=== PATIENT | female | born 1980 | race Caucasian/White ===

== ENCOUNTER 2018-02-02 17:30 | Emergency (ER) | payer SELFPAY ==
[2018-02-02] MEDS ORDERED: NA CHLORIDE 0.9% 1,000 ML ONE (19:28)
[2018-02-02] MEDS ORDERED: METOCLOPRAMIDE 10 MG/2mL INJ ONE (19:28)
[2018-02-02] MEDS ORDERED: LISINOPRIL 10 MG TAB ONE (19:28)
[2018-02-02] MEDS ORDERED: KETOROLAC 30 MG/ML INJ ONE (19:41)
[2018-02-02 19:52] LABS: Absolute Lymphocytes (CBC) 1.7 K/uL (0.7-4.9); Absolute Monocytes 0.3 K/uL (0.1-1.3); Absolute Neutrophil 10.1 K/uL (1.8-8.0); Basophils % 0.5 % (0-1.3); Eosinophils % 0.5 % (0-4.4); Hematocrit 40.8 % (36.0-45.0); Lymphocytes % 13.6 % (15.3-44.8); MCH 29.8 pg (27.0-35.0); MCV 87.4 fL (80-100); MPV 9.5 fL (7.6-11.3); Monocytes % 2.6 % (3.3-12.3); Protime INR 1.12; RBC Red Blood Cell Count 4.67 M/uL (3.86-4.86)
--- NOTE | 2018-02-02 19:54 | RAD REPORT ---
EXAM DESCRIPTION: Connie Single View02/02/2018 7:45 pm CLINICAL HISTORY: Cough COMPARISON: July 2017 FINDINGS: The lungs appear clear of acute infiltrate. The heart is normal size IMPRESSION: No acute abnormalities displayed
[2018-02-02 20:05] LABS: ALT/SGPT 48 U/L (12-78); AST/SGOT 41 U/L (15-37); Albumin 3.7 g/dL (3.4-5.0); Alkaline Phosphatase 84 U/L (45-117); BUN Blood Urea Nitrogen 15 mg/dL (7-18); Bicarbonate 27 mmol/L (21-32); Bilirubin Direct < 0.1 mg/dL (0-0.2); Bilirubin Total 0.2 mg/dL (0.2-1.0); Glucose Level 104 mg/dL (74-106); Magnesium 2.2 mg/dL (1.8-2.4); NT PRO-BNP 18 pg/mL (<125); Potassium 3.9 mmol/L (3.5-5.1); Protein, Total 8.3 g/dL (6.4-8.2); Sodium Level 140 mmol/L (136-145); Troponin (Emerg Dept Use Only) < 0.02 ng/mL (0.0-0.045)
--- NOTE | 2018-02-02 20:29 | EDPHYS ---
Physician Documentation [facility] Name: Zakia Franks Age: 37 yrs Sex: Female : 1980 Arrival Date: 02/02/2018 Time: 17:34 Bed 7 Private MD: ED Physician Celestina Driscoll HPI: 02/02 20:25 This 37 yrs old Female presents to ER via Ambulatory with complaints of ma2 Vomiting, Headache. 20:25 The patient presents to the emergency department with nausea, headache. Possible ma2 causes: unknown. Associated signs and symptoms: Pertinent positives: nausea, cough, headache severe, gradual similar to old headaches before, , Pertinent negatives: abdominal pain, belching, constipation, dysuria, flatulence, GI bleeding, nausea. Severity of symptoms: At their worst the symptoms were moderate in the emergency department the symptoms are unchanged have improved. The patient has experienced similar episodes in the past. 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 - Social history:: Smoking status: Patient uses tobacco products, smokes one pack cigarettes per day. Patient/guardian denies using alcohol, street drugs, The patient lives alone, with family. - Ebola Screening: : No symptoms or risks identified at this time. - Family history:: not pertinent. ROS: 20:25 Constitutional: Negative for fever, chills, and weight loss, Cardiovascular: Negative ma2 for chest pain, palpitations, and edema, Respiratory: Negative for shortness of breath, cough, wheezing, and pleuritic chest pain, Abdomen/GI: Negative for abdominal pain, nausea, diarrhea, and constipation. 20:25 Respiratory: Positive for cough, Negative for dyspnea on exertion, hemoptysis, orthopnea, pleurisy, shortness of breath, sputum production, wheezing. 20:25 Neuro: Positive for headache, Negative for altered mental status, dizziness, gait disturbance, loss of consciousness, numbness, seizure activity, syncope, near syncope, tinnitus, visual changes, weakness, acute changes. 20:25 All other systems are negative. Exam: 20:25 Constitutional: This is a well developed, well nourished patient who is awake, alert, ma2 and in no acute distress. Eyes: Pupils equal round and reactive to light, extra-ocular motions intact. Lids and lashes normal. Conjunctiva and sclera are non-icteric and not injected. Cornea within normal limits. Periorbital areas with no swelling, redness, or edema. Chest/axilla: Normal chest wall appearance and motion. Nontender with no deformity. No lesions are appreciated. Cardiovascular: Regular rate and rhythm with a normal S1 and S2. No gallops, murmurs, or rubs. Normal PMI, no JVD. No pulse deficits. Respiratory: Lungs have equal breath sounds bilaterally, clear to auscultation and percussion. No rales, rhonchi or wheezes noted. No increased work of breathing, no retractions or nasal flaring. Skin: Warm, dry with normal turgor. Normal color with no rashes, no lesions, and no evidence of cellulitis. MS/ Extremity: Pulses equal, no cyanosis. Neurovascular intact. Full, normal range of motion. Neuro: Awake and alert, GCS 15, oriented to person, place, time, and situation. Cranial nerves II-XII grossly intact. Motor strength 5/5 in all extremities. Sensory grossly intact. Cerebellar exam normal. Normal gait. Vital Signs: 18:06 BP 148 / 110; Pulse 87; Resp 18 S; Temp 98.0(TE); Pulse Ox 100% on R/A; Weight 102.06 aa5 kg (M); Height 5 ft. 7 in. (170.18 cm) (M); Pain 10/10; 19:12 BP 149 / 107; Pulse 82; Resp 18; Pulse Ox 100% on R/A; lp1 20:04 BP 143 / 91; Pulse 71; Resp 18; Pulse Ox 100% on R/A; Pain 6/10; lp1 18:06 Body Mass Index 35.24 (102.06 kg, 170.18 cm) aa5 MDM: 19:00 Patient medically screened. wy2 20:25 Differential diagnosis: Nonspecific abd pain, cholecystitis, pancreatitis, viral ma2 gastroenteritis, gastroenteritis. Data reviewed: vital signs, EMS record, assisted records, lab test result(s), EKG. Counseling: I had a detailed discussion with the patient and/or guardian regarding: the historical points, exam findings, and any diagnostic results supporting the discharge/admit diagnosis, the need for outpatient follow up, the need for further work-up and treatment in the hospital, the need to transfer to another facility. Medical screen evaluation completed. EMTALA emergency medical condition absent. Response to treatment: the patient's symptoms have markedly improved after treatment. 02/02 19:14 Order name: Basic Metabolic Panel; Complete Time: 20:14 [facility] 02/02 19:14 Order name: CBC with Diff; Complete Time: 20:14 [facility] 02/02 19:14 Order name: LFT's; Complete Time: 20:14 [facility] 02/02 19:14 Order name: Magnesium; Complete Time: 20:14 [facility] 02/02 19:14 Order name: NT PRO-BNP; Complete Time: 20:14 [facility] 02/02 19:14 Order name: PT-INR; Complete Time: 20:14 [facility] 02/02 19:14 Order name: Troponin (emerg Dept Use Only); Complete Time: 20:14 [facility] 02/02 19:14 Order name: XRAY Chest (1 view); Complete Time: 20:14 [facility] 02/02 19:14 Order name: EKG; Complete Time: 19:15 [facility] 02/02 19:14 Order name: Cardiac monitoring; Complete Time: 19:39 wy02/02 19:14 Order name: EKG - Nurse/Tech; Complete Time: 19:39 [facility] 02/02 19:14 Order name: IV Saline Lock; Complete Time: 19:39 [facility] 02/02 19:14 Order name: Labs collected and sent; Complete Time: 19:40 [facility] 02/02 19:14 Order name: O2 Per Protocol; Complete Time: 19:40 [facility] 02/02 19:14 Order name: O2 Sat Monitoring; Complete Time: 19:40 ma2 Administered Medications: 19:37 Drug: NS 0.9% 1000 ml Route: IV; Rate: 1 bolus; Site: right antecubital; lp1 20:49 Follow up: IV Status: Completed infusion; IV Intake: 1000ml lp1 19:37 CANCELLED (Med not available ): Benadryl 50 mg IVP once lp1 19:38 Drug: Reglan 10 mg Route: IVP; Site: right antecubital; lp1 20:05 Follow up: Response: No adverse reaction; Nausea is decreased lp1 19:38 Drug: Lisinopril 10 mg Route: PO; lp1 20:05 Follow up: Response: Blood pressure is lowered lp1 19:38 Drug: TORadol 30 mg Route: IVP; Site: right antecubital; lp1 20:05 Follow up: Response: Pain is decreased lp1 Disposition: 02/02/18 20:28 Discharged to Home. Impression: Headache, Bronchitis, not specified as acute or chronic. - Condition is Stable. - Discharge Instructions: Acute Bronchitis, Adult. - Prescriptions for Reglan 10 mg Oral Tablet - take 1 tablet by ORAL route every 6 hours . take 30 minutes before meals and at bedtime; 100 tablet. Zithromax Z- Atilio 250 mg Oral Tablet - take 1 tablet by ORAL route once daily for 3 days; 3 tablet. Lisinopril- Hydrochlorothiazide 20-12.5 mg Oral Tablet - take 1 tablet by ORAL route once daily; 60 tablet. - Medication Reconciliation Form, Thank You Letter, Antibiotic Education, Prescription Opioid Use form. - Follow up: Private Physician; When: Tomorrow; Reason: Continuance of care. - Problem is new. - Symptoms are unchanged. Signatures: Dispatcher [employer] EDMS Opal Lacy RN RN aa5 Yessy Arambula RN RN lp1 Celestina Driscoll MD MD ma2 Corrections: (The following items were deleted from the chart) 19:37 19:14 Benadryl 50 mg IVP once ordered. ma2 lp1 20:49 20:28 02/02/2018 20:28 Discharged to Home. Impression: Headache; Bronchitis, not lp1 specified as acute or chronic. Condition is Stable. Forms are Medication Reconciliation Form, Thank You Letter, Antibiotic Education, Prescription Opioid Use. Follow up: Private Physician; When: Tomorrow; Reason: Continuance of care. Problem is new. Symptoms are unchanged. ma2
--- NOTE | 2018-02-02 20:29 | ER ---
Nurse's Notes [facility] Name: Zakia Franks Age: 37 yrs Sex: Female : 1980 Arrival Date: 02/02/2018 Time: 17:34 Bed 7 Private MD: Diagnosis: Headache;Bronchitis, not specified as acute or chronic Presentation: 02/02 18:01 Presenting complaint: Patient states: frontal headache that began today. Pt also aa5 reports nausea and vomiting. Pt also reports cough that began 2 weeks ago. Transition of care: patient was not received from another setting of care. Onset of symptoms was February 02, 2018. Risk Assessment: Do you want to hurt yourself or someone else? Patient reports no desire to harm self or others. Initial Sepsis Screen: Does the patient meet any 2 criteria? No. Patient's initial sepsis screen is negative. Does the patient have a suspected source of infection? No. Patient's initial sepsis screen is negative. Care prior to arrival: None. 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 - Social history:: Smoking status: Patient uses tobacco products, smokes one pack cigarettes per day. Patient/guardian denies using alcohol, street drugs, The patient lives alone, with family. - Ebola Screening: : No symptoms or risks identified at this time. - Family history:: not pertinent. Screenin:16 Abuse screen: Denies threats or abuse. Denies injuries from another. Nutritional lp1 screening: No deficits noted. Tuberculosis screening: No symptoms or risk factors identified. Fall Risk None identified. Assessment: 19:13 General: Appears uncomfortable, Behavior is cooperative. Pain: Complains of pain in lp1 head Pain currently is 10 out of 10 on a pain scale. Quality of pain is described as crushing. Neuro: Level of Consciousness is awake, alert, obeys commands, Oriented to person, place, time, situation, Moves all extremities. Full function Gait is steady, Pupils are PERRLA, Reports headache in entire photophobia. Cardiovascular: Patient's skin is warm and dry. Respiratory: Reports cough that is persistent Respiratory effort is even, unlabored, Respiratory pattern is regular, Breath sounds are clear bilaterally. GI: Abdomen is non-distended, Reports nausea. : No signs and/or symptoms were reported regarding the genitourinary system. EENT: No signs and/or symptoms were reported regarding the EENT system. Derm: Skin is pink, warm \T\ dry. Musculoskeletal: Circulation, motion, and sensation intact. 20:03 Reassessment: Patient states pain decreased at this time; asking when she will be lp1 discharged, aware of waiting for blood results. Vital Signs: 18:06 BP 148 / 110; Pulse 87; Resp 18 S; Temp 98.0(TE); Pulse Ox 100% on R/A; Weight 102.06 aa5 kg (M); Height 5 ft. 7 in. (170.18 cm) (M); Pain 10/10; 19:12 BP 149 / 107; Pulse 82; Resp 18; Pulse Ox 100% on R/A; lp1 20:04 BP 143 / 91; Pulse 71; Resp 18; Pulse Ox 100% on R/A; Pain 6/10; lp1 18:06 Body Mass Index 35.24 (102.06 kg, 170.18 cm) aa5 ED Course: 17:34 Patient arrived in ED. mr 18:03 Triage completed. aa5 18:03 Arm band placed on. aa5 19:00 Celestina Driscoll MD is Attending Physician. ma2 19:03 Yessy Arambula, OSCAR is Primary Nurse. lp1 19:30 Inserted saline lock: 20 gauge in right antecubital area, using aseptic technique. lp1 Blood collected. 19:41 Patient has correct armband on for positive identification. Placed in gown. Call light lp1 in reach. air sampling and monitoring on. Pulse ox on. NIBP on. 19:45 XRAY Chest (1 view) In Process Unspecified. EDMS 20:48 No provider procedures requiring assistance completed. IV discontinued, No lp1 redness/swelling at site. Pressure dressing applied. Administered Medications: 19:37 Drug: NS 0.9% 1000 ml Route: IV; Rate: 1 bolus; Site: right antecubital; lp1 20:49 Follow up: IV Status: Completed infusion; IV Intake: 1000ml lp1 19:37 CANCELLED (Med not available ): Benadryl 50 mg IVP once lp1 19:38 Drug: Reglan 10 mg Route: IVP; Site: right antecubital; lp1 20:05 Follow up: Response: No adverse reaction; Nausea is decreased lp1 19:38 Drug: Lisinopril 10 mg Route: PO; lp1 20:05 Follow up: Response: Blood pressure is lowered lp1 19:38 Drug: TORadol 30 mg Route: IVP; Site: right antecubital; lp1 20:05 Follow up: Response: Pain is decreased lp1 Intake: 20:49 IV: 1000ml; Total: 1000ml. lp1 Outcome: 20:28 Discharge ordered by . vini 20:48 Discharged to home ambulatory. lp1 20:48 Condition: good 20:48 Discharge instructions given to patient, Instructed on discharge instructions, follow up and referral plans. medication usage, Demonstrated understanding of instructions, follow-up care, medications, Prescriptions given X 3. 20:49 Patient left the ED. lp1 Signatures: Dispatcher [employer] EDMA Camille Sherman ReginoOpal RN RN aa5 Yessy Arambula RN RN lp1 Celestina Driscoll MD MD ma2 Corrections: (The following items were deleted from the chart) 20:04 19:13 Neuro: Level of Consciousness is awake, alert, obeys commands, Oriented to lp1 person, place, time, situation, Moves all extremities. Full function Gait is steady, Pupils are PERRLA, Reports headache in entire lp1
[2018-02-02 21:16] VITALS: TEMP 98; O2SAT 100
[2018-02-02 21:18] VITALS: BP 143/91
--- NOTE | 2018-02-03 09:25 | EKG ---
Test Date: 2018-02-02 Test Time: 19:34:57 Ed Case Manager: DARIEL MEASUREMENT RESULTS: Intervals: Rate: 74 GA: 146 QRSD: 72 QT: 394 QTc: 437 D Hanis: P: 32 GA: 146 QRS: 24 T: 34 INTERPRETIVE STATEMENTS: Normal sinus rhythm with sinus arrhythmia Normal ECG Compared to ECG 07/29/2017 16:05:04 No significant changes Electronically Signed On 02-03-18 09:24:07 CDT by Micheal Rowe
== END 2018-02-02 20:49 | disposition home or self-care (01) ==
LOC: ER 17:30
DX: J40 Bronchitis, not specified as acute or chronic (principal); I10 Essential (primary) hypertension
CPT/HCPCS: 36415; 71045; 80048; 80076; 83735; 83880; 84484; 85025; 85610; 93005; 96361; 96374; 96375; 99284; J2765; J7030

== ENCOUNTER 2018-04-30 11:40 | Emergency (ER) | payer SELFPAY ==
[2018-04-30 14:58] LABS: Absolute Lymphocytes (CBC) 3.3 K/uL (0.7-4.9); Absolute Monocytes 0.4 K/uL (0.1-1.3); Absolute Neutrophil 4.5 K/uL (1.8-8.0); Eosinophils % 2.7 % (0-4.4); Hematocrit 39.6 % (36.0-45.0); MCH 29.7 pg (27.0-35.0); MCV 87.6 fL (80-100); MPV 9.1 fL (7.6-11.3); Monocytes % 5.1 % (3.3-12.3); RBC Red Blood Cell Count 4.52 M/uL (3.86-4.86)
[2018-04-30 15:12] LABS: ALT/SGPT 33 U/L (12-78); AST/SGOT 19 U/L (15-37); Albumin 3.7 g/dL (3.4-5.0); Alkaline Phosphatase 78 U/L (45-117); BUN Blood Urea Nitrogen 15 mg/dL (7-18); Bicarbonate 26 mmol/L (21-32); Bilirubin Direct < 0.1 mg/dL (0-0.2); Bilirubin Total 0.3 mg/dL (0.2-1.0); Glucose Level 91 mg/dL (74-106); Lipase 150 U/L (73-393); Magnesium 2.2 mg/dL (1.8-2.4); Potassium 3.9 mmol/L (3.5-5.1); Sodium Level 140 mmol/L (136-145)
[2018-04-30 16:51] LABS: Urine Blood NEGATIVE (NEG); Urine Glucose NEGATIVE (NEG); Urine Protein NEGATIVE (NEG); Urine pH 6.5 (5.0-7.0)
--- NOTE | 2018-04-30 17:07 | RAD REPORT ---
EXAM DESCRIPTION: CT - Head C Spine Mpr Wo Con - 04/30/2018 3:21 pm CLINICAL HISTORY: Headache and right hand numbness COMPARISON: None. TECHNIQUE: Computed axial tomography of the head and cervical spine was obtained. Sagittal and coronal reconstruction was performed. All CT scans are performed using dose optimization technique as appropriate and may include automated exposure control or mA/KV adjustment according to patient size. FINDINGS: An intracranial bleed is not seen. The ventricles are normal in caliber. An extra-axial fl uid collection is not noted.Fluid within the visualized sinuses and mastoids is not seen A cervical fracture is not visualized. No dislocation is noted. Central spinal stenosis is not noted. Neural foramina appear patent. Large disc bulge/herniation not seen Increased density is present within the upper thoracic/ cervical esophagus presumably representing ga stroesophageal reflux of oral contrast IMPRESSION: No acute intracranial abnormality is seen. A cervical fracture is not visualized. Spinal stenosis is not noted. If the patient continues to have symptoms to suggest intracranial /spinal cord pathology then MRI would be recommended
--- NOTE | 2018-04-30 17:13 | RAD REPORT ---
EXAM DESCRIPTION: CT - Abdomen Pelvis W Contrast - 04/30/2018 4:52 pm CLINICAL HISTORY: Abdominal pain. COMPARISON: July 2017 TECHNIQUE: Computed axial tomography of the abdomen and pelvis was obtained. 100 cc Isovue-300 is ad ministered intravenously. Oral contrast was given. All CT scans are performed using dose optimization technique as appropriate and may include automated exposure control or mA/KV adjustment according to patient size. FINDINGS: Fatty liver. Contrast present in the esophagus Spleen, pancreas, adrenals and kidneys appear unremarkable. Small renal cysts Umbilical hernia has a neck of 2 centimeters. Spondylosis involves lumbar spine resulting spinal sten osis. The appendix is normal caliber. There is no evidence of diverticulitis Uterus and gallbladder have been removed IMPRESSION: Gastroesophageal reflux Fatty liver
--- NOTE | 2018-04-30 17:26 | ER ---
Nurse's Notes [facility] Name: Zakia Franks Age: 37 yrs Sex: Female : 1980 Arrival Date: 04/30/2018 Time: 11:43 Bed 17 Private MD: Diagnosis: Headache;Unspecified abdominal pain;Paresthesia of skin-Right hand Presentation: 04/30 12:22 Presenting complaint: Patient states: "I've been passing blood clots in my stool since january, but its starting to get worse. I've had a real real bad headache for the past 3 days and its getting to where it makes me throw up. I have high blood pressure and I've been out of my medicine. And since I was already here, since I haven't been able to feel the first three fingers on my hand." Patient states that she can move her fingers normally but she can't feel it. 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 Patient states the she see the blood and clots when she wipes after having a bowel movement. Transition of care: patient was not received from another setting of care. Onset of symptoms was April 30, 2018. Risk Assessment: Do you want to hurt yourself or someone else? Patient reports no desire to harm self or others. Initial Sepsis Screen: Does the patient meet any 2 criteria? HR > 90 bpm. Does the patient have a suspected source of infection? No. Patient's initial sepsis screen is negative. Care prior to arrival: None. 12:22 Method Of Arrival: Ambulatory aj1 12:22 Acuity: NILO 3 aj1 Triage Assessment: 12:27 General: Appears in no apparent distress. comfortable, Behavior is calm, cooperative, aj1 appropriate for age. Pain: Complains of pain in left zoroastrianism and right zoroastrianism. Pain: Pain currently is 7 out of 10 on a pain scale. Neuro: Level of Consciousness is awake, alert, obeys commands, Moves all extremities. Full function Gait is steady, Speech is normal, Facial symmetry appears normal. Cardiovascular: Patient's skin is warm and dry. Respiratory: Airway is patent Respiratory effort is even, unlabored, Respiratory pattern is regular, symmetrical. GI: Reports blood when she wipes after having a bowel movement. 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 - Social history:: Smoking status: Patient/guardian denies using tobacco. - Ebola Screening: : No symptoms or risks identified at this time. Screenin:06 Abuse screen: Denies threats or abuse. Nutritional screening: No deficits noted. em Tuberculosis screening: No symptoms or risk factors identified. Fall Risk None identified. Assessment: 14:25 General: Appears in no apparent distress. comfortable, Behavior is calm, cooperative, em Reports fever for. Pain: Pain currently is 8 out of 10 on a pain scale. Neuro: Level of Consciousness is awake, alert, obeys commands, Oriented to person, place, time, situation, Reports headache paresthesias in right arm. Cardiovascular: Patient's skin is warm and dry. Respiratory: Airway is patent Respiratory effort is even, unlabored, Respiratory pattern is regular, symmetrical. GI: Abdomen is round Bowel sounds present X 4 quads. Abd is soft and non tender X 4 quads. Reports rectal bleeding, nausea, since off and on since January Patient currently denies hemorrhoids. : Urine is clear, Denies burning with urination. Derm: Skin is intact, is healthy with good turgor, Skin is pink, warm \\T\\ dry. Musculoskeletal: Range of motion: intact in all extremities. 14:40 Reassessment: I agree with previous assessment. hb 16:14 Reassessment: Patient appears in no apparent distress at this time. Patient and/or em family updated on plan of care and expected duration. Pain level reassessed. Patient is alert, oriented x 3, equal unlabored respirations, skin warm/dry/pink. 17:00 Reassessment: Patient appears in no apparent distress at this time. Patient and/or em family updated on plan of care and expected duration. Pain level reassessed. Patient is alert, oriented x 3, equal unlabored respirations, skin warm/dry/pink. rates pain 3/10 Patient states feeling better. Patient states symptoms have improved. Vital Signs: 12:27 BP 148 / 99; Pulse 92; Resp 20; Temp 97.4; Pulse Ox 98% on R/A; Weight 106.59 kg (R); aj1 Height 5 ft. 7 in. (170.18 cm) (R); Pain 8/10; 14:25 BP 132 / 97; Pulse 98; Resp 16; Pulse Ox 99% on R/A; Pain 7/10; em 16:11 BP 139 / 90; Pulse 57; Resp 18; Pulse Ox 99% on R/A; Pain 3/10; em 17:15 BP 142 / 94; Pulse 72; Resp 18; Pulse Ox 99% on R/A; Pain 3/10; em 12:27 Body Mass Index 36.81 (106.59 kg, 170.18 cm) aj1 ED Course: 11:43 Patient arrived in ED. sb2 12:06 Patient's name was called from ER [facility]. No response. aj1 12:26 Triage completed. aj1 12:27 Arm band placed on Patient placed in waiting room, Patient notified of wait time. aj1 13:10 Patient's name was called from ER [facility]. No response. aj1 13:59 Derek Wayne PA is PHCP. cp 13:59 Prasad Fulton MD is Attending Physician. cp 14:20 Patient has correct armband on for positive identification. Placed in gown. Bed in low em position. Call light in reach. Side rails up X2. 14:20 Initial lab(s) drawn, by me, sent to lab. Urine collected: clean catch specimen, clear. em Inserted saline lock: 20 gauge in right antecubital area, using aseptic technique. Blood collected. 14:21 Steve Doran LVN is Primary Nurse. em 15:14 Oral contrast given. jg6 15:21 CT Head C Spine In Process Unspecified. EDMS 16:53 CT Abd/Pelvis - W/Contrast: blood in stool In Process Unspecified. EDMS 17:24 Deon Reeves MD is Referral Physician. cp 17:25 Yamil Mason MD is Referral Physician. cp 18:00 No provider procedures requiring assistance completed. IV discontinued, intact, em bleeding controlled, No redness/swelling at site. Pressure dressing applied. Administered Medications: 18:00 Not Given (Physician Discretion): Decadron - Dexamethasone 10 mg IVP once em 18:00 Not Given (Physician Discretion): Reglan 10 mg IVP once; over 1 to 2 minutes em Outcome: 17:26 Discharge ordered by . shruthi 18:00 Discharged to home ambulatory. em 18:00 Condition: good 18:00 Discharge instructions given to patient, Instructed on discharge instructions, follow up and referral plans. medication usage, Demonstrated understanding of instructions, follow-up care, medications, Prescriptions given X 2. 18:04 Patient left the ED. em Signatures: Dispatcher [employer] Sapna Ingram RN RN aj1 Steve Doran, INFORMATION SUPPORT PROJECT MANAGER INFORMATION SUPPORT PROJECT MANAGER em Derek Wayne, HADLEY PA Zakia Mcnamara RN RN Salena Haider sb2 Ernestine Rivas6 Corrections: (The following items were deleted from the chart) 15:17 14:25 Neuro: Level of Consciousness is awake, alert, obeys commands, Oriented to em person, place, time, situation, Reports headache em
--- NOTE | 2018-04-30 17:26 | EDPHYS ---
Physician Documentation [facility] Name: Zakia Franks Age: 37 yrs Sex: Female : 1980 Arrival Date: 04/30/2018 Time: 11:43 Bed 17 Private MD: ED Physician Prasad Fulton HPI: 04/30 14:25 This 37 yrs old Female presents to ER via Ambulatory with complaints of cp Bloody Stools, Headache, Numbness - FINGERS. 14:25 The patient or guardian complains of decreased sensation of right thumb and right index cp and right middle fingers. 14:25 Context: resulted from unknown cause, started last month. cp 14:25 Treatment prior to arrival includes: no previous treatment. The patient presents to the emergency department with rectal bleeding, a small amount, bright red blood with bowel movement, with multiple such episodes, intermittent. 14:25 Onset: The symptoms/episode began/occurred 4 month(s) ago. cp 14:25 Abdominal pain: described as waxing and waning, located in the abdomen diffusely, that cp does not radiate. Associated signs and symptoms: Pertinent negatives: chest pain, constipation, fever, vomiting. 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 - Social history:: Smoking status: Patient/guardian denies using tobacco. - Ebola Screening: : No symptoms or risks identified at this time. ROS: 14:30 Constitutional: Negative for body aches, chills, fever, poor PO intake. cp 14:30 Eyes: Positive for photophobia, Negative for discharge, redness. cp 14:30 ENT: Negative for drainage from ear(s), ear pain, sore throat, difficulty swallowing, difficulty handling secretions. 14:30 Neck: Positive for tenderness, Negative for injury or acute deformity, stiffness, bony tenderness. 14:30 Cardiovascular: Negative for chest pain, edema, palpitations. 14:30 Respiratory: Negative for cough, shortness of breath, wheezing. 14:30 Abdomen/GI: Positive for abdominal pain, rectal bleeding, Negative for vomiting, diarrhea, constipation, anorexia. 14:30 Back: Negative for pain at rest, pain with movement. 14:30 : Negative for urinary symptoms. 14:30 Skin: Negative for cellulitis, rash. 14:30 Neuro: Positive for headache, decreased sensation of left hand, Negative for altered mental status, seizure activity, weakness. 14:30 All other systems are negative. Exam: 14:35 Constitutional: The patient appears in no acute distress, alert, awake, cp non-diaphoretic, non-toxic, well developed, well nourished. 14:35 Head/Face: Normocephalic, atraumatic. cp 14:35 Eyes: Periorbital structures: appear normal, Pupils: equal, round, and reactive to light and accomodation, Extraocular movements: intact throughout, Conjunctiva: normal, no exudate, no injection, Sclera: no appreciated abnormality, Lids and lashes: appear normal, bilaterally. 14:35 ENT: External ear(s): are unremarkable, Ear canal(s): are normal, clear, TM's: bulging, is not appreciated, bilaterally, dullness, bilaterally, erythema, is not appreciated, bilaterally, Nose: is normal, Mouth: Lips: moist, Oral mucosa: pink and intact, moist, Posterior pharynx: is normal, airway is patent, no erythema, no exudate, Voice: is normal. 14:35 Neck: ROM/movement: pain, that is mild, with flexion, limited range of motion, is not appreciated, Meningeal signs: are not present, nuchal rigidity, is not appreciated, Lymph nodes: no appreciated lymphadenopathy. 14:35 Chest/axilla: Inspection: normal, Palpation: is normal, no crepitus, no tenderness. 14:35 Cardiovascular: Rate: normal, Rhythm: regular, Edema: is not appreciated, JVD: is not appreciated. 14:35 Respiratory: the patient does not display signs of respiratory distress, Respirations: normal, no use of accessory muscles, no retractions, no splinting, no tachypnea, labored breathing, is not present, Breath sounds: are clear throughout, no decreased breath sounds, no stridor, no wheezing. 14:35 Abdomen/GI: Inspection: abdomen appears normal, Bowel sounds: active, all quadrants, Palpation: soft, in all quadrants, mild abdominal tenderness, in all quadrants, rebound tenderness, is not appreciated, voluntary guarding, is not appreciated, involuntary guarding, is not appreciated. 14:35 Back: CVA tenderness, is absent. 14:35 Musculoskeletal/extremity: the right hand decreased sensation. 14:35 Skin: cellulitis, is not appreciated, no rash present. 14:35 Neuro: Orientation: to person, place \T\ time. Mentation: is normal, Cerebellar function: is grossly normal, Motor: moves all fours, strength is normal. 14:56 : Rectal exam: Rectal tone: normal, Guaiac testing: insufficient stool is present to send for examination. Vital Signs: 12:27 BP 148 / 99; Pulse 92; Resp 20; Temp 97.4; Pulse Ox 98% on R/A; Weight 106.59 kg (R); aj1 Height 5 ft. 7 in. (170.18 cm) (R); Pain 8/10; 14:25 BP 132 / 97; Pulse 98; Resp 16; Pulse Ox 99% on R/A; Pain 7/10; em 16:11 BP 139 / 90; Pulse 57; Resp 18; Pulse Ox 99% on R/A; Pain 3/10; em 17:15 BP 142 / 94; Pulse 72; Resp 18; Pulse Ox 99% on R/A; Pain 3/10; em 12:27 Body Mass Index 36.81 (106.59 kg, 170.18 cm) aj1 MDM: 14:04 Patient medically screened. cp 15:00 Differential diagnosis: colitis, hemorrhoids, rectal fissure, carpal tunnel, cp neuropathy, cervical disc bulge gastritis, diverticulitis. 17:25 Data reviewed: vital signs, nurses notes, lab test result(s), radiologic studies, CT cp scan. 17:25 Counseling: I had a detailed discussion with the patient and/or guardian regarding: the historical points, exam findings, and any diagnostic results supporting the discharge/admit diagnosis, the presence of at least one elevated blood pressure reading (>120/80) during this emergency department visit, lab results, radiology results, the need for outpatient follow up, a family practitioner, a returns clerk, a neurologist, to return to the emergency department if symptoms worsen or persist or if there are any questions or concerns that arise at home. 04/30 14:20 Order name: Basic Metabolic Panel; Complete Time: 16:14 cp 04/30 17:17 Interpretation: Normal except: CL 108; GFR 70. 04/30 14:20 Order name: CBC with Diff; Complete Time: 16:14 04/30 14:20 Order name: Creatinine for Radiology; Complete Time: 16:14 04/30 14:20 Order name: Hepatic Function; Complete Time: 16:14 20 17:20 Interpretation: Normal except: GLOB 4.3; A/G 0.9. 04/30 14:20 Order name: Lipase; Complete Time: 16:14 04/30 14:20 Order name: Magnesium; Complete Time: 16:14 04/30 14:20 Order name: IV Saline Lock; Complete Time: 14:46 04/30 14:20 Order name: PT-INR; Complete Time: 16:14 04/30 14:20 Order name: Ptt, Activated; Complete Time: 16:14 04/30 14:58 Order name: CT Head C Spine; Complete Time: 17:14 04/30 14:58 Order name: CT Abd/Pelvis - W/Contrast: blood in stool; Complete Time: 17:14 04/30 17:15 Interpretation: Report reviewed. 04/30 16:28 Order name: Urine Dipstick--Ancillary (enter results); Complete Time: 17:14 20 14:20 Order name: Labs collected and sent; Complete Time: 14:46 04/30 14:20 Order name: Urine Dipstick-Ancillary (obtain specimen); Complete Time: 14:45 04/30 14:20 Order name: Urine Test (obtain specimen); Complete Time: 14:45 cp Administered Medications: 18:00 Not Given (Physician Discretion): Decadron - Dexamethasone 10 mg IVP once em 18:00 Not Given (Physician Discretion): Reglan 10 mg IVP once; over 1 to 2 minutes em Disposition: 18:15 Chart complete. Disposition: 04/30/18 17:26 Discharged to Home. Impression: Headache, Unspecified abdominal pain, Paresthesia of skin - Right hand. - Condition is Stable. - Discharge Instructions: Abdominal Pain, Adult, Carpal Tunnel Syndrome, Gastroesophageal Reflux Disease, Adult, General Headache Without Cause, Hypertension, Paresthesia. - Prescriptions for Protonix 40 mg Oral Tablet - take 1 tablet by ORAL route once daily; 30 tablet. Lisinopril- Hydrochlorothiazide 20-12.5 mg Oral Tablet - take 1 tablet by ORAL route once daily; 30 tablet. - Work release form, Medication Reconciliation Form, Thank You Letter, Antibiotic Education, Prescription Opioid Use form. - Follow up: Deon Reeves MD; When: 1 - 2 days; Reason: abdominal pain/blood in stool. Follow up: Private Physician; When: 2 - 3 days; Reason: hypertension f/u. Follow up: Yamil Mason MD; When: 2 - 3 days; Reason: headache and paresthesias of right hand. - Problem is an ongoing problem. - Symptoms have improved. Signatures: Dispatcher [employer] Sapna Ingram RN RN aj1 Steve Doran LVN LVN em Derek Wayne PA PA cp Baxter, Heather, RN RN Corrections: (The following items were deleted from the chart) 18:04 17:26 04/30/2018 17:26 Discharged to Home. Impression: Headache; Unspecified abdominal em pain; Paresthesia of skin - Right hand. Condition is Stable. Forms are Medication Reconciliation Form, Thank You Letter, Antibiotic Education, Prescription Opioid Use. Follow up: Deon Reeves; When: 1 - 2 days; Reason: abdominal pain/blood in stool. Follow up: Private Physician; When: 2 - 3 days; Reason: hypertension f/u. Follow up: Yamil Mason; When: 2 - 3 days; Reason: headache and paresthesias of right hand. Problem is an ongoing problem. Symptoms have improved. cp
[2018-04-30 18:45] VITALS: TEMP 97.4
[2018-04-30 18:46] VITALS: O2SAT 99
[2018-04-30 18:49] VITALS: BP 142/94
== END 2018-04-30 18:04 | disposition home or self-care (01) ==
LOC: ER 11:40
DX: R10.9 Unspecified abdominal pain (principal); R20.2 Paresthesia of skin; I10 Essential (primary) hypertension; Z85.42 Personal history of malignant neoplasm of other parts of uterus
CPT/HCPCS: 36415; 70450; 72125; 74177; 80048; 80076; 81003; 83690; 83735; 85025; 85610; 85730; 99284; Q9967

== ENCOUNTER 2018-05-20 01:12 | Emergency (ER) | payer SELFPAY ==
--- OUTSIDE RECORDS SUMMARY | 2018-05-20 01:13 | XMS REPORT ---
:1980 [facility] Address [address] [place] [address] Care Team Providers Name Role Phone Unavailable Unavailable Unavailable Problems This patient has no known problems. Allergies, Adverse Reactions, Alerts This patient has no known allergies or adverse reactions. Medications This patient has no known medications.
[2018-05-20 01:57] LABS: Absolute Lymphocytes (CBC) 3.7 K/uL (0.7-4.9); Absolute Monocytes 0.6 K/uL (0.1-1.3); Absolute Neutrophil 4.3 K/uL (1.8-8.0); Basophils % 0.8 % (0-1.3); Hematocrit 39.2 % (36.0-45.0); Lymphocytes % 41.3 % (15.3-44.8); MPV 8.9 fL (7.6-11.3); Monocytes % 7.2 % (3.3-12.3); RBC Red Blood Cell Count 4.51 M/uL (3.86-4.86)
[2018-05-20 02:00] LABS: Protime INR 1.03
[2018-05-20] MEDS ORDERED: ONDANSETRON 4 MG/2 ML VIAL ONE ×2 (02:03→03:39)
[2018-05-20] MEDS ORDERED: MORPHINE 4 MG/ML SYR ONE ×2 (02:03→03:38)
[2018-05-20 02:13] LABS: BUN Blood Urea Nitrogen 14 mg/dL (7-18); Bicarbonate 29 mmol/L (21-32); Glucose Level 105 mg/dL (74-106); Magnesium 2.2 mg/dL (1.8-2.4); Potassium 3.7 mmol/L (3.5-5.1); Sodium Level 138 mmol/L (136-145); Troponin (Emerg Dept Use Only) < 0.02 ng/mL (0.0-0.045)
[2018-05-20 02:18] LABS: NT PRO-BNP < 5 pg/mL (<125)
--- NOTE | 2018-05-20 02:27 | EDPHYS ---
Physician Documentation [facility] Name: Zakia Franks Age: 37 yrs Sex: Female : 1980 Arrival Date: 05/20/2018 Time: 01:13 Bed 14 Private MD: ED Physician Derek Gunter HPI: 05/20 01:31 This 37 yrs old Female presents to ER via Unassigned with complaints of kb Abdominal Pain. 01:31 The patient or guardian reports chest pain that is located primarily in the left kb lateral posterior chest and left lateral anterior chest. The pain does not radiate. Associated signs and symptoms: The patient has no apparent associated signs or symptoms. The chest pain is described as sharp. Duration: The patient or guardian reports a single episode, that is still ongoing. Modifying factors: The symptoms are alleviated by nothing. the symptoms are aggravated by activity, breathing, cough, deep breath, movement, palpation of area. Severity of pain: At its worst the pain was moderate severe in the emergency department the pain is unchanged. The patient has not experienced similar symptoms in the past. The patient has not recently seen a physician. Pt states she started having left side pain on Friday and it feels worse now. States she had a cracked rib from coughing before and the pain is similar to that. Denies trauma or injury. States she smokes so she always has a cough, but it is no worse than normal.. 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 - Social history:: Smoking status: Patient/guardian denies using tobacco. - Ebola Screening: : No symptoms or risks identified at this time. ROS: 01:29 Constitutional: Negative for fever, chills, and weight loss, ENT: Negative for injury, kb pain, and discharge, Neck: Negative for injury, pain, and swelling, Respiratory: Negative for shortness of breath, cough, wheezing, and pleuritic chest pain, Abdomen/GI: Negative for abdominal pain, nausea, vomiting, diarrhea, and constipation, Back: Negative for injury and pain, : Negative for injury, bleeding, discharge, and swelling, MS/Extremity: Negative for injury and deformity, Skin: Negative for injury, rash, and discoloration, Neuro: Negative for headache, weakness, numbness, tingling, and seizure. 01:29 Cardiovascular: Positive for chest pain, with cough, with movement, of the left lateral posterior chest and left lateral anterior chest, Negative for edema, orthopnea, palpitations, paroxysmal nocturnal dyspnea. Exam: 01:29 Constitutional: This is a well developed, well nourished patient who is awake, alert, kb and in no acute distress. Head/Face: Normocephalic, atraumatic. ENT: Nares patent. No nasal discharge, no septal abnormalities noted. Tympanic membranes are normal and external auditory canals are clear. Oropharynx with no redness, swelling, or masses, exudates, or evidence of obstruction, uvula midline. Mucous membranes moist. Neck: Trachea midline, no thyromegaly or masses palpated, and no cervical lymphadenopathy. Supple, full range of motion without nuchal rigidity, or vertebral point tenderness. No Meningismus. Cardiovascular: Regular rate and rhythm with a normal S1 and S2. No gallops, murmurs, or rubs. Normal PMI, no JVD. No pulse deficits. Respiratory: Lungs have equal breath sounds bilaterally, clear to auscultation and percussion. No rales, rhonchi or wheezes noted. No increased work of breathing, no retractions or nasal flaring. Abdomen/GI: Soft, non-tender, with normal bowel sounds. No distension or tympany. No guarding or rebound. No evidence of tenderness throughout. Skin: Warm, dry with normal turgor. Normal color with no rashes, no lesions, and no evidence of cellulitis. MS/ Extremity: Pulses equal, no cyanosis. Neurovascular intact. Full, normal range of motion. Neuro: Awake and alert, GCS 15, oriented to person, place, time, and situation. Cranial nerves II-XII grossly intact. Motor strength 5/5 in all extremities. Sensory grossly intact. Cerebellar exam normal. Normal gait. 01:29 Chest/axilla: Inspection: normal, Palpation: tenderness, that is severe, of the left lateral posterior chest and left lateral anterior chest, that totally reproduces the patient's complaints. Vital Signs: 01:37 BP 146 / 102; Pulse 107; Resp 20; Temp 98.2; Pulse Ox 99% ; Weight 108.86 kg; Height 5 ea ft. 7 in. (170.18 cm); Pain 10/10; 02:35 BP 102 / 57; Pulse 91; Resp 16; Pulse Ox 95% on R/A; ea 03:30 BP 108 / 78; Pulse 92; Resp 18; Pulse Ox 98% ; ea 04:00 BP 115 / 87; Pulse 92; Resp 18; Pulse Ox 97% on R/A; ea 05:50 BP 110 / 80; Pulse 88; Resp 18; Pulse Ox 98% ; ea 01:37 Body Mass Index 37.59 (108.86 kg, 170.18 cm) ea MDM: 01:21 Patient medically screened. kb 01:30 Data reviewed: vital signs, nurses notes. Data interpreted: Pulse oximetry: on room air kb is 98 %. Interpretation: normal. 02:23 The patient's pulmonary embolism risk score was calculated as follows: the patients kb heart rate is greater than 100 beats per minute (1.5 Pts). Counseling: I had a detailed discussion with the patient and/or guardian regarding: the historical points, exam findings, and any diagnostic results supporting the discharge/admit diagnosis, lab results, radiology results, the need for outpatient follow up, a family practitioner, to return to the emergency department if symptoms worsen or persist or if there are any questions or concerns that arise at home. 05/20 01:27 Order name: Basic Metabolic Panel; Complete Time: 02:22 kb 05/20 01:27 Order name: CBC with Diff; Complete Time: 01:58 kb 05/20 01:27 Order name: Magnesium; Complete Time: 02:22 kb 05/20 01:27 Order name: NT PRO-BNP; Complete Time: 02:22 kb 05/20 01:27 Order name: PT-INR; Complete Time: 02:05 kb 05/20 01:27 Order name: Troponin (emerg Dept Use Only); Complete Time: 02:22 kb 05/20 01:27 Order name: XRAY Chest (1 view) kb 01/09 02:25 Order name: CT Chest For PE Angio kb 05/20 01:27 Order name: EKG; Complete Time: 01:28 kb 05/20 01:27 Order name: Cardiac monitoring; Complete Time: 02:37 kb 05/20 01:27 Order name: EKG - Nurse/Tech; Complete Time: 02:37 kb 05/20 01:27 Order name: IV Saline Lock; Complete Time: 02:37 kb 05/20 01:27 Order name: Labs collected and sent; Complete Time: 02:37 kb 05/20 01:27 Order name: O2 Per Protocol; Complete Time: 02:37 kb 05/20 01:27 Order name: O2 Sat Monitoring; Complete Time: 02:37 kb Administered Medications: 01:53 Drug: Zofran 4 mg Route: IVP; Site: right antecubital; ea 02:30 Follow up: Response: No adverse reaction; Marked relief of symptoms ea 01:55 Drug: morphine 4 mg Route: IVP; Site: right antecubital; ea 02:30 Follow up: Response: No adverse reaction; Pain is decreased ea 02:26 CANCELLED (Physician Discretion): NS 0.9% 1000 ml IV at 1000 ml once kb 03:30 Drug: TORadol 30 mg Route: IVP; Site: right antecubital; ea 05:38 Follow up: Response: No adverse reaction; Pain is decreased ea 03:35 Drug: Zofran 4 mg Route: IVP; Site: right antecubital; ea 04:00 Follow up: Response: No adverse reaction ea 03:36 Drug: morphine 4 mg Route: IVP; Site: right antecubital; ea 04:00 Follow up: Response: No adverse reaction; Pain is decreased ea Disposition: 07:44 Co-signature as Attending Physician, Derek Gunter MD I agree with the assessment and denise plan of care. Disposition: 05/20/18 05:36 Discharged to Home. Impression: Chest pain on breathing. - Condition is Stable. - Discharge Instructions: Chest Wall Pain, [id number], Chest Wall Pain, Costochondritis, Costochondritis, [id number]-[id number], Nonspecific Chest Pain, [id number]. - Prescriptions for Tylenol- Codeine #3 300-30 mg Oral Tablet - take 1 tablet by ORAL route every 6 hours As needed; 15 tablet. Diclofenac Sodium 75 mg Oral Tablet, Delayed Release (E.C.) - take 1 tablet by ORAL route 2 times per day As needed; 30 tablet. - Medication Reconciliation Form, Thank You Letter, Antibiotic Education, Prescription Opioid Use, Work release form form. - Follow up: Emergency Department; When: As needed; Reason: Worsening of condition. Follow up: Private Physician; When: 2 - 3 days; Reason: Recheck today's complaints, Continuance of care, Re-evaluation by your physician. - Problem is new. - Symptoms have improved. Signatures: Dispatcher [employer] EDMS Hodan Jones, JAN SUAREZ-Derek De Leon MD MD cha Antunez, Elena, RN RN ea Corrections: (The following items were deleted from the chart) 02:26 02:25 NS 0.9% 1000 ml IV at 1000 ml once ordered. kb kb 02:27 02:26 05/20/2018 02:26 Discharged to Home. Impression: Chest pain on breathing - chest kb wall pain. Condition is Stable. Forms are Medication Reconciliation Form, Thank You Letter, Antibiotic Education, Prescription Opioid Use. Follow up: Emergency Department; When: As needed; Reason: Worsening of condition. Follow up: Private Physician; When: 2 - 3 days; Reason: Recheck today's complaints, Continuance of care, Re-evaluation by your physician. kb 02:28 02:27 05/20/2018 02:26 Discharged to Home. Impression: Chest pain on breathing - .. kb Condition is Stable. Discharge Instructions: Chest Wall Pain, [id number], Pleurisy, [id number]. Prescriptions for Tylenol-Codeine #3 300-30 mg Oral Tablet - take 1 tablet by ORAL route every 6 hours As needed; 15 tablet, Diclofenac Sodium 75 mg Oral Tablet, Delayed Release (E.C.) - take 1 tablet by ORAL route 2 times per day As needed; 30 tablet. and Forms are Medication Reconciliation Form, Thank You Letter, Antibiotic Education, Prescription Opioid Use. Follow up: Emergency Department; When: As needed; Reason: Worsening of condition. Follow up: Private Physician; When: 2 - 3 days; Reason: Recheck today's complaints, Continuance of care, Re-evaluation by your physician. kb 06:21 05:36 05/20/2018 05:36 Discharged to Home. Impression: Chest pain on breathing. ea Condition is Stable. Discharge Instructions: Chest Wall Pain, [id number], Chest Wall Pain, Costochondritis, Costochondritis, Lidy-ul-[id number], Nonspecific Chest Pain, [id number]. Prescriptions for Tylenol-Codeine #3 300-30 mg Oral Tablet - take 1 tablet by ORAL route every 6 hours As needed; 15 tablet, Diclofenac Sodium 75 mg Oral Tablet, Delayed Release (E.C.) - take 1 tablet by ORAL route 2 times per day As needed; 30 tablet, Tylenol-Codeine #3 300-30 mg Oral Tablet - take 1 tablet by ORAL route every 6 hours As needed; 15 tablet, Diclofenac Sodium 75 mg Oral Tablet, Delayed Release (E.C.) - take 1 tablet by ORAL route 2 times per day As needed; 30 tablet. and Forms are Medication Reconciliation Form, Thank You Letter, Antibiotic Education, Prescription Opioid Use. Follow up: Emergency Department; When: As needed; Reason: Worsening of condition. Follow up: Private Physician; When: 2 - 3 days; Reason: Recheck today's complaints, Continuance of care, Re-evaluation by your physician. Problem is new. Symptoms have improved. denise
--- NOTE | 2018-05-20 02:27 | ER ---
Nurse's Notes [facility] Name: Zakia Franks Age: 37 yrs Sex: Female : 1980 Arrival Date: 05/20/2018 Time: 01:13 Bed 14 Private MD: Diagnosis: Chest pain on breathing Presentation: 05/20 01:37 Presenting complaint: Patient states: Pt reports pain in left ribs, states this started ea a few days ago and is causing her to have chest pain. Transition of care: patient was not received from another setting of care. Onset of symptoms was May 20, 2018. Risk Assessment: Do you want to hurt yourself or someone else? Patient reports no desire to harm self or others. Initial Sepsis Screen: Does the patient meet any 2 criteria? HR > 90 bpm. Yes Does the patient have a suspected source of infection? No. Patient's initial sepsis screen is negative. Care prior to arrival: None. 01:37 Method Of Arrival: Ambulatory ea 01:37 Acuity: NILO 3 ea Triage Assessment: 01:37 General: Appears uncomfortable, Behavior is anxious. Pain: Complains of pain in left ea lateral anterior chest and left lateral posterior chest Pain radiates to chest Pain currently is 10 out of 10 on a pain scale. 01:37 Neuro: Level of Consciousness is awake, alert, obeys commands, Oriented to person, ea place, time, situation. Cardiovascular: Patient's skin is warm and dry. Respiratory: Airway is patent Respiratory effort is even, unlabored, Respiratory pattern is regular, symmetrical. GI: Abdomen is non-distended. Derm: Skin is pink, warm \T\ dry. 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 - Social history:: Smoking status: Patient/guardian denies using tobacco. - Ebola Screening: : No symptoms or risks identified at this time. Screenin:41 Abuse screen: Denies threats or abuse. Nutritional screening: No deficits noted. ea Tuberculosis screening: No symptoms or risk factors identified. Fall Risk None identified. Assessment: 01:37 Reassessment: see triage assessment. ea 02:35 Reassessment: Patient and/or family updated on plan of care and expected duration. Pain ea level reassessed. Pt resting with eyes closed, respirations even and unlabored. Chest expansions even and symmetrical. 04:22 Reassessment: Patient and/or family updated on plan of care and expected duration. Pain ea level reassessed. Patient is alert, oriented x 3, equal unlabored respirations, skin warm/dry/pink. Patient states symptoms have improved. 05:09 Reassessment: Patient and/or family updated on plan of care and expected duration. Pain ea level reassessed. Patient is alert, oriented x 3, equal unlabored respirations, skin warm/dry/pink. Returned from CT. 06:16 Reassessment: Patient and/or family updated on plan of care and expected duration. Pain ea level reassessed. Patient is alert, oriented x 3, equal unlabored respirations, skin warm/dry/pink. Discharge instructions given to patient, verbalized the understanding of instruction. Vital Signs: 01:37 BP 146 / 102; Pulse 107; Resp 20; Temp 98.2; Pulse Ox 99% ; Weight 108.86 kg; Height 5 ea ft. 7 in. (170.18 cm); Pain 10/10; 02:35 BP 102 / 57; Pulse 91; Resp 16; Pulse Ox 95% on R/A; ea 03:30 BP 108 / 78; Pulse 92; Resp 18; Pulse Ox 98% ; ea 04:00 BP 115 / 87; Pulse 92; Resp 18; Pulse Ox 97% on R/A; ea 05:50 BP 110 / 80; Pulse 88; Resp 18; Pulse Ox 98% ; ea 01:37 Body Mass Index 37.59 (108.86 kg, 170.18 cm) ea ED Course: 01:13 Patient arrived in ED. ag3 01:21 Hodan Jones FNP-C [facility]. kb 01:21 Derek Gunter MD is Attending Physician. kb 01:30 Gwendolyn Sams RN is Primary Nurse. ea 01:36 Inserted saline lock: 20 gauge in right antecubital area, using aseptic technique. ag4 Blood collected. 01:37 Patient has correct armband on for positive identification. Bed in low position. Call ea light in reach. Side rails up X2. 01:37 Patient placed in an exam room, on a stretcher, on pulse oximetry. ea 01:40 Triage completed. ea 01:48 X-ray completed. Portable x-ray completed in exam room. Patient tolerated procedure kw well. 01:49 EKG done, by ED staff, reviewed by Hodan MONTOYA. ag4 01:50 XRAY Chest (1 view) In Process Unspecified. EDMS 04:[address] via wheelchair. kw1 04:56 CT completed. Patient tolerated procedure well. Patient moved back from CT. kw1 05:02 CT Chest For PE Angio In Process Unspecified. EDMS 05:03 CT completed. Patient tolerated procedure well. Patient moved back from CT. kw1 06:17 No provider procedures requiring assistance completed. IV discontinued, intact, ea bleeding controlled, No redness/swelling at site. Pressure dressing applied. Administered Medications: 01:53 Drug: Zofran 4 mg Route: IVP; Site: right antecubital; ea 02:30 Follow up: Response: No adverse reaction; Marked relief of symptoms ea 01:55 Drug: morphine 4 mg Route: IVP; Site: right antecubital; ea 02:30 Follow up: Response: No adverse reaction; Pain is decreased ea 02:26 CANCELLED (Physician Discretion): NS 0.9% 1000 ml IV at 1000 ml once kb 03:30 Drug: TORadol 30 mg Route: IVP; Site: right antecubital; ea 05:38 Follow up: Response: No adverse reaction; Pain is decreased ea 03:35 Drug: Zofran 4 mg Route: IVP; Site: right antecubital; ea 04:00 Follow up: Response: No adverse reaction ea 03:36 Drug: morphine 4 mg Route: IVP; Site: right antecubital; ea 04:00 Follow up: Response: No adverse reaction; Pain is decreased ea Outcome: 02:26 Discharge ordered by . kb 05:36 Discharge ordered by . denise 06:18 Discharged to home ambulatory. ea 06:18 Condition: improved 06:18 Instructed on discharge instructions, follow up and referral plans. medication usage, Demonstrated understanding of instructions, follow-up care, medications, Prescriptions given X 3. 06:21 Patient left the ED. arleen Signatures: Dispatcher [employer] EDHodan Mar, JAN SUAREZ-Derek De Leon MD MD cha Whitley, Kimberlee kw Antunez, Elena, RN RN Gaby Gutierrez1 Jessica Paige3 Pa Bernal ag4
[2018-05-20] MEDS ORDERED: KETOROLAC 30 MG/ML INJ ONE (03:38)
[2018-05-20 06:26] VITALS: TEMP 98.2
[2018-05-20 06:30] VITALS: BP 115/87; O2SAT 97
--- NOTE | 2018-05-20 07:13 | EKG ---
Test Date: 2018-05-20 Test Time: 01:42:38 Photogrammetrist: AG3 MEASUREMENT RESULTS: Intervals: Rate: 100 RI: 144 QRSD: 76 QT: 358 QTc: 461 Jennings: P: 40 RI: 144 QRS: 43 T: 32 INTERPRETIVE STATEMENTS: Normal sinus rhythm Low voltage QRS Borderline ECG Compared to ECG 02/02/2018 19:34:57 Low QRS voltage now present Sinus arrhythmia no longer present Electronically Signed On 05-20-18 07:12:26 BUSINESS PROJECT ANALYST by Dakota Rossi
--- NOTE | 2018-05-20 08:24 | RAD REPORT ---
EXAM DESCRIPTION: CT - Chest For Pe Angio - 05/20/2018 7:11 am CLINICAL HISTORY: Left-sided chest pain A preliminary report was provided at the time of the study and reviewed prior to final report. COMPARISON: Chest films same date TECHNIQUE: Dynamically enhanced 3 mm thick images of the chest were obtained during administration o f approximately 150mL Isovue 370 IV contrast. Coronal and oblique MIP reconstruction images were gene rated and reviewed. Exam utilizes a protocol to evaluate the pulmonary arterial tree. All CT scans are performed using dose optimization technique as appropriate and may include automated exposure control or mA/KV adjustment according to patient size. FINDINGS: No pulmonary emboli are identified. Pulmonary arterial tree enhancement pattern was not op timal but was sufficient for pulmonary embolisms assessment. The aorta as imaged shows no acute or suspicious finding. No pericardial thickening or effusion. No infiltrate or mass in the lung parenchyma. No pleural effusion or pleural thickening. No mediastinal or hilar suspicious masses. No chest wall masses or abnormal axillary lymphadenopathy. No rib lesion or other left-sided abnormality. Limited upper abdomen imaging shows fatty infiltration. IMPRESSION: No pulmonary emboli identified. No acute chest finding noted. Fatty infiltration of a partially imaged liver.
--- NOTE | 2018-05-20 08:25 | RAD REPORT ---
EXAM DESCRIPTION: RAD - Chest Single View - 05/20/2018 1:50 am CLINICAL HISTORY: Left-sided chest pain COMPARISON: February 02, 2018 TECHNIQUE: AP portable chest image was obtained 0143 hours . FINDINGS: Lungs are clear. Heart and vasculature are normal. No measurable pleural effusion and no p neumothorax. No acute bony abnormality seen. No acute aortic findings suspected. IMPRESSION: No acute cardiopulmonary process. No significant interval change.
== END 2018-05-20 06:21 | disposition home or self-care (01) ==
LOC: ER 01:12
DX: R07.1 Chest pain on breathing (principal); I10 Essential (primary) hypertension; I50.9 Heart failure, unspecified; Z72.0 Tobacco use; Z85.89 Personal history of malignant neoplasm of other organs and systems
CPT/HCPCS: 36415; 71045; 71275; 80048; 83735; 83880; 84484; 85025; 85610; 93005; 96374; 96375; 99285; J2405; Q9967

== ENCOUNTER 2019-07-07 13:25 | Emergency (ER) | payer SELFPAY ==
[2019-07-07] MEDS ORDERED: SMZ./TMP. 800/160 MG TABLET ONE (14:38)
[2019-07-07] MEDS ORDERED: TRAMADOL HCL 50 MG TAB ONE (14:39)
--- NOTE | 2019-07-07 14:40 | ER ---
Nurse's Notes [facility] Name: Zakia Franks Age: 38 yrs Sex: Female : 1980 Arrival Date: 07/07/2019 Time: 13:46 Bed 24 Private MD: Diagnosis: Cellulitis of right axilla;Cutaneous abscess of right axilla Presentation: 07/07 13:54 Presenting complaint: Patient states: abscess X 3 under right axilla, one has been iw there for over a year and one started a week ago. Transition of care: patient was not received from another setting of care. Onset of symptoms was July 01, 2019. Risk Assessment: Do you want to hurt yourself or someone else? Patient reports no desire to harm self or others. Initial Sepsis Screen: Does the patient meet any 2 criteria? No. Patient's initial sepsis screen is negative. Does the patient have a suspected source of infection? No. Patient's initial sepsis screen is negative. Care prior to arrival: None. 13:54 Method Of Arrival: Ambulatory iw 13:54 Acuity: NILO 4 iw Triage Assessment: 14:15 General: Appears in no apparent distress. Behavior is calm, cooperative, appropriate vc for age. Pain: Complains of pain in right arm and right axilla. 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 - Coronavirus screen:: The patient has NOT traveled to [place] in the past 14 days. Proceed with normal triage process as indicated. - Social history:: Smoking status: Patient reports the use of cigarette tobacco products, smokes one pack cigarettes per day. - Ebola Screening: : Patient negative for fever greater than or equal to 101.5 degrees Fahrenheit, and additional compatible Ebola Virus Disease symptoms Patient denies exposure to infectious person Patient denies travel to an Ebola-affected area in the 21 days before illness onset No symptoms or risks identified at this time. Screenin:15 Abuse screen: Denies threats or abuse. Nutritional screening: No deficits noted. vc Tuberculosis screening: No symptoms or risk factors identified. Fall Risk None identified. Assessment: 14:20 General: Appears in no apparent distress. uncomfortable, Behavior is calm, cooperative, vc appropriate for age. Pain: Complains of pain in right arm and right axilla. Neuro: Level of Consciousness is awake, alert, obeys commands, Oriented to person, place, time, situation. Cardiovascular: Capillary refill < 3 seconds Patient's skin is warm and dry. Respiratory: Respiratory effort is even, unlabored, Respiratory pattern is regular, symmetrical. GI: No signs and/or symptoms were reported involving the gastrointestinal system. : No signs and/or symptoms were reported regarding the genitourinary system. EENT: No signs and/or symptoms were reported regarding the EENT system. Derm: Wound noted right arm and right axilla. Musculoskeletal: Circulation, motion, and sensation intact. Range of motion: intact in all extremities. Vital Signs: 13:57 BP 147 / 110; Pulse 97; Resp 16; Temp 98.2; Pulse Ox 99% on R/A; Weight 119.29 kg; iw Height 5 ft. 7 in. (170.18 cm); Pain 7/10; 14:59 BP 154 / 96; Pulse 92; Resp 17; Pulse Ox 97% on R/A; vc 13:57 Body Mass Index 41.19 (119.29 kg, 170.18 cm) iw ED Course: 13:46 Patient arrived in ED. fj1 13:55 Triage completed. iw 13:57 Arm band placed on. iw 13:59 Prasad Fulton MD is Attending Physician. kdr 14:14 Libby Sawyer, OSCAR is Primary Nurse. vc 14:15 Patient has correct armband on for positive identification. Bed in low position. Call vc light in reach. 14:59 No provider procedures requiring assistance completed. Patient did not have IV access vc during this emergency room visit. Administered Medications: 14:38 Drug: Bactrim (160 mg-800 mg (DS) 1 tablet Route: PO; vc 14:57 Follow up: Response: No adverse reaction vc 14:38 Drug: traMADol 50 mg Route: PO; vc 14:56 Follow up: Response: No adverse reaction; Pain is decreased vc Outcome: 14:39 Discharge ordered by . kdr 15:00 Discharged to home ambulatory. vc 15:00 Condition: good 15:00 Discharge instructions given to patient, Instructed on discharge instructions, follow up and referral plans. medication usage, Using warm compresses for boils. Demonstrated understanding of instructions, follow-up care, medications, Prescriptions given X 2. 15:01 Patient left the ED. Signatures: Prasad Fulton MD MD kdr Williams, Irene RN OSCAR iw Libby Sawyer RN RN vc James, Frank fj1
--- NOTE | 2019-07-07 14:40 | EDPHYS ---
Physician Documentation [facility] Name: Zakia Franks Age: 38 yrs Sex: Female : 1980 Arrival Date: 07/07/2019 Time: 13:46 Bed 24 Private MD: ED Physician Prasad Fulton HPI: 07/07 14:26 This 38 yrs old Female presents to ER via Ambulatory with complaints of Boil. kdr 14:26 The patient presents with an abscess of the right axilla, The patient presents with kdr cellulitis of the right axilla. Description: The affected area is small, irregular, erythematous, raised, swollen, tense, warm. Onset: The symptoms/episode began/occurred gradually, 1 week(s) ago. Possible cause(s): unknown, The patient has chronic and recurrent cellulitis and abscess. Associated signs and symptoms: The patient has no apparent associated signs or symptoms. Modifying factors: the symptoms are alleviated by nothing, the symptoms are aggravated by pressure, squeezing the lesion and expressing the contents. Severity of symptoms: At their worst the symptoms were mild, in the emergency department the symptoms are unchanged. The patient has experienced similar episodes in the past, multiple times, chronically. The patient has not recently seen a physician. 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 - Coronavirus screen:: The patient has NOT traveled to [place] in the past 14 days. Proceed with normal triage process as indicated. - Social history:: Smoking status: Patient reports the use of cigarette tobacco products, smokes one pack cigarettes per day. - Ebola Screening: : Patient negative for fever greater than or equal to 101.5 degrees Fahrenheit, and additional compatible Ebola Virus Disease symptoms Patient denies exposure to infectious person Patient denies travel to an Ebola-affected area in the 21 days before illness onset No symptoms or risks identified at this time. ROS: 14:26 Constitutional: Negative for fever, chills, and weight loss, Eyes: Negative for injury, kdr pain, redness, and discharge. 14:26 Skin: Positive for abscess, cellulitis. Exam: 14:26 Constitutional: This is a well developed, well nourished patient who is awake, alert, kdr and in no acute distress. 14:26 Skin: abscess, that is small, with induration, with surrounding cellulitis, that is mild, cellulitis, that is mild. Vital Signs: 13:57 BP 147 / 110; Pulse 97; Resp 16; Temp 98.2; Pulse Ox 99% on R/A; Weight 119.29 kg; iw Height 5 ft. 7 in. (170.18 cm); Pain 7/10; 14:59 BP 154 / 96; Pulse 92; Resp 17; Pulse Ox 97% on R/A; vc 13:57 Body Mass Index 41.19 (119.29 kg, 170.18 cm) iw MDM: 14:26 Data reviewed: vital signs, nurses notes. Counseling: I had a detailed discussion with kdr the patient and/or guardian regarding: the historical points, exam findings, and any diagnostic results supporting the discharge/admit diagnosis, the need for outpatient follow up. 14:39 Patient medically screened. kdr Administered Medications: 14:38 Drug: Bactrim (160 mg-800 mg (DS) 1 tablet Route: PO; vc 14:57 Follow up: Response: No adverse reaction vc 14:38 Drug: traMADol 50 mg Route: PO; vc 14:56 Follow up: Response: No adverse reaction; Pain is decreased vc Disposition: 07/07/19 14:39 Discharged to Home. Impression: Cellulitis of right axilla, Cutaneous abscess of right axilla. - Condition is Stable. - Discharge Instructions: Cellulitis, Adult, Skin Abscess, [id number]. - Prescriptions for Tramadol 50 mg Oral Tablet - take 1 tablet by ORAL route every 8 hours as needed; 12 tablet. Bactrim DS 800- 160 mg Oral Tablet - take 1 tablet by ORAL route every 12 hours for 10 days; 20 tablet. - Medication Reconciliation Form, Thank You Letter, Antibiotic Education, Prescription Opioid Use, Work release form form. - Follow up: Private Physician; When: 2 - 3 days; Reason: If symptoms return, Further diagnostic work-up, Recheck today's complaints, Continuance of care, Re-evaluation by your physician. - Problem is an acute exacerbation. - Symptoms have improved. Signatures: Prasad Fulton MD MD kdr Mary Beth Bach RN RN iw Libby Sawyer RN RN vc Corrections: (The following items were deleted from the chart) 15:01 14:39 07/07/2019 14:39 Discharged to Home. Impression: Cellulitis of right axilla; vc Cutaneous abscess of right axilla. Condition is Stable. Forms are Medication Reconciliation Form, Thank You Letter, Antibiotic Education, Prescription Opioid Use. Follow up: Private Physician; When: 2 - 3 days; Reason: If symptoms return, Further diagnostic work-up, Recheck today's complaints, Continuance of care, Re-evaluation by your physician. Problem is an acute exacerbation. Symptoms have improved. kdr
[2019-07-07 16:11] VITALS: TEMP 98.2
[2019-07-07 16:12] VITALS: BP 154/96; O2SAT 97
== END 2019-07-07 15:01 | disposition home or self-care (01) ==
LOC: ER 13:25
DX: L03.111 Cellulitis of right axilla (principal); I10 Essential (primary) hypertension; F17.210 Nicotine dependence, cigarettes, uncomplicated
CPT/HCPCS: 99283

== ENCOUNTER 2020-02-22 13:38 | Emergency (ER) | payer SELFPAY ==
--- OUTSIDE RECORDS SUMMARY | 2020-02-22 14:19 | XMS REPORT | Continuity of Care Document ---
:1980 Author Organization [facility] t Address [address] [place] [address] Care Team Providers Name Role Phone Lxey Bach DO Attending Clinician Problems This patient has no known problems. Allergies, Adverse Reactions, Alerts This patient has no known allergies or adverse reactions. Medications This patient has no known medications. Procedures This patient has no known procedures. Encounters Start End Encounter Admission Attending Care Care Encounter Source Date/Time Date/Time Type Type Clinicians Facility Department ID 2019-12-28 2019-12-28 Emergency [facility] [id number] 10:37:00 11:44:00 Loulou Garcia [id number] [place] [id number] [place] [id number] Results This patient has no known results.
--- OUTSIDE RECORDS SUMMARY | 2020-02-22 14:19 | XMS REPORT | Summary of Care ---
:1980 Author Organization [facility] - Health Address [address] [place] [id number] Care Team Providers Name Role Phone Pcp, Does Not Have A Primary Care Provider Reason for Visit Reason Comments Abscess Auth/Cert Status Reason Specialty Diagnoses / Referred By Referred To Procedures Contact Contact Emergency Medicine [facility] ergency Dept [address] [phone] Fax: Encounter Details Date Type Department Care Team Description 12/28/2019 Emergency ADC-Emergency Loulou Bach, Celluli tis of other Department DO specified site [address] (Primary Dx) [place] [address] [phone] Allergies No Known Allergiesdocumented as of this encounter (statuses as of 12/28/2019) Medications Medication Sig Dispensed Refills Start Date End Date Status LISINOPRIL-HYDROCHLORO Take by mouth. 0 Active THIAZIDE ORAL PREGABALIN (LYRICA Take by mouth. 0 Active ORAL) traMADOL 50 mg tablet Take 1 tablet by 15 tablet 0 09/13/2016 Active mouth every 6 (six) hours as needed for Pain unrelieved by non-narcotic analgesics. phenazopyridine 200 mg Take 1 tablet by 9 tablet 0 09/13/2016 Active tablet mouth 3 (three) times daily. doxycycline 100 mg Take 1 capsule 20 capsule 0 09/13/2016 Active capsule by mouth 2 (two) times daily. traMADOL (ULTRAM) 50 Take 1 tablet by 10 tablet 0 05/10/2017 Active mg tablet mouth every 6 (six) hours as needed for Pain (scale 4-6). proMETHazine 25 mg Take 1 tablet by 12 tablet 0 05/10/2017 Active tablet mouth every 6 (six) hours as needed for Nausea and Vomiting (N/V). clindamycin 300 mg Take 1 capsule 28 capsule 0 12/28/201912/11 Active capsuleIndications: by mouth 4 Cellulitis of other (four) times specified site daily for 7 days. documented as of this encounter (statuses as of 12/28/2019) Active Problems No known active problemsdocumented as of this encounter (statuses as of 12/28/2019) Social History Tobacco Use Types Packs/Day Years Used Date Current Every Day Smoker 1 21 Smokeless Tobacco: Never Used Alcohol Use Drinks/Week oz/Week Comments No Sex Assigned at Date Recorded Not on file COVID-19 Exposure Response Date Recorded In the last month, have you been in contact with No / Unsure 12/28/2019 10:45 AM CDT someone who was confirmed or suspected to have Coronavirus / COVID-19? documented as of this encounter Last Filed Vital Signs Vital Sign Reading Time Taken Comments Blood Pressure 162/99 12/28/2019 11:00 AM CDT Pulse 80 12/28/2019 11:00 AM CDT Temperature 36.7 C (98 F) 12/28/2019 10:43 AM CDT Respiratory Rate 20 12/28/2019 11:00 AM CDT Oxygen Saturation 98% 12/28/2019 11:00 AM CDT Inhaled Oxygen Concentration - - Weight 117.9 kg (260 lb) 12/28/2019 10:43 AM CDT Height - - Body Mass Index 40.72 09/13/2016 6:31 PM CDT documented in this encounter Discharge Instructions Loulou Morris DO - 12/28/2019DIAGNOSIS 1. Cellulitis NO LIFE-THREATENING FINDINGS ON TODAY'S EXAM. PROCEDURES IN THE ER TODAY: None MEDICATIONS ADMINISTERED IN THE ER TODAY: Zofran YOUR PRESCRIPTIONS AND [id number] MEDICATION RECOMMENDATIONS: Clindamycin by mouth - please complete your entire course of antibiotics. SPECIAL CARE INSTRUCTIONS: None FOLLOW-UP RECOMMENDATIONS: RECOMMEND FOLLOW-UP WITH A PRIMARY CARE PROVIDER OR SPECIALIST IN 2-5 DAYS, ESPECIALLY IF NO IMPROVEMENT IN SYMPTOMS. TO FOLLOW-UP WITHIN THE [facility], TRY THESE OPTIONS (CLINIC APPOINTMENTS AVAILABLE ON [id number] BASIS): 1. SCHEDULE AN APPOINTMENT ONLINE AT [email or web address][facility] 2. OR CALL THE [facility] AT OR 3. OR CALL YOUR [facility] PHYSICIAN'S OFFICE DIRECTLY IF YOU ARE ALREADY AN ESTABLISHED [facility] PATIENT. OR, YOU MAY FOLLOW-UP WITH A PROVIDER OF YOUR CHOICE, SUCH : 1. A PHYSICIAN OF YOUR CHOICE 2. [facility], . LOCATIONS IN [facility] 3. [facility], [address], [place]; [phone] RETURN TO ER FOR WORSENING OF SYMPTOMS. AttachmentsThe following attachments cannot be sent through Care Everywhere. Cellulitis, Discharge Instructions for (Macedonian)documented in this encounter ED Notes Destini Burkett RN - 12/28/2019 10:40 AM CDTPatient reports possible spider bite that started two weeks ago that started as a "boil" and then "popped" a week later that has been draining to the right breast. Patient reports that she gets "boils"often but that they usually heal but that this has just gotten worse. 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 States started as a boiland she popped it several days ago but it has not gone away. No fevers. No h/o DM. No meds for sx. Here for eval. Past Medical History/Immunizations: Past Medical History: Diagnosis Date CHF (congestive heart failure) Chronic back pain sees Pain Management Endometrial cancer GERD (gastroesophageal reflux disease) Hypertension Sciatica Tetanus received in last 5 years: Yes Childhood immunizations: Up-to-date Allergies: No Known Allergies Past Social History: Tobacco Use Current Every Day Smoker; Smoked an average of 1 pack/day for 21 years. Smokeless Tobacco: Never used smokeless tobacco. Alcohol Use No. Drug Use Yes; Other-see comments, Marijuana. 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 Respiratory: Negative for shortness of breath. Cardiovascular: Negative for chest pain. Gastrointestinal: Negative for abdominal pain and vomiting. Genitourinary: Negative for dysuria. Musculoskeletal: Negative for arthralgias, neck pain and neck stiffness. Skin: Positive for wound. Neurological: Negative for dizziness. Hematological: Negative for adenopathy. Endocrine: Negative for goiter. Physical Exam: ED Triage Vitals [12/28/19 1043] Weight 117.9 kg (260 lb) Actual or estimated Estimated by patient/family report Height BP (!) 155/113 Pulse 88 Resp 20 Temp 36.7 C (98 F) Temp source Oral SpO2 98 % Measured on Room air Physical Exam Vitals signs and nursing note reviewed. Constitutional: Appearance: Normal appearance. She is obese. HENT: Head: Normocephalic and atraumatic. Neck: Musculoskeletal: Normal range of motion. Cardiovascular: Rate and Rhythm: Normal rate. Pulmonary: Effort: Pulmonary effort is normal. No respiratory distress. Chest: Neurological: General: No focal deficit present. Mental Status: She is alert. Radiology: No results found for this visit on 12/28/19. Lab Results (24h): No results found for this or any previous visit (from the past 24 hour(s)). Orders and Treatments: No orders of the defined types were placed in this encounter. Orders Placed This Encounter Medications ondansetron (ZOFRAN-ODT) disintegrating tablet 4 mg ED COURSE patient presents for eval for wound to right breast x 2 weeks. States started as a boil and she popped it but it has not gone away. No h/o DM. No fevers. No meds for sx. VSS here in the EC. Has wound as above. No concern for abscess. Likely with cellulitis s/p self-popping of wound that is remaining warm and moist under her bra. Will give antibiotics. Stable here in the EC and is ok for discharge home with PCP f/u. MDM: Coding Diagnosis/Impression: No diagnosis found. Disposition/Condition: ED Disposition None Discharge Medications: Patient's Medications START taking these medications No medications on file CONTINUE taking these medications which have NOT CHANGED DOXYCYCLINE 100 MG CAPSULE Take 1 capsule by mouth 2 (two) times daily. LISINOPRIL-HYDROCHLOROTHIAZIDE ORAL Take by mouth. PHENAZOPYRIDINE 200 MG TABLET Take 1 tablet by mouth 3 (three) times daily. PREGABALIN (LYRICA ORAL) Take by mouth. PROMETHAZINE 25 MG TABLET Take 1 tablet by mouth every 6 (six) hours as needed for Nausea and Vomiting (N/V). TRAMADOL (ULTRAM) 50 MG TABLET Take 1 tablet by mouth every 6 (six) hours as needed for Pain (scale 4-6). TRAMADOL 50 MG TABLET Take 1 tablet by mouth every 6 (six) hours as needed for Pain unrelieved by non-narcotic analgesics. START taking Modified Medications as Prescribed No medications on file STOP taking these medications No medications on file Follow-up: Electronically signed by: Loulou Bach DO 12/28/2019 10:50 AM documented in this encounter Miscellaneous Notes ED Nurse Note - Destini Burkett RN - 12/28/2019 11:43 AM CDTPt given printed and verbal discharge instructions regarding cellulitis Prescriptions provided clindamycin Discussed antibiotic therapy and to take until all completed unless adverse reaction occurs - if occurs, discontinue medication and follow up with pcp/seek medical attention Pt verbalized understanding of instructions, pt awake alert oriented, resp reg unlabored, skin w/d, color appropriate for race, moves all ext well,pt encouraged to follow up with pcp Advised to seek medical attention for new/prolonged/worsening of symptoms, No adverse reaction to meds given in ER noted upon discharge Awake, alert oriented, resp reg unlabored, skin w/d, pt leaving amb with steady gait, in no apparent distress, documented in this encounter Plan of Treatment Health Maintenance Due Date Last Done Comments Depression Screening 1990 DTaP,Tdap,and Td Vaccines (1 - 1997 Tdap) PAP SMEAR 07/18/1999 Breast Cancer Screening 2018 (MAMMOGRAM) INFLUENZA VACCINE (#1) 2020 PNEUMOCOCCAL 0-64 YEARS COMBINED Aged Out No longer eligible based on SERIES patient's age to complete this topic documented as of this encounter Procedures Procedure Name Priority Date/Time Associated Diagnosis Comme nts NOTICE OF PRIVACY Routine 12/28/2019 10:34 AM CDT PRACTICES CONSENT/REFUSAL FOR Routine 12/28/2019 10:33 AM CDT DIAGNOSIS AND TREATMENT documented in this encounter Results Not on filedocumented in this encounter Visit Diagnoses Diagnosis Cellulitis of other specified site - Mahnaz alyson documented in this encounter Administered Medications Medication Order MAR Action Action Date Dose Rate Site gabapentin (NEURONTIN) tablet 600 Given 12/28/2019 11:33 AM CDT 600 mg mg 600 mg, Oral, ONCE, 1 dose, 12/28/19 at 1245, Routine ondansetron (ZOFRAN-ODT) disintegrating tablet Given 0 12/28/2019 10:54 AM CDT 4 mg 4 mg 4 mg, Oral, ONCE, 1 dose, Fri12/28/19 at 1200, Routine documented in this encounter
[2020-02-22 15:26] LABS: Absolute Lymphocytes (CBC) 2.4 K/uL (0.7-4.9); Hematocrit 33.5 % (36.0-45.0); Lymphocytes % 45.3 % (15.3-44.8); Urine Blood 2+ (NEG); Urine Glucose NEGATIVE (NEG); Urine Protein NEGATIVE (NEG); Urine Specific Gravity 1.015 (1.005-1.030); Urine pH 6.5 (5.0-7.0)
[2020-02-22 15:41] LABS: Albumin 3.1 g/dL (3.4-5.0); Bilirubin Total 0.2 mg/dL (0.2-1.0); Potassium 3.3 mmol/L (3.5-5.1); Protein, Total 6.9 g/dL (6.4-8.2)
--- NOTE | 2020-02-22 15:56 | EDPHYS ---
Physician Documentation [facility] Name: Zakia Franks Age: 39 yrs Sex: Female : 1980 Arrival Date: 02/22/2020 Time: 13:41 Bed 5 Private MD: ED Physician Balwinder Emery HPI: 02/21 14:55 This 39 yrs old Female presents to ER via Ambulatory with complaints of pm1 Numbness in Hands, Leg/Foot Swelling and Pain. 14:55 Patient with complaints of increased bilateral pedal edema for the past few weeks. pm1 Patient without any chest pain, shortness of breath, dysuria. 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 She has not been taking her medications regularly and has not had regular sleep. Patient normally takes hctz. Patient reports swelling to both hands which causes some numbness that has resolved. Patient was concerned that she might have rheumatoid arthritis and was hoping to be tested for it today. Patient with a history of chronic pain and takes Suboxone and gabapentin. 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 - Social history:: Smoking status: Patient reports the use of cigarette tobacco products, smokes one pack cigarettes per day. ROS: 14:55 Constitutional: Negative for fever, chills, and weight loss, Eyes: Negative for injury, pm1 pain, redness, and discharge, ENT: Negative for injury, pain, and discharge, Neck: Negative for injury, pain, and swelling. 14:55 Respiratory: Negative for shortness of breath, cough, wheezing, and pleuritic chest pain. 14:55 Skin: Negative for injury, rash, and discoloration. 14:55 Cardiovascular: Positive for edema, Negative for chest pain, orthopnea, palpitations. 14:55 MS/extremity: Positive for pain, of the below knees of right leg and left leg, numbness to bilateral hands when they have some swelling. 14:55 Neuro: Negative for dizziness, headache, tingling, weakness. Exam: 14:55 Constitutional: This is a well developed, well nourished patient who is awake, alert, pm1 and in no acute distress. Head/Face: Normocephalic, atraumatic. 14:55 Back: No spinal tenderness. No costovertebral tenderness. Full range of motion. Skin: Warm, dry with normal turgor. Normal color with no rashes, no lesions, and no evidence of cellulitis. MS/ Extremity: Pulses equal, no cyanosis. Neurovascular intact. Full, normal range of motion. 14:55 Cardiovascular: Exam negative for acute changes, Rate: normal, Rhythm: regular, Pulses: no pulse deficits are appreciated, Edema: pedal edema, that is mild. 14:55 Respiratory: Exam negative for acute changes, respiratory distress, shortness of breath. 14:55 Neuro: Exam negative for acute changes, Orientation: is normal, Mentation: is normal, Motor: is normal, moves all fours, Sensation: is normal, no obvious gross deficits. Vital Signs: 14:01 BP 123 / 86; Pulse 85; Resp 19 S; Temp 98.1(O); Pulse Ox 96% on R/A; Weight 118.39 kg jd3 (R); Height 5 ft. 7 in. (170.18 cm) (R); Pain 6/10; 15:29 BP 104 / 65; Pulse 76; Resp 18 S; Pulse Ox 98% on R/A; Pain 8/10; aa5 14:01 Body Mass Index 40.88 (118.39 kg, 170.18 cm) jd3 MDM: 14:46 Patient medically screened. pm1 15:46 Data reviewed: vital signs. Data interpreted: Pulse oximetry: on room air is 98 %. pm1 Interpretation: normal. Counseling: I had a detailed discussion with the patient and/or guardian regarding: the historical points, exam findings, and any diagnostic results supporting the discharge/admit diagnosis, lab results, the need for outpatient follow up, to return to the emergency department if symptoms worsen or persist or if there are any questions or concerns that arise at home. 15:56 ED course: patient reports no improvement in pain. Would like additional pain pm1 medication prior to leaving. 02/21 14:54 Order name: CBC with Diff; Complete Time: 15:38 pm1 02/21 14:54 Order name: CMP; Complete Time: 15:45 pm1 02/21 15:17 Order name: Urine Dipstick--Ancillary (enter results); Complete Time: 15:38 mt 02/21 15:17 Order name: Urine --Ancillary (enter results); Complete Time: 15:38 mt 02/21 14:54 Order name: IV Saline Lock; Complete Time: 15:19 pm1 02/21 14:54 Order name: Urine Dipstick-Ancillary (obtain specimen); Complete Time: 15:17 pm1 02/21 14:54 Order name: Urine Test (obtain specimen); Complete Time: 15:17 pm1 Administered Medications: 15:24 Drug: morphine 4 mg Route: IVP; Site: right antecubital; aa5 15:24 Drug: Zofran (Ondansetron) 4 mg Route: IVP; Site: right antecubital; aa5 16:15 Drug: morphine 4 mg Route: IVP; Site: right antecubital; iw Disposition: 18:29 Co-signature as Attending Physician, Balwinder Emery MD. rn Disposition: 02/22/20 15:55 Discharged to Home. Impression: Edema, unspecified - bilateral pedal edema, Other chronic pain. - Condition is Stable. - Discharge Instructions: Chronic Pain, Peripheral Edema. - Work release form, Medication Reconciliation Form, Thank You Letter, Antibiotic Education, Prescription Opioid Use form. - Follow up: Emergency Department; When: As needed; Reason: Worsening of condition. Follow up: Private Physician; When: 2 - 3 days; Reason: Recheck today's complaints, Continuance of care, Re-evaluation by your physician. - Problem is chronic. - Symptoms have improved. Signatures: Dispatcher [employer] Mary Beth Bosch RN Balwinder Porras MD MD rn Calderon, Audri, RN RN aa5 Kamlesh Lewis, DAILY RELEASE AND DUPE PRINTER DAILY RELEASE AND DUPE PRINTER pm1 Olvin Blackwell RN RN jd3 Corrections: (The following items were deleted from the chart) 16:33 15:55 02/22/2020 15:55 Discharged to Home. Impression: Edema, unspecified - bilateral iw pedal edema; Other chronic pain. Condition is Stable. Forms are Medication Reconciliation Form, Thank You Letter, Antibiotic Education, Prescription Opioid Use. Follow up: Emergency Department; When: As needed; Reason: Worsening of condition. Follow up: Private Physician; When: 2 - 3 days; Reason: Recheck today's complaints, Continuance of care, Re-evaluation by your physician. Problem is chronic. Symptoms have improved. pm1
--- NOTE | 2020-02-22 15:56 | ER ---
Nurse's Notes [facility] Name: Zakia Franks Age: 39 yrs Sex: Female : 1980 Arrival Date: 02/22/2020 Time: 13:41 Bed 5 Private MD: Diagnosis: Edema, unspecified-bilateral pedal edema;Other chronic pain Presentation: 02/21 13:58 Chief complaint: Patient states: "I feel like every joint is hurting me today. My feet jd3 are swelling, my legs are swelling, I just hurt all over. both my hands swell and go numb and I am just tired of the pain.". Coronavirus screen: At this time, the client does not indicate any symptoms associated with coronavirus-19. Ebola Screen: Patient negative for fever greater than or equal to 101.5 degrees Fahrenheit, and additional compatible Ebola Virus Disease symptoms. Initial Sepsis Screen: Does the patient meet any 2 criteria? No. Patient's initial sepsis screen is negative. Does the patient have a suspected source of infection? No. Patient's initial sepsis screen is negative. Risk Assessment: Do you want to hurt yourself or someone else? Patient reports no desire to harm self or others. Onset of symptoms was February 19, 2020. 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 - Social history:: Smoking status: Patient reports the use of cigarette tobacco products, smokes one pack cigarettes per day. Screenin:33 Abuse screen: Denies threats or abuse. Denies injuries from another. Nutritional iw screening: No deficits noted. Tuberculosis screening: No symptoms or risk factors identified. Fall Risk None identified. Assessment: 15:10 General: Appears uncomfortable, Behavior is calm, cooperative. Pain: Complains of pain aa5 in "all joints", hubert hands, and hubert legs. Pain does not radiate. Pain currently is 8 out of 10 on a pain scale. Quality of pain is described as aching, pressure, tender, throbbing, Is continuous. Neuro: Level of Consciousness is awake, alert, obeys commands, Oriented to person, place, time, situation. Cardiovascular: Heart tones S1 S2 present Edema noted to hubert lower extremities. Pt reports intermittent numbness to hubert hands and intermittent swelling to hubert hands. Rhythm is regular. Respiratory: Airway is patent Respiratory effort is even, unlabored, Respiratory pattern is regular, symmetrical. GI: Abdomen is round. : No signs and/or symptoms were reported regarding the genitourinary system. EENT: No signs and/or symptoms were reported regarding the EENT system. Derm: Skin is pink, warm \\T\\ dry. Musculoskeletal: Range of motion: intact in all extremities. 15:22 Reassessment: Pt reports she started taking Suboxone approximately 1 month ago, aa5 provider notified. . 16:32 Reassessment: Patient appears in no apparent distress at this time. Patient and/or iw family updated on plan of care and expected duration. Pain level reassessed. Patient is alert, oriented x 3, equal unlabored respirations, skin warm/dry/pink. Vital Signs: 14:01 BP 123 / 86; Pulse 85; Resp 19 S; Temp 98.1(O); Pulse Ox 96% on R/A; Weight 118.39 kg jd3 (R); Height 5 ft. 7 in. (170.18 cm) (R); Pain 6/10; 15:29 BP 104 / 65; Pulse 76; Resp 18 S; Pulse Ox 98% on R/A; Pain 8/10; aa5 14:01 Body Mass Index 40.88 (118.39 kg, 170.18 cm) jd3 ED Course: 13:41 Patient arrived in ED. ds1 13:59 Triage completed. jd3 14:01 Arm band placed on. jd3 14:32 Kamlesh Lewis NP is PHCP. pm1 14:32 Balwinder Emery MD is Attending Physician. pm1 15:10 Patient has correct armband on for positive identification. Bed in low position. Call aa5 light in reach. Side rails up X2. Pulse ox on. NIBP on. 15:11 Opal Lacy, OSCAR is Primary Nurse. aa5 15:15 Initial lab(s) drawn, by me, sent to lab. Inserted saline lock: 20 gauge in right aa5 antecubital area, using aseptic technique. Blood collected. 16:32 No provider procedures requiring assistance completed. IV discontinued, intact, iw bleeding controlled, No redness/swelling at site. Pressure dressing applied. Administered Medications: 15:24 Drug: morphine 4 mg Route: IVP; Site: right antecubital; aa5 15:24 Drug: Zofran (Ondansetron) 4 mg Route: IVP; Site: right antecubital; aa5 16:15 Drug: morphine 4 mg Route: IVP; Site: right antecubital; iw Outcome: 15:55 Discharge ordered by MD. pm1 16:33 Discharged to home ambulatory. iw 16:33 Condition: good 16:33 Discharge instructions given to patient, Instructed on discharge instructions, follow up and referral plans. Demonstrated understanding of instructions, follow-up care. 16:33 Patient left the ED. iw Signatures: Ani August ds1 Mary Beth Bach RN RN Opal Lacy RN RN aa5 Kamlesh Lewis NP TELECOMMUNICATIONS EQUIPMENT INSTALLER pm1 Olvin Blackwell RN RN jd3 Corrections: (The following items were deleted from the chart) 14:00 13:58 Onset of symptoms was February 22, 2020 j j 14:04 13:58 Chief complaint: Patient states: "I feel like every joint is hurting me today. My jd3 feet are swelling, my legs are swelling, I just hurt all over." jd3 14:04 14:01 Pulse 85bpm; Resp 19bpm; Spontaneous; Pulse Ox 96% RA; Temp 98.1F Oral; 118.39 kg jd3 Reported; Height 5 ft. 7 in. Reported; BMI: 40.8; Pain 6/10; jd3
[2020-02-22] MEDS ORDERED: MORPHINE 4 MG/ML SYR ONE (16:27)
[2020-02-22 16:39] VITALS: TEMP 98.1
[2020-02-22 16:49] VITALS: BP 104/65; O2SAT 98
== END 2020-02-22 16:33 | disposition home or self-care (01) ==
LOC: EEVIPCON 13:38 → ER 13:38
DX: G89.29 Other chronic pain (principal); I10 Essential (primary) hypertension; F17.210 Nicotine dependence, cigarettes, uncomplicated; Z85.89 Personal history of malignant neoplasm of other organs and systems
CPT/HCPCS: 36415; 80053; 81003; 81025; 85025; 96374; 96375; 99284

== ENCOUNTER 2020-08-26 14:09 | Emergency (ER) | payer SELFPAY ==
--- OUTSIDE RECORDS SUMMARY | 2020-08-26 14:12 | XMS REPORT | Continuity of Care Document ---
:1980 Author Organization [facility] t Address [address] [place] [address] Care Team Providers Name Role Phone Lexy Bach DO Attending Clinician Doctor Unassigned, Name Attending Clinician Unavailable Problems This patient has no known problems. Allergies, Adverse Reactions, Alerts This patient has no known allergies or adverse reactions. Medications This patient has no known medications. Procedures This patient has no known procedures. Encounters Start End Encounter Admission Attending Care Care Encounter Source Date/Time Date/Time Type Type Clinicians Facility Department ID 2020-03-03 2020-03-03 Emergency Isreal [facility] [id number] 14:42:00 18:14:00 Loulou Garcia [id number] [place] [id number] [place] [address] [id number] 2020-03-03 2020-03-03 Orders Doctor MCGUIRE [id number] 00:00:00 00:00:00 Only Unassigned, ESTEVAN [id number] [place] [facility] [id number] 2019-12-28 2019-12-28 Emergency Isreal [facility] [id number] 10:37:00 11:44:00 Loulou Garcia [id number] [place] [id number] [place] [address] [id number] Results This patient has no known results.
[2020-08-26] MEDS ORDERED: NA CHLORIDE 0.9% 500 ML ONE (15:37)
[2020-08-26] MEDS ORDERED: NA CHLORIDE 0.9% 1,000 ML ONE (15:38)
[2020-08-26 15:41] LABS: Absolute Lymphocytes (CBC) 1.7 K/uL (0.7-4.9); Basophils % 1.1 % (0-1.3); Hematocrit 39.7 % (36.0-45.0); MPV 10.4 fL (7.6-11.3); RBC Red Blood Cell Count 4.47 M/uL (3.86-4.86)
[2020-08-26 15:42] LABS: Protime INR 1.05
[2020-08-26 15:47] LABS: ALT/SGPT 89 U/L (12-78); AST/SGOT 151 U/L (15-37); Albumin 3.4 g/dL (3.4-5.0); Alkaline Phosphatase 103 U/L (45-117); BUN Blood Urea Nitrogen 18 mg/dL (7-18); Bicarbonate 25 mmol/L (21-32); Bilirubin Direct 0.1 mg/dL (0-0.2); Bilirubin Total 0.4 mg/dL (0.2-1.0); Lipase 213 U/L (73-393); NT PRO-BNP 15 pg/mL (<125); Potassium 3.9 mmol/L (3.5-5.1); Protein, Total 8.4 g/dL (6.4-8.2); Sodium Level 130 mmol/L (136-145); Troponin (Emerg Dept Use Only) < 0.02 ng/mL (0.0-0.045)
[2020-08-26 15:49] LABS: Glucose Level 466 mg/dL (74-106)
--- NOTE | 2020-08-26 15:55 | ER ---
Nurse's Notes [facility] Name: Zakia Franks Age: 40 yrs Sex: Female : 1980 Arrival Date: 08/26/2020 Time: 14:10 Bed 24 Private MD: Diagnosis: Type 2 diabetes mellitus;Type 2 diabetes mellitus with hyperglycemia;Obesity, unspecified;Tobacco abuse counseling;Tobacco use Presentation: 08/26 14:27 Chief complaint: Patient states: BP was 202/149 around 6620-3536. BGL was 590 around ca1 the same time. Reports blurring vision started 3 - 4 days DIRECTOR INDEPENDENT. Chest pain, off and on for a while now but hurt real bad this morning. And every time I do BM, it's with blood, I got hemorrhoids so I don't know. 14:27 Method Of Arrival: Ambulatory ca1 14:31 Coronavirus screen: Client denies travel out of the [place] in the last 14 days. At this ca1 time, the client does not indicate any symptoms associated with coronavirus-19. Ebola Screen: Patient negative for fever greater than or equal to 101.5 degrees Fahrenheit, and additional compatible Ebola Virus Disease symptoms Patient denies exposure to infectious person. Patient denies travel to an Ebola-affected area in the 21 days before illness onset. No symptoms or risks identified at this time. Initial Sepsis Screen: Does the patient meet any 2 criteria? No. Patient's initial sepsis screen is negative. Does the patient have a suspected source of infection? No. Patient's initial sepsis screen is negative. Risk Assessment: Do you want to hurt yourself or someone else? Patient reports no desire to harm self or others. Onset of symptoms was August 26, 2020. 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 - Social history:: Smoking status: Patient reports the use of cigarette tobacco products, smokes two packs cigarettes per day. - Family history:: not pertinent. Screenin:47 Abuse screen: Denies threats or abuse. Denies injuries from another. Nutritional zb screening: No deficits noted. Tuberculosis screening: No symptoms or risk factors identified. Fall Risk None identified. Assessment: 14:30 Reassessment: notified ecp of pt blood sugar level. zb 15:00 General: Appears in no apparent distress. uncomfortable, Behavior is calm, cooperative, zb appropriate for age, Reports feeling ill for 2-3 days, fatigue for 2-3 days. Pain: Complains of pain in chest and abdomen Pain does not radiate. Quality of pain is described as sharp, Pain began 2-3 days ago. Also complains of constipation. Neuro: Level of Consciousness is awake, alert, obeys commands, Oriented to person, place, time, situation. Cardiovascular: Capillary refill < 3 seconds Patient's skin is warm and dry. Respiratory: Reports pain with cough Airway is patent Respiratory effort is even, unlabored, Respiratory pattern is regular, symmetrical. GI: Abdomen is round obese, Reports lower abdominal pain, upper abdominal pain, constipation, rectal bleeding. : Reports urgency, urinary frequency. Derm: Skin is intact, is healthy with good turgor, Skin is dry, Skin is normal, Skin temperature is warm. Musculoskeletal: Range of motion: intact in all extremities. 15:57 Reassessment: Patient appears in no apparent distress at this time. Patient and/or zb family updated on plan of care and expected duration. Pain level reassessed. Patient is alert, oriented x 3, equal unlabored respirations, skin warm/dry/pink. patient ambulated to restroom. urine sample given. 16:30 Reassessment: Patient appears in no apparent distress at this time. Patient and/or zb family updated on plan of care and expected duration. Pain level reassessed. Patient is alert, oriented x 3, equal unlabored respirations, skin warm/dry/pink. patient given ice chips. 17:11 Reassessment: Patient appears in no apparent distress at this time. Patient and/or zb family updated on plan of care and expected duration. Pain level reassessed. Patient is alert, oriented x 3, equal unlabored respirations, skin warm/dry/pink. IV fluid completed notified ECP of blood sugars. 293 BGL. Vital Signs: 14:31 BP 116 / 85; Pulse 92; Resp 16 S; Temp 96.4(TE); Pulse Ox 98% on R/A; Weight 124.74 kg ca1 (R); Height 5 ft. 7 in. (170.18 cm) (R); Pain 6/10; 15:00 BP 107 / 69; Pulse 96; Resp 16; Pulse Ox 96% on R/A; zb 16:02 BP 110 / 77; Pulse 84; Resp 18; Pulse Ox 97% on R/A; zb 17:12 BP 116 / 77; Pulse 73; Resp 16; Pulse Ox 95% on R/A; zb 14:31 Body Mass Index 43.07 (124.74 kg, 170.18 cm) ca1 ED Course: 14:10 Patient arrived in ED. as 14:32 Triage completed. ca1 14:32 Arm band placed on right wrist. ca1 14:38 Derek Gunter MD is Attending Physician. denise 14:53 Billie Stone, OSCAR is Primary Nurse. zb 14:55 EKG done, by ED staff, reviewed by Derek Gunter MD. zb 15:00 Inserted saline lock: 20 gauge in right antecubital area, using aseptic technique. zb Blood collected. 15:11 XRAY Chest (1 view) In Process Unspecified. EDMS 15:36 CT Abd/Pelvis - IV Contrast Only In Process Unspecified. EDMS 15:52 Claire Chamberlain MD is Referral Physician. denise 15:58 Patient has correct armband on for positive identification. Placed in gown. Bed in low zb position. Call light in reach. desk monitor on. Pulse ox on. NIBP on. Door closed. Noise minimized. 17:13 No provider procedures requiring assistance completed. IV discontinued, intact, zb bleeding controlled, No redness/swelling at site. Pressure dressing applied. Administered Medications: 15:29 Drug: NS 0.9% 500 ml Route: IV; Rate: bolus; Site: right antecubital; zb 17:10 Follow up: Response: No adverse reaction; Marked relief of symptoms; IV Status: zb Completed infusion; IV Intake: 500ml 15:30 Drug: NS 0.9% 1000 ml Route: IV; Rate: 125 ml/hr; Site: right antecubital; zb 17:10 Follow up: Response: No adverse reaction; Marked relief of symptoms; IV Status: zb Completed infusion; IV Intake: 125ml 16:13 Drug: NS 0.9% 1000 ml Route: IV; Rate: 1 bolus; Site: left antecubital; zb 17:09 Follow up: Response: No adverse reaction; Marked relief of symptoms; IV Status: zb Completed infusion; IV Intake: 1000ml 16:30 Drug: Insulin Regular Human 10 units {Co-Signature: [email or web address] (Alexis Damian RN).} Route: IVP; aa5 Site: right antecubital; 17:09 Follow up: Response: No adverse reaction; Marked relief of symptoms; Blood sugar is zb lowered 16:30 Drug: Insulin Regular Human 10 units {Co-Signature: [email or web address] (Alexis Damian RN).} Route: aa5 Sub-Q; Site: left lower abdomen; 17:09 Follow up: Response: No adverse reaction; No change in condition; Blood pressure is zb elevated 16:30 Drug: Pepcid (famotidine) 20 mg Route: IVP; Site: right antecubital; aa5 17:09 Follow up: Response: No adverse reaction; Marked relief of symptoms zb Intake: 17:09 IV: 1000ml; Total: 1000ml. zb 17:10 IV: 500ml; Total: 1500ml. zb 17:10 IV: 125ml; Total: 1625ml. zb Outcome: 15:54 Discharge ordered by . denise 17:13 Discharged to home ambulatory. zb 17:13 Condition: stable 17:13 Discharge instructions given to patient, family, Instructed on discharge instructions, follow up and referral plans. medication usage, Demonstrated understanding of instructions, follow-up care, medications, Prescriptions given X 2. 17:22 Patient left the ED. zb Signatures: Dispatcher [employer] Derek Palmer MD MD cha Martinez, Amelia as Calderon, Audri RN RN aa5 Brooke Pepper RN RN ca1 Brown, Zipporah, RN RN zeamon Damian RN jl7
--- NOTE | 2020-08-26 15:55 | EDPHYS ---
Physician Documentation [facility] Name: Zakia Franks Age: 40 yrs Sex: Female : 1980 Arrival Date: 08/26/2020 Time: 14:10 Bed 24 Private MD: [place] Physician Derek Gunter HPI: 08/26 15:20 This 40 yrs old Female presents to ER via Ambulatory with complaints of denise Blurred Vision. 15:20 The patient presents with abdominal pain in the epigastric area, in the upper abdomen, denise abdominal distention in the upper abdomen, in the lower abdomen. Onset: The symptoms/episode began/occurred 2 day(s) ago. The patient or guardian reports hyperglycemia, that was potentially precipitated by no particular event. Onset: The symptoms/episode began/occurred at an unknown time. Associated signs and symptoms: Pertinent positives: polydipsia, polyphagia. The symptoms do not radiate. Associated signs and symptoms: Pertinent positives: nausea. Modifying factors: The symptoms are alleviated by nothing, the symptoms are aggravated by nothing. 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 - Social history:: Smoking status: Patient reports the use of cigarette tobacco products, smokes two packs cigarettes per day. - Family history:: not pertinent. ROS: 15:20 Constitutional: Negative for fever, chills, and weight loss, ENT: Negative for injury, denise pain, and discharge, Neck: Negative for injury, pain, and swelling, Cardiovascular: Negative for chest pain, palpitations, and edema, Respiratory: Negative for shortness of breath, cough, wheezing, and pleuritic chest pain, Abdomen/GI: Negative for abdominal pain, nausea, vomiting, diarrhea, and constipation, Back: Negative for injury and pain, : Negative for injury, bleeding, discharge, and swelling, MS/Extremity: Negative for injury and deformity, Skin: Negative for injury, rash, and discoloration, Neuro: Negative for headache, weakness, numbness, tingling, and seizure, Psych: Negative for depression, anxiety, suicide ideation, homicidal ideation, and hallucinations, Allergy/Immunology: Negative for hives, rash, and allergies, Endocrine: Negative for neck swelling, polydipsia, polyuria, polyphagia, and marked weight changes, Hematologic/Lymphatic: Negative for swollen nodes, abnormal bleeding, and unusual bruising. 15:20 Eyes: Positive for blurry vision. Exam: 15:23 Constitutional: This is a well developed, well nourished patient who is awake, alert, denise and in no acute distress. Head/Face: Normocephalic, atraumatic. Eyes: Pupils equal round and reactive to light, extra-ocular motions intact. Lids and lashes normal. Conjunctiva and sclera are non-icteric and not injected. Cornea within normal limits. Periorbital areas with no swelling, redness, or edema. ENT: Nares patent. No nasal discharge, no septal abnormalities noted. Tympanic membranes are normal and external auditory canals are clear. Oropharynx with no redness, swelling, or masses, exudates, or evidence of obstruction, uvula midline. Mucous membranes moist. Neck: Trachea midline, no thyromegaly or masses palpated, and no cervical lymphadenopathy. Supple, full range of motion without nuchal rigidity, or vertebral point tenderness. No Meningismus. Chest/axilla: Normal chest wall appearance and motion. Nontender with no deformity. No lesions are appreciated. Cardiovascular: Regular rate and rhythm with a normal S1 and S2. No gallops, murmurs, or rubs. Normal PMI, no JVD. No pulse deficits. Respiratory: Lungs have equal breath sounds bilaterally, clear to auscultation and percussion. No rales, rhonchi or wheezes noted. No increased work of breathing, no retractions or nasal flaring. Abdomen/GI: Soft, non-tender, with normal bowel sounds. No distension or tympany. No guarding or rebound. No evidence of tenderness throughout. Back: No spinal tenderness. No costovertebral tenderness. Full range of motion. Skin: Warm, dry with normal turgor. Normal color with no rashes, no lesions, and no evidence of cellulitis. MS/ Extremity: Pulses equal, no cyanosis. Neurovascular intact. Full, normal range of motion. Neuro: Awake and alert, GCS 15, oriented to person, place, time, and situation. Cranial nerves II-XII grossly intact. Motor strength 5/5 in all extremities. Sensory grossly intact. Cerebellar exam normal. Normal gait. Psych: Awake, alert, with orientation to person, place and time. Behavior, mood, and affect are within normal limits. 15:23 Abdomen/GI: Rectal exam: is unremarkable, rectal tone normal, Stool: normal, guaiac negative, hemorrhoid(s), are not appreciated, mass, is not appreciated, swelling, is not appreciated, tenderness, is not appreciated, Liver: no appreciated palpable abnormalities, Hernia: noted in the umbilical area. 15:59 ECG was reviewed by the Attending Physician. [facility] Vital Signs: 14:31 BP 116 / 85; Pulse 92; Resp 16 S; Temp 96.4(TE); Pulse Ox 98% on R/A; Weight 124.74 kg ca1 (R); Height 5 ft. 7 in. (170.18 cm) (R); Pain 6/10; 15:00 BP 107 / 69; Pulse 96; Resp 16; Pulse Ox 96% on R/A; zb 16:02 BP 110 / 77; Pulse 84; Resp 18; Pulse Ox 97% on R/A; zb 17:12 BP 116 / 77; Pulse 73; Resp 16; Pulse Ox 95% on R/A; zb 14:31 Body Mass Index 43.07 (124.74 kg, 170.18 cm) ca1 MDM: 14:38 Patient medically screened. denise 15:24 Differential diagnosis: hyperglycemia, bowel obstruction, cholecystitis, denise Cholelithiasis, gastritis, GI Bleed, Mesenteric ischemia or infarction, myocardia ischemia or infarction, non-specific abd pain, pancreatitis, Peptic Ulcer Disease, urinary tract infection. Data reviewed: vital signs, nurses notes, lab test result(s), EKG, radiologic studies, CT scan. Data interpreted: monitor technician: rate is 92 beats/min, rhythm is regular, Pulse oximetry: on room air is 98 %. Test interpretation: by ED physician or midlevel provider: ECG, plain radiologic studies. Counseling: I had a detailed discussion with the patient and/or guardian regarding: the historical points, exam findings, and any diagnostic results supporting the discharge/admit diagnosis, lab results, radiology results. 08/26 14:43 Order name: Basic Metabolic Panel [facility] 08/26 14:43 Order name: CBC with Diff [facility] 08/26 14:43 Order name: LFT's [facility] 08/26 14:43 Order name: Magnesium [facility] 08/26 14:43 Order name: NT PRO-BNP; Complete Time: 15:50 [facility] 08/26 14:43 Order name: PT-INR; Complete Time: 15:46 [facility] 08/26 14:43 Order name: Troponin (emerg Dept Use Only); Complete Time: 15:50 [facility] 08/26 14:43 Order name: Lipase; Complete Time: 15:50 [facility] 08/26 14:43 Order name: Basic Metabolic Panel; Complete Time: 15:50 EDMS 08/26 14:43 Order name: CBC with Automated Diff; Complete Time: 15:46 EDMS 08/26 14:43 Order name: Liver (Hepatic) Function; Complete Time: 15:50 EDMS 08/26 14:43 Order name: Magnesium; Complete Time: 15:50 EDMS 08/26 15:30 Order name: Glucose, Ancillary Testing; Complete Time: 15:46 EDMO 08/26 17:16 Order name: Glucose, Ancillary Testing [facility] 08/26 14:43 Order name: XRAY Chest (1 view); Complete Time: 16:00 [facility] 08/26 14:43 Order name: EKG; Complete Time: 14:44 [facility] 08/26 14:43 Order name: Cardiac monitoring; Complete Time: 15:11 [facility] 08/26 14:43 Order name: EKG - Nurse/Tech; Complete Time: 15:11 [facility] 08/26 14:43 Order name: IV Saline Lock; Complete Time: 15:11 [facility] 08/26 14:43 Order name: Labs collected and sent; Complete Time: 15:11 [facility] 08/26 14:43 Order name: O2 Per Protocol; Complete Time: 15:11 [facility] 08/26 14:43 Order name: O2 Sat Monitoring; Complete Time: 15:12 [facility] 08/26 14:43 Order name: CT Abd/Pelvis - IV Contrast Only; Complete Time: 16:39 [facility] 08/26 17:16 Order name: Glucose, Ancillary Testing [facility] 08/26 14:43 Order name: Urine Dipstick-Ancillary (obtain specimen); Complete Time: 17:10 [facility] 08/26 14:43 Order name: Blood Glucose Level; Complete Time: 17:10 [facility] 08/26 16:13 Order name: Blood Glucose Level; Complete Time: 17:08 denise EC:59 Rate is 92 beats/min. Rhythm is regular. QRS [place] is Normal. [place] interval is normal. QRS denise interval is normal. QT interval is normal. No Q waves. T waves are Normal. No ST changes noted. Clinical impression: Normal ECG and No evidence of ischemia. Interpreted by me. Reviewed by me. Administered Medications: 15:29 Drug: NS 0.9% 500 ml Route: IV; Rate: bolus; Site: right antecubital; zb 17:10 Follow up: Response: No adverse reaction; Marked relief of symptoms; IV Status: zb Completed infusion; IV Intake: 500ml 15:30 Drug: NS 0.9% 1000 ml Route: IV; Rate: 125 ml/hr; Site: right antecubital; zb 17:10 Follow up: Response: No adverse reaction; Marked relief of symptoms; IV Status: zb Completed infusion; IV Intake: 125ml 16:13 Drug: NS 0.9% 1000 ml Route: IV; Rate: 1 bolus; Site: left antecubital; zb 17:09 Follow up: Response: No adverse reaction; Marked relief of symptoms; IV Status: zb Completed infusion; IV Intake: 1000ml 16:30 Drug: Insulin Regular Human 10 units {Co-Signature: [email or web address] (Alexis Damian RN).} Route: IVP; aa5 Site: right antecubital; 17:09 Follow up: Response: No adverse reaction; Marked relief of symptoms; Blood sugar is zb lowered 16:30 Drug: Insulin Regular Human 10 units {Co-Signature: [email or web address] (Alexis Damian RN).} Route: aa5 Sub-Q; Site: left lower abdomen; 17:09 Follow up: Response: No adverse reaction; No change in condition; Blood pressure is zb elevated 16:30 Drug: Pepcid (famotidine) 20 mg Route: IVP; Site: right antecubital; aa5 17:09 Follow up: Response: No adverse reaction; Marked relief of symptoms zb Disposition: 08/26/20 15:54 Discharged to Home. Impression: Type 2 diabetes mellitus, Type 2 diabetes mellitus with hyperglycemia, Obesity, unspecified, Tobacco abuse counseling, Tobacco use. - Condition is Stable. - Discharge Instructions: Type 2 Diabetes Mellitus, Diagnosis, Adult, Hyperglycemia, Obesity, Adult, Steps to Quit Smoking, Smoking Hazards, Blood Glucose Monitoring, Adult, Diabetes Mellitus and Food. - Prescriptions for Glyburide 5 mg Oral Tablet - take 1 tablet by ORAL route once daily; 20 tablet. Metformin 850 mg Oral Tablet - take 1 tablet by ORAL route 2 times per day with morning and evening meals; 60 tablet. - Medication Reconciliation Form, Thank You Letter, Antibiotic Education, Prescription Opioid Use form. - Follow up: Private Physician; When: 2 - 3 days; Reason: Recheck today's complaints, Continuance of care, Re-evaluation by your physician. Follow up: Claire Chamberlain MD; When: 2 - 3 days; Reason: Recheck today's complaints, Continuance of care, Re-evaluation by your physician. - Problem is new. - Symptoms have improved. Signatures: Dispatcher [employer] EDMS Derek Gunter MD MD cha Calderon, Audri, RN RN aa5 Brooke Pepper RN Billie Joens RN RN zb Jahala Leal RN jl7 Corrections: (The following items were deleted from the chart) 17:22 15:54 08/26/2020 15:54 Discharged to Home. Impression: Type 2 diabetes mellitus; Type 2 zb diabetes mellitus with hyperglycemia; Obesity, unspecified; Tobacco abuse counseling; Tobacco use. Condition is Stable. Forms are Medication Reconciliation Form, Thank You Letter, Antibiotic Education, Prescription Opioid Use. Follow up: Private Physician; When: 2 - 3 days; Reason: Recheck today's complaints, Continuance of care, Re-evaluation by your physician. Follow up: Claire Chamberlain; When: 2 - 3 days; Reason: Recheck today's complaints, Continuance of care, Re-evaluation by your physician. Problem is new. Symptoms have improved. denise
--- NOTE | 2020-08-26 15:58 | RAD REPORT ---
EXAM DESCRIPTION: RAD - Chest Single View - 08/26/2020 3:11 pm CLINICAL HISTORY: COUGH, hypertension, blurred vision COMPARISON: Portable May 2018 TECHNIQUE: AP portable chest image was obtained 08/26/2020 3:11 pm . FINDINGS: No peripheral mass or consolidation. Heart size and central vasculature are normal and sta ble. Interstitial pattern is fractionally increased over comparison. Interval changes minimal; howeve r, interstitial edema or infiltrate would be possible. Trachea is midline. No measurable pleural effusion and no pneumothorax. No acute bony abnormality se en. No acute aortic findings suspected. IMPRESSION: No focal mass or consolidation. Interstitial pattern is slightly increased over baseline. Differential is minimal but could indicate early interstitial edema or infiltrate.
--- NOTE | 2020-08-26 16:04 | RAD REPORT ---
EXAM DESCRIPTION: CT - Abdomen Pelvis W Contrast - 08/26/2020 3:37 pm CLINICAL HISTORY: ABD PAIN COMPARISON: Abdomen Pelvis W Contrast dated 04/30/2018 TECHNIQUE: Biphasic, helical CT imaging of the abdomen and pelvis was performed following 100 ml non -ionic IV contrast. No oral contrast administered. All CT scans are performed using dose optimization technique as appropriate and may include automated exposure control or mA/KV adjustment according to patient size. FINDINGS: No suspicious findings in the lung bases. Diffuse fatty infiltration of the liver is again noted with no focal liver lesion. No portal vein abn ormality. Hepatomegaly is similar comparison with a 23 centimeter craniocaudal dimension. No splenome luis or focal splenic finding. Pancreas and spleen show no suspicious findings. Gallbladder is absent . No biliary tree dilatation. Symmetric renal function is present. No hydronephrosis. No solid mass lesion confirmed. Numerous smal l cortical cysts are present in a pattern similar to the 2018 study. No pyelonephritis or acute paren chymal process. No bladder abnormalities. No adrenal abnormalities. Uterus is absent. Ovaries are abs ent, atrophic or isodense to the on opacified bowel. No adnexal mass. No dilated bowel loops or bowel wall thickening. Appendix is normal. No active GI process identified. No free air, free fluid or inflammatory stranding. No mass, bulky lymphadenopathy or omental thicke zohreh. Patient has a fat only supraumbilical hernia at 3.5 cm in diameter with a 2 centimeter neck. Th e hernia has fractionally increased from 2018 but shows no edematous fat and no adjacent bowel. No suspicious bony findings. Disc and bone degenerative changes are present. IMPRESSION: Contrast enhanced CT abdomen and pelvis showing no acute or emergent finding. Hepatomegaly and diffuse fatty infiltration findings are stable from 2018. No splenomegaly.
[2020-08-26] MEDS ORDERED: FAMOTIDINE 20 MG/2 ML VIAL IV ONE (16:42)
[2020-08-26] MEDS ORDERED: INSULIN -REGULAR HUMAN 50 UNIT/0.5 ML ML ONE (16:42)
[2020-08-26 17:53] VITALS: TEMP 96.4
[2020-08-26 17:58] VITALS: BP 116/77; O2SAT 95
[2020-08-29 14:45] LABS: Urine Blood Negative (Negative); Urine Glucose 2+ (Negative); Urine Protein Negative (Negative)
== END 2020-08-26 17:22 | disposition home or self-care (01) ==
LOC: ER 14:09
DX: E11.65 Type 2 diabetes mellitus with hyperglycemia (principal); E66.9 Obesity, unspecified; F17.210 Nicotine dependence, cigarettes, uncomplicated; I11.0 Hypertensive heart disease with heart failure; I50.9 Heart failure, unspecified; Z85.42 Personal history of malignant neoplasm of other parts of uterus; E78.5 Hyperlipidemia, unspecified; E07.9 Disorder of thyroid, unspecified; Z68.41 Body mass index [BMI] 40.0-44.9, adult
CPT/HCPCS: 36415; 71045; 74177; 80048; 80076; 81003; 82565; 82947; 83690; 83735; 83880; 84484; 85025; 85610; 93005; 96361; 96372; 96374; 96375; 99285; J7030; J7040; Q9967

== ENCOUNTER 2021-10-10 16:29 | Emergency (ER) | payer SELFPAY ==
--- OUTSIDE RECORDS SUMMARY | 2021-10-10 16:31 | XMS REPORT | Continuity of Care Document ---
:1980 Author Organization [facility] t Address [address] [place] [address] Care Team Providers Name Role Phone Unavailable Unavailable Unavailable Problems This patient has no known problems. Allergies, Adverse Reactions, Alerts This patient has no known allergies or adverse reactions. Medications This patient has no known medications. Procedures This patient has no known procedures. Results Test Description Test Time Test Comments Results Result Comments Source BUPRENORPHINE AND METABOLITE 2021-05-01 18:30:21 Test Item Value Reference Range Interpretation Comme nts NORBUPRENORPHINE (test code = <1.0 ng/mL 40568) BUPRENORPHINE (test code = 18179) <1.0 ng/mL INTERPRETIVE INFORMATION: Buprenorphine a nd Metabolites, Serum or Plasma, QuantitativeMet hodology: Quantitative Liquid Chromato graphy-Tandem Mass SpectrometryPos itive cutoff: 1 ng/mLFor medica l purposes only; not valid for foren sic use.The presence of metabolite(s ) without parent drug is common and m ay indicate use of parent drug dur ing the prior week. The absence of expected drug(s) and/or drug met abolite(s) may indicate non-co mpliance, inappropriate t iming of specimen collection rela tive to drug administration, poor drug absorption, or limitations of testing. The concentration v alue must be greater than or equal t o the cutoff to be reported as pos itive. Interpretive questions shoul d be directed to the laboratory.This test was developed and its perform ance characteristics determined by [facility]. It has not been cl eared or approved by the [place] Food and Drug Administration. This test was p erformed in a CLIA certified labor atory and is intended for clinical pu rposes. TESTING PERFORMED AT [facility], [facility] [address] [place], [place] [address] [place]. [id number] CLIA NO. [id number] DRUG SCREEN, SERUM, NO [id number] 09:30:24 Test Item Value Reference Interpretation Comments Range AMPHETAMINES (test Negative code = 22432) BARBITURATES (test Negative code = 89080) BENZODIAZEPINES Negative (test code = 32945) COCAINE METABOLITE Negative (test code = 75378) METHADONE (test Negative code = 80813) OPIATES (test code Negative = 841389) PHENCYCLIDINE (test Negative code = 739535) PROPOXYPHENE (test Negative code = 820844) THC (CANNABIS) Positive (test code = 232224) ETHANOL (test code Negative Screen = 646397) Decision Limits Drug Analyzed Screen Units -- ------ ----- Amphetamine 500 ng/mL Barbiturate 150 ng/mL Benzodiazepin es 100 ng/mL Cocaine 150 ng/mL Ethanol 10 mg/dL Toxic Blood Ethanol > 300 mg/dL Me thadone 150 ng/mL Opiates 150 ng/mL Phencyclidine 12 ng/mL Propoxyphene 150 ng/mL THC (Cannabis) 50 ng/mL A positiv e immunoassay result on a ser um drug screen isconsidered pr esumptive evidence for th e presence of thedrug or its metabolite. Since some immu noassay testsdetect onl y inactive metabolites and others are sensitiveto carolyn y low drug levels, positiv e results may not correlatewi th the patient's physi ological state. For conf irmation of positive immuno assay results by analternate method or for consultation, please contact thelaboratory. If applicable, any drug confirmation te sting reportedhere wa s developed and the perform ance characteristics determined by [facility]. This confirmati on testing has not been cleare d or approvedby the FDA. The laboratory is r egulated under CLIA asqualifie d to perform high-complexity testing. This testis used for patient testing purpose s. It should not beregarded as investigational or for research. UNLESS OTHERWISE INDIC ATED, ALL TESTING PERFORM [facility] [employer] [address] [facility] [place] [address] INSERT OPERATOR: FLORA TREADWELL M.D. CLIA NUMBER [id number] [place]. [id number]
--- NOTE | 2021-10-10 18:29 | EDPHYS ---
Physician Documentation [facility] Name: Zakia Franks Age: 41 yrs Sex: Female : 1980 Arrival Date: 10/10/2021 Time: 16:33 Bed 12 Private MD: ED Physician Prasad Fulton HPI: 10/10 18:31 This 41 yrs old Female presents to ER via Ambulatory with complaints of Breast Problem, pm1 Skin Problem. 18:31 The patient presents with an abscess of the right breast. Description: draining. Onset: pm1 The symptoms/episode began/occurred 3 day(s) ago. Possible cause(s): unknown. Associated signs and symptoms: Pertinent negatives: fever. Modifying factors: the symptoms are alleviated by nothing, the symptoms are aggravated by squeezing the lesion and expressing the contents. Severity of symptoms: in the emergency department the symptoms have improved. The patient has experienced similar episodes in the past, a few times. Patient also reports yeast infection to her groin area. 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 - Social history:: Smoking status: Patient denies any tobacco usage or history of. Patient/guardian denies using alcohol. ROS: 18:31 Constitutional: Negative for fever, chills, and weight loss, Cardiovascular: Negative pm1 for chest pain, palpitations, and edema, Respiratory: Negative for shortness of breath, cough, wheezing, and pleuritic chest pain. 18:31 Abdomen/GI: Negative for abdominal pain, nausea, vomiting, diarrhea, and constipation, MS/Extremity: Negative for injury and deformity. 18:31 Skin: Positive for abscess, of the right breast, Rash to groin area, Negative for cellulitis. 18:31 All other systems are negative. Exam: 18:31 Constitutional: This is a well developed, well nourished patient who is awake, alert, pm1 and in no acute distress. Head/Face: Normocephalic, atraumatic. 18:31 MS/ Extremity: Pulses equal, no cyanosis. Neurovascular intact. Full, normal range of motion. 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 18:31 Cardiovascular: Exam negative for acute changes, Rate: normal, Rhythm: regular, Pulses: no pulse deficits are appreciated. 18:31 Respiratory: Exam negative for acute changes, respiratory distress, shortness of breath. 18:31 Skin: abscess, As noted on chest exam. 18:31 Neuro: Exam negative for acute changes, Orientation: is normal, Mentation: is normal, Motor: is normal, moves all fours. Vital Signs: 17:31 BP 131 / 91; Pulse 105; Resp 18; Temp 98.9(O); Pulse Ox 97% on R/A; Weight 118.84 kg; ld1 Height 5 ft. 7 in. (170.18 cm); Pain 8/10; 17:31 Body Mass Index 41.03 (118.84 kg, 170.18 cm) ld1 MDM: 18:22 Patient medically screened. pm1 18:27 Data reviewed: vital signs. Data interpreted: Pulse oximetry: on room air is 97 %. pm1 Interpretation: normal. Counseling: I had a detailed discussion with the patient and/or guardian regarding: the historical points, exam findings, and any diagnostic results supporting the discharge/admit diagnosis, the need for outpatient follow up, for definitive care, a plastic surgeon, to return to the emergency department if symptoms worsen or persist or if there are any questions or concerns that arise at home. 18:27 Refusal of service: The patient/guardian displays adequate decision making capability pm1 and despite a detailed discussion of alternatives, benefits, risks, and consequences refuses: Patient refused evaluation, palpation of abscess. Patient refused possible incision and drainage of abscess. Told me that she just wants antibiotics and to be discharged. Administered Medications: 18:32 Not Given (Patient ): Clindamycin 600 mg IM once pm1 18:45 Not Given (Not available in pharmacyy): Clindamycin 600 mg IM once ld1 18:45 Drug: DiFLUcan (fluconazole) 150 mg Route: PO; ld1 19:27 Follow up: Response: Medication administered at discharge. ss 18:46 Not Given (Patient Refused): HYDROcodone-acetaminophen 5 mg-325 mg 1 tabs PO once ld1 18:46 Drug: Clindamycin 300 mg Route: PO; ld1 19:27 Follow up: Response: No adverse reaction; Medication administered at discharge. ss Disposition: 18:49 Co-signature as Attending Physician, Prasad Fulton MD I agree with the assessment and kdr plan of care. Disposition Summary: 10/10/21 18:29 Discharge Ordered Location: Home pm1 Problem: new pm1 Symptoms: have improved pm1 Condition: Stable pm1 Diagnosis - Right breast abscess pm1 Followup: pm1 - With: Emergency Department - When: As needed - Reason: Worsening of condition Followup: pm1 - With: Private Physician - When: 2 - 3 days - Reason: Recheck today's complaints, Continuance of care, Re-evaluation by your physician Discharge Instructions: - Discharge Summary Sheet pm1 - Skin Abscess pm1 Forms: - Medication Reconciliation Form pm1 - Thank You Letter pm1 - Antibiotic Education pm1 - Prescription Opioid Use pm1 Prescriptions: - Clindamycin HCl 300 mg Oral Capsule - take 1 capsule by ORAL route every 6 hours for 10 days; 40 capsule; Refills: 0, pm1 Product Selection Permitted - mupirocin 2 % Topical ointment - apply 1 application by TOPICAL route 3 times per day; 1 tube; Refills: 0, pm1 Product Selection Permitted Signatures: Prasad Fulton MD MD [facility] Kamlesh Lewis NP CLAY ROASTER pm1 Madeleine Nails RN RN ld1 Dari Reza RN
--- NOTE | 2021-10-10 18:29 | ER ---
Nurse's Notes [facility] Name: Zakia Franks Age: 41 yrs Sex: Female : 1980 Arrival Date: 10/10/2021 Time: 16:33 Bed 12 Private MD: Diagnosis: Right breast abscess Presentation: 10/10 17:31 Chief complaint: Patient states: Right breast boil - yeast infection causing pt to have ld1 blood in urine. Coronavirus screen: At this time, the client does not indicate any symptoms associated with coronavirus-19. Ebola Screen: No symptoms or risks identified at this time. Initial Sepsis Screen: Does the patient meet any 2 criteria? No. Patient's initial sepsis screen is negative. Does the patient have a suspected source of infection? No. Patient's initial sepsis screen is negative. Risk Assessment: Do you want to hurt yourself or someone else? Patient reports no desire to harm self or others. Onset of symptoms was October 10, 2021. 17:31 Method Of Arrival: Ambulatory ld1 17:31 Acuity: NILO 3 ld1 Triage Assessment: 17:32 General: Appears in no apparent distress. comfortable, Behavior is calm, cooperative, ld1 appropriate for age. Pain: Complains of pain in right breast Pain does not radiate. Pain currently is 8 out of 10 on a pain scale. Quality of pain is described as throbbing. EENT: No signs and/or symptoms were reported regarding the EENT system. Neuro: Level of Consciousness is awake, alert, obeys commands, Oriented to person, place, time, situation. Cardiovascular: Capillary refill < 3 seconds Patient's skin is warm and dry. Respiratory: Airway is patent Respiratory effort is even, unlabored. GI: Abdomen is flat, non-distended. Derm: Boil to right breast - oozing. 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 - Social history:: Smoking status: Patient denies any tobacco usage or history of. Patient/guardian denies using alcohol. Screenin:24 Abuse screen: Denies threats or abuse. Denies injuries from another. Nutritional ss screening: No deficits noted. Tuberculosis screening: Never had TB. Fall Risk None identified. Assessment: 19:24 General: Appears in no apparent distress. comfortable, Behavior is calm, cooperative. ss Neuro: Level of Consciousness is awake, alert, obeys commands, Oriented to person, place, time, situation. Cardiovascular: Capillary refill < 3 seconds is brisk in bilateral fingers. Respiratory: Airway is patent Respiratory effort is even, unlabored, Respiratory pattern is regular, symmetrical. EENT: Nares are clear. Derm: Skin is intact, is healthy with good turgor, Skin is pink, warm \T\ dry. normal. Vital Signs: 17:31 BP 131 / 91; Pulse 105; Resp 18; Temp 98.9(O); Pulse Ox 97% on R/A; Weight 118.84 kg; ld1 Height 5 ft. 7 in. (170.18 cm); Pain 8/10; 17:31 Body Mass Index 41.03 (118.84 kg, 170.18 cm) ld1 ED Course: 16:33 Patient arrived in ED. am2 17:30 Kamlesh Lewis NP is PHCP. pm1 17:30 Prasad Fulton MD is Attending Physician. pm1 17:32 Triage completed. ld1 17:32 Arm band placed on right wrist. ld1 19:23 Dari Reza, OSCAR is Primary Nurse. ss 19:24 Patient has correct armband on for positive identification. ss 19:24 No provider procedures requiring assistance completed. Patient did not have IV access ss during this emergency room visit. Administered Medications: 18:32 Not Given (Patient ): Clindamycin 600 mg IM once pm1 18:45 Not Given (Not available in pharmacyy): Clindamycin 600 mg IM once ld1 18:45 Drug: DiFLUcan (fluconazole) 150 mg Route: PO; ld1 19:27 Follow up: Response: Medication administered at discharge. ss 18:46 Not Given (Patient Refused): HYDROcodone-acetaminophen 5 mg-325 mg 1 tabs PO once ld1 18:46 Drug: Clindamycin 300 mg Route: PO; ld1 19:27 Follow up: Response: No adverse reaction; Medication administered at discharge. ss Medication: 19:27 VIS not applicable for this client. ss Outcome: 18:29 Discharge ordered by . pm1 19:24 Discharged to home ambulatory. 19:24 Condition: good 19:24 Discharge instructions given to patient. 19:27 Patient left the ED. Signatures: Dari Reza RN RN ss Kamlesh Lewis NP MANAGER APPLICATION pm1 Ginette Welch am2 Madeleine Nails RN RN ld1
[2021-10-10] MEDS ORDERED: HYDROCODONE/APAP 5/325 MG TAB ONE (18:40)
[2021-10-10] MEDS ORDERED: FLUCONAZOLE 100 MG TAB ONE (18:42)
[2021-10-10 19:50] VITALS: BP 131/91; TEMP 98.9; O2SAT 97
== END 2021-10-10 19:27 | disposition home or self-care (01) ==
LOC: ER 16:29
DX: N61.1 Abscess of the breast and nipple (principal); I10 Essential (primary) hypertension; I50.9 Heart failure, unspecified; Z85.89 Personal history of malignant neoplasm of other organs and systems
CPT/HCPCS: 99283

== ENCOUNTER 2022-07-29 13:06 | Emergency (ER) | payer SELFPAY ==
--- OUTSIDE RECORDS SUMMARY | 2022-07-29 13:11 | XMS REPORT | Continuity of Care Document ---
:1980 Author Organization [facility] t Address [address]. [address] [place] [address] Care Team Providers Name Role Phone Uli Gonzales Primary Care Physician [phone] Loulou Kumar DO Attending Clinician Doctor Unassigned, [place] Attending Clinician Unavailable LOULOU KUMAR Attending Clinician Unavailable Problems Condition Condition Condition Status Onset Resolution Last Treating Co mments Source Name Details Category Date Date Treatment Clinician Date No known No known Disease Unive rs active active ity of problems problems [facility] Allergies, Adverse Reactions, Alerts Allergy Allergy Status Severity Reaction(s) Onset Inactive Treating Comm ents Source Name Type Date Date Clinician NO KNOWN Drug Active Univers ALLERGIE Class ity of S [facility] Social History Social Habit Start Date Stop Date Quantity Comments Source Sex Assigned At Universit y of [facility] Exposure to Not sure [facility] SARS-CoV-2 (event) [facility] Cigarettes smoked 2020-03-03 2020-03-03 Univers ity of current (pack per 00:00:00 00:00:00 ) - Reported Branch Cigarette 2020-03-03 2020-03-03 University of pack-years 00:00:00 00:00:00 [facility] Tobacco use and 2020-03-03 2020-03-03 Never used Universit y of exposure 00:00:00 00:00:00 [facility] Alcohol intake 2020-03-03 2020-03-03 Current University of 00:00:00 00:00:00 non-drinker of [facility] alcohol Branch (finding) Smoking Status Start Date Stop Date Source Current every day smoker 2020-03-03 00:00:00 [facility] Ordered Filled Start Stop Current Ordering Indication Dosage Frequency Signature Comments Components Source Medication Medication Date Date Medication? Clinician (SIG) Name Name TAKE 1 2-0 No TABLET 9-27 TWICE 00:00: DAILY. 00 buprenorphi 2-0 No 1mg ne 8 7-06 mg-naloxone 00:00: 2 mg 00 sublingual film mupirocin 2 2-0 No 1% % topical 6-08 ointment 00:00: 00 mupirocin 2 2-0 No 1% % topical 6-08 ointment 00:00: 00 losartan 2-0 No 1mg 100 6-08 mg-hydrochl 00:00: orothiazide 00 25 mg tablet buprenorphi 2-0 No 1mg ne 8 6-08 mg-naloxone 00:00: 2 mg 00 sublingual film Dose 2-0 No Unknown 6-08 00:00: 00 buprenorphi 2022-0 No 1mg ne 8 5-11 mg-naloxone 00:00: 2 mg 00 sublingual film buprenorphi 2-0 No 1mg ne 8 5-11 mg-naloxone 00:00: 2 mg 00 sublingual film buprenorphi 2-0 No 1mg ne 8 4-27 mg-naloxone 00:00: 2 mg 00 sublingual film gabapentin 2-0 No 1mg 800 mg 4-12 tablet 00:00: 00 buprenorphi 2022-0 No 1mg ne 8 4-12 mg-naloxone 00:00: 2 mg 00 sublingual film furosemide 2-0 No 1mg 20 mg 3-28 tablet 00:00: 00 ibuprofen 2022-0 No 1mg 800 mg 3-28 tablet 00:00: 00 cephalexin 2022-0 No 1mg 500 mg 3-28 tablet 00:00: 00 prednisone 2022-0 No 1mg 10 mg 3-16 tablet 00:00: 00 buprenorphi 2022-0 No 1mg ne 8 3-16 mg-naloxone 00:00: 2 mg 00 sublingual film Dose 2-0 No Unknown 2-15 00:00: 00 gabapentin 2022-0 No 1mg 800 mg 1-12 tablet 00:00: 00 buprenorphi 2-0 No 1mg ne 8 1-12 mg-naloxone 00:00: 2 mg 00 sublingual film buprenorphi 2020-1 No 1mg ne 8 2-15 mg-naloxone 00:00: 2 mg 00 sublingual film Dose 1-1 No Unknown 0-26 00:00: 00 metformin 1-1 No 1mg 1,000 mg 0-26 tablet 00:00: 00 glimepiride 1-1 No 1mg 4 mg tablet 0-26 00:00: 00 glimepiride 1-1 No 1mg 4 mg tablet 0-26 00:00: 00 metformin 1-1 No 1mg 1,000 mg 0-26 tablet 00:00: 00 Dose 1-1 No Unknown 0-26 00:00: 00 Dose 1-1 No Unknown 0-26 00:00: 00 simvastatin 1-1 No 1mg 40 mg 0-26 tablet 00:00: 00 simvastatin 1-1 No 1mg 40 mg 0-26 tablet 00:00: 00 Dose 1-1 No Unknown 0-26 00:00: 00 gabapentin 1-1 No 1mg 800 mg 0-26 tablet 00:00: 00 gabapentin 1-1 No 1mg 800 mg 0-26 tablet 00:00: 00 losartan 1-1 No 1mg 100 0-26 mg-hydrochl 00:00: orothiazide 00 25 mg tablet losartan 1-1 No 1mg 100 0-26 mg-hydrochl 00:00: orothiazide 00 25 mg tablet levothyroxi 2020-1 No 1mcg ne 150 mcg 0-26 tablet 00:00: 00 levothyroxi 1-1 No 1mcg ne 150 mcg 0-26 tablet 00:00: 00 buprenorphi 1-1 No 1mg ne 8 0-26 mg-naloxone 00:00: 2 mg 00 sublingual film fluoxetine 2020-1 No 1mg 40 mg 0-26 capsule 00:00: 00 doxycycline 1-1 No 1mg monohydrate 0-26 100 mg 00:00: capsule 00 fluoxetine 1-1 No 1mg 40 mg 0-26 capsule 00:00: 00 glimepiride 1-0 No 1mg 4 mg tablet 01-30 00:00: 00 metformin 2021-0 No 1mg 1,000 mg 9-21 tablet 00:00: 00 buspirone 2021-0 No 1mg 30 mg 9-21 tablet 00:00: 00 simvastatin 2021-0 No 1mg 40 mg 9-21 tablet 00:00: 00 Abilify 10 1-0 No 1mg mg tablet 01-30 00:00: 00 gabapentin 2021-0 No 1mg 800 mg 9-21 tablet 00:00: 00 losartan 2021-0 No 1mg 100 9-21 mg-hydrochl 00:00: orothiazide 00 25 mg tablet levothyroxi 1-0 No 1mcg ne 150 mcg 9-21 tablet 00:00: 00 buprenorphi 2021-0 No 1mg ne 8 9-21 mg-naloxone 00:00: 2 mg 00 sublingual film fluoxetine 1-0 No 1mg 40 mg 9-21 capsule 00:00: 00 gabapentin 2021-0 No 1mg 800 mg 8-24 tablet 00:00: 00 buprenorphi 2021-0 No 1mg ne 8 8-24 mg-naloxone 00:00: 2 mg 00 sublingual film doxycycline 1-0 No 1mg monohydrate 8-24 100 mg 00:00: capsule 00 metformin 2021-0 No 1mg 1,000 mg 7-28 tablet 00:00: 00 buspirone 2021-0 No 1mg 30 mg 7-28 tablet 00:00: 00 glimepiride 2021-0 No 1mg 4 mg tablet 12-06 00:00: 00 simvastatin 2021-0 No 1mg 40 mg 7-28 tablet 00:00: 00 Abilify 10 2021-0 No 1mg mg tablet 7 00:00: 00 gabapentin 2021-0 No 1mg 800 mg 7-28 tablet 00:00: 00 losartan 2021-0 No 1mg 100 7-28 mg-hydrochl 00:00: orothiazide 00 25 mg tablet levothyroxi 1-0 No 1mcg ne 150 mcg 7-28 tablet 00:00: 00 buprenorphi 2021-0 No 1mg ne 8 7-28 mg-naloxone 00:00: 2 mg 00 sublingual film fluoxetine 1-0 No 1mg 40 mg 7-28 capsule 00:00: 00 buspirone 2021-0 No 1mg 30 mg 6-30 tablet 00:00: 00 glimepiride 2021-0 No 1mg 4 mg tablet 630 00:00: 00 metformin 2021-0 No 1mg 1,000 mg 6-30 tablet 00:00: 00 simvastatin 2021-0 No 1mg 40 mg 6-30 tablet 00:00: 00 Abilify 10 1-0 No 1mg mg tablet 30 00:00: 00 gabapentin 2021-0 No 1mg 800 mg 6-30 tablet 00:00: 00 losartan 2021-0 No 1mg 100 6-30 mg-hydrochl 00:00: orothiazide 00 25 mg tablet levothyroxi 1-0 No 1mcg ne 150 mcg 6-30 tablet 00:00: 00 buprenorphi 2021-0 No 1mg ne 8 6-30 mg-naloxone 00:00: 2 mg 00 sublingual film fluoxetine 1-0 No 1mg 40 mg 6-30 capsule 00:00: 00 glimepiride 2021-0 No 1mg 4 mg tablet 10-11 00:00: 00 buspirone 2021-0 No 1mg 30 mg 6-02 tablet 00:00: 00 simvastatin 2021-0 No 1mg 40 mg 6-02 tablet 00:00: 00 Abilify 10 1-0 No 1mg mg tablet 10-11 00:00: 00 losartan 2021-0 No 1mg 100 6-02 mg-hydrochl 00:00: orothiazide 00 25 mg tablet levothyroxi 1-0 No 1mcg ne 150 mcg 6-02 tablet 00:00: 00 fluoxetine 2021-0 No 1mg 40 mg 6-02 capsule 00:00: 00 gabapentin 2021-0 No 1mg 800 mg 6-01 tablet 00:00: 00 fluconazole 2021-0 No 1mg 150 mg 6-01 tablet 00:00: 00 buprenorphi 2021-0 No 1mg ne 8 6-01 mg-naloxone 00:00: 2 mg 00 sublingual film doxycycline 2021-0 No 1mg monohydrate 6-01 100 mg 00:00: capsule 00 gabapentin 2021-0 No 1mg 800 mg 5-04 tablet 00:00: 00 buprenorphi 2021-0 No 1mg ne 8 5-04 mg-naloxone 00:00: 2 mg 00 sublingual film metformin 1-0 No 1mg 1,000 mg 4-20 tablet 00:00: 00 glimepiride 1-0 No 1mg 4 mg tablet 4-20 00:00: 00 sulfamethox 1-0 No 1mg azole 800 4-20 mg-trimetho 00:00: prim 160 mg 00 tablet fluconazole 1-0 No 1mg 150 mg 4-20 tablet 00:00: 00 buspirone 2021-0 No 1mg 30 mg 4-06 tablet 00:00: 00 simvastatin 1-0 No 1mg 40 mg 4-06 tablet 00:00: 00 gabapentin 2021-0 No 1mg 800 mg 4-06 tablet 00:00: 00 losartan 1-0 No 1mg 100 4-06 mg-hydrochl 00:00: orothiazide 00 25 mg tablet levothyroxi 1-0 No 1mcg ne 150 mcg 4-06 tablet 00:00: 00 buprenorphi 1-0 No 1mg ne 8 4-06 mg-naloxone 00:00: 2 mg 00 sublingual film fluoxetine 1-0 No 1mg 40 mg 4-06 capsule 00:00: 00 Abilify 10 1-0 No 1mg mg tablet 3-18 00:00: 00 levothyroxi 1-0 No 1mcg ne 150 mcg 3-09 tablet 00:00: 00 buprenorphi 2021-0 No 1mg ne 8 3-09 mg-naloxone 00:00: 2 mg 00 sublingual film fluoxetine 1-0 No 1mg 40 mg 3-09 capsule 00:00: 00 buspirone 2021-0 No 1mg 30 mg 3-09 tablet 00:00: 00 simvastatin 2021-0 No 1mg 40 mg 3-09 tablet 00:00: 00 gabapentin 2021-0 No 1mg 600 mg 3-09 tablet 00:00: 00 losartan 2021-0 No 1mg 100 3-09 mg-hydrochl 00:00: orothiazide 00 25 mg tablet Abilify 5 1-0 No 1mg mg tablet 3-04 00:00: 00 fluoxetine 2021-0 No 1mg 40 mg 3-04 capsule 00:00: 00 simvastatin 2021-0 No 1mg 40 mg 2-09 tablet 00:00: 00 gabapentin 1-0 No 1mg 600 mg 2-09 tablet 00:00: 00 losartan 1-0 No 1mg 100 2-09 mg-hydrochl 00:00: orothiazide 00 25 mg tablet levothyroxi 2020-0 No 1mcg ne 150 mcg 2-09 tablet 00:00: 00 buprenorphi 1-0 No 1mg ne 8 2-09 mg-naloxone 00:00: 2 mg 00 sublingual film fluoxetine 1-0 No 1mg 40 mg 2-09 capsule 00:00: 00 buprenorphi 1-0 No 1mg ne 8 2-03 mg-naloxone 00:00: 2 mg 00 sublingual film simvastatin 2020-0 No 1mg 40 mg 1-20 tablet 00:00: 00 losartan 1-0 No 1mg 100 1-20 mg-hydrochl 00:00: orothiazide 00 25 mg tablet levothyroxi 2020-0 No 1mcg ne 150 mcg 1-20 tablet 00:00: 00 buprenorphi 1-0 No 1mg ne 8 1-20 mg-naloxone 00:00: 2 mg 00 sublingual film fluoxetine 2020-0 No 1mg 40 mg 1-20 capsule 00:00: 00 buprenorphi 2019-1 No 1mg ne 8 2-21 mg-naloxone 00:00: 2 mg 00 sublingual film gabapentin 2019-1 No 1mg 600 mg 1-23 tablet 00:00: 00 buprenorphi 2019-1 No 1mg ne 8 1-23 mg-naloxone 00:00: 2 mg 00 sublingual film metronidazo 2019-1 No 1mg le 500 mg 1-10 tablet 00:00: 00 amoxicillin 2020-1 No 1mg 875 1-10 mg-potassiu 00:00: m 00 clavulanate 125 mg tablet buprenorphi 2019-1 No 1mg ne 8 1-10 mg-naloxone 00:00: 2 mg 00 sublingual film simvastatin 2019-1 No 1mg 40 mg 1-03 tablet 00:00: 00 gabapentin 2020-1 No 1mg 600 mg 1-03 tablet 00:00: 00 losartan 2019-1 No 1mg 100 1-03 mg-hydrochl 00:00: orothiazide 00 25 mg tablet levothyroxi 2019-05 No 1mcg ne 150 mcg 1-03 tablet 00:00: 00 buprenorphi 2019-05 No 1mg ne 8 1-03 mg-naloxone 00:00: 2 mg 00 sublingual film fluoxetine 2019-05 No 1mg 40 mg 1-03 capsule 00:00: 00 iohexol 2019-05- No 120mL 120 mL, Unive rs (OMNIPAQUE 0-23 10- Intravenou it y of 350 21:10: 21:10 s, ONCE, 1 [place] BULK-150 00 :00 dose, Fri Medica l mL) 03/03/20 Branch injection at 1615, 120 mL Routine ketorolac 2019-05- No 30mg 30 mg, Unive rs (TORADOL) 0 10 Slow IV ity of injection 20:00: 20:25 Push, [place] 30 mg 00 :00 ONCE, 1 Medical dose, Fri Branch 03/03/20 at 1500, PIPPA
Fa culty member approving Restricted medication : LOULOU KUMAR amoxicillin 2019-05 2020- No [id number] 1{tbl} Take 1 Univers -clavulanat 0-23 10-31 tablet by it y of e 875-125 00:00: 04:59 mouth [place] mg per 00 :00 every 12 Medical tablet (twelve) Branch hours for 7 days. furosemide 2019-05 No 1mg 40 mg 0-20 tablet 00:00: 00 furosemide 2019-05 No 1mg 40 mg 0-20 tablet 00:00: 00 buprenorphi 2019-05 No 1mg ne 8 0-20 mg-naloxone 00:00: 2 mg 00 sublingual film buprenorphi 2019-05 No 1mg ne 8 0-20 mg-naloxone 00:00: 2 mg 00 sublingual film buspirone 2019-05 No 1mg 30 mg 0-07 tablet 00:00: 00 gabapentin 2019-05 No 1mg 600 mg 0-07 tablet 00:00: 00 losartan 2019-05 No 1mg 100 0-07 mg-hydrochl 00:00: orothiazide 00 25 mg tablet hydroxyzine 2019-05 No 1mg HCl 25 mg 0-07 tablet 00:00: 00 hydroxyzine 2019-05 No 12mg HCl 25 mg 0-07 tablet 00:00: 00 buprenorphi 2020-1 No 1mg ne 8 0-07 mg-naloxone 00:00: 2 mg 00 sublingual film fluoxetine 2020-1 No 1mg 40 mg 0-07 capsule 00:00: 00 triamcinolo 2020-0 No 1% ne 9-23 acetonide 00:00: 0.1 % 00 topical cream prednisone 2020-0 No 1mg 20 mg 9-23 tablet 00:00: 00 buspirone 2020-0 No 1mg 30 mg 9-23 tablet 00:00: 00 hydroxyzine 2020-0 No 1mg HCl 25 mg 9-23 tablet 00:00: 00 buprenorphi 2020-0 No 1mg ne 8 9-23 mg-naloxone 00:00: 2 mg 00 sublingual film fluoxetine 2020-0 No 1mg 40 mg 9-23 capsule 00:00: 00 gabapentin 2020-0 No 1mg 600 mg 9-15 tablet 00:00: 00 buprenorphi 2020-0 No 1mg ne 8 9-15 mg-naloxone 00:00: 2 mg 00 sublingual film simvastatin 2020-0 No 1mg 40 mg 9-04 tablet 00:00: 00 losartan 2020-0 No 1mg 100 9-04 mg-hydrochl 00:00: orothiazide 00 25 mg tablet levothyroxi 2020-0 No 1mcg ne 150 mcg 9-04 tablet 00:00: 00 fluoxetine 2020-0 No 1mg 40 mg 9-04 capsule 00:00: 00 gabapentin 2020-0 No 1mg 300 mg 9-04 capsule 00:00: 00 gabapentin 2020-0 2020- No 600mg 600 mg, Un kim (NEURONTIN) 12-27- Oral, ity of tablet 600 17:45: 16:33 ONCE, 1 [place] as mg 00 :00 dose, e Medical 12/28/19 at Branch 1245, Routine ondansetron 2019-0 2020- No 4mg 4 mg, Univ ers (ZOFRAN-ODT 12-27 Oral, ity of ) 17:00: 15:54 ONCE, 1 [place] disintegrat 00 :00 dose, Replaced By [facility] Med ical ing tablet 12/28/19 at [facility] 4 mg 1200, Routine clindamycin 2019-0 2020- No [id number] 300mg Take 1 Univers 300 mg 12-27- capsule by ity of capsule 00:00: 04:59 mouth 4 [place] 00 :00 (four) Medical times Branch daily for 7 days. lisinopril 2020-0 No 1mg 20 7-28 mg-hydrochl 00:00: orothiazide 00 25 mg tablet fluoxetine 2020-0 No 1mg 20 mg 7-28 tablet 00:00: 00 simvastatin 2020-0 No 1mg 40 mg 7-28 tablet 00:00: 00 levothyroxi 2020-0 No 1mcg ne 150 mcg 7-28 tablet 00:00: 00 gabapentin 2020-0 No 1mg 300 mg 7-28 capsule 00:00: 00 gabapentin 2020-0 No 1mg 300 mg 5-21 capsule 00:00: 00 gabapentin 2020-0 No 1mg 100 mg 5-14 capsule 00:00: 00 promethazin 2020-0 No 10mg/5 e-DM 6.25 3-19 mL mg-15 mg/5 00:00: mL oral 00 syrup ranitidine 2020-0 No 1mg 300 mg 3-16 tablet 00:00: 00 lisinopril 2020-0 No 1mg 20 3-16 mg-hydrochl 00:00: orothiazide 00 25 mg tablet simvastatin 2020-0 No 1mg 40 mg 3-16 tablet 00:00: 00 levothyroxi 2020-0 No 1mcg ne 150 mcg 3-16 tablet 00:00: 00 amoxicillin 2020-0 No 1mg 500 mg 3-16 capsule 00:00: 00 gabapentin 2020-0 No 1mg 100 mg 3-16 capsule 00:00: 00 Tessalon 2020-0 No 1mg Perles 100 3-16 mg capsule 00:00: 00 levothyroxi 2019-0 No 1mcg ne 150 mcg 6-28 tablet 00:00: 00 levothyroxi 2019-0 No 1mcg ne 150 mcg 1-16 tablet 00:00: 00 Vitamin D2 2019-0 No 1unit 50,000 unit 1-16 capsule 00:00: 00 simvastatin 2019-0 No 1mg 40 mg 1-15 tablet 00:00: 00 cyclobenzap 2019-0 No 1mg rine 10 mg 1-15 tablet 00:00: 00 prednisone 2019-0 No mg 20 mg 1-15 tablet 00:00: 00 lisinopril 2018-0 No 1mg 20 4-30 mg-hydrochl 00:00: orothiazide 00 25 mg tablet ranitidine 2018-0 No 1mg 300 mg 4-30 tablet 00:00: 00 albuterol 2017-0 No 1mg sulfate 4 4-30 mg tablet 00:00: 00 gemfibrozil 2018-0 No 1mg 600 mg 4-30 tablet 00:00: 00 fluoxetine 2018-0 No 1mg 20 mg 4-30 capsule 00:00: 00 promethazin 2017-0 No 5mg/5 e-DM 6.25 4-30 mL mg-15 mg/5 00:00: mL oral 00 syrup ProAir HFA 2017-0 No 1mcg/ac 90 3-05 tuation mcg/actuati 00:00: on aerosol 00 inhaler gemfibrozil 2017-0 No 1mg 600 mg 3-05 tablet 00:00: 00 lisinopril 2017-0 No 1mg 20 3-05 mg-hydrochl 00:00: orothiazide 00 25 mg tablet promethazin 2017-0 No 10mg/5 e-DM 6.25 3-05 mL mg-15 mg/5 00:00: mL oral 00 syrup traMADOL 2016-05 Yes 50mg Take 1 Univers (ULTRAM) 50 2-30 tablet by ity of mg tablet 00:00: mouth [place] 00 every 6 Medical (six) Branch hours as needed for Pain (scale 4-6). proMETHazin 2016-05 Yes 25mg Take 1 Univ ers e 25 mg 2-30 tablet by ity of tablet 00:00: mouth [place] 00 every 6 Medical (six) Branch hours as needed for Nausea and Vomiting (N/V). traMADOL 2016-05 Yes 50mg Take 1 Univers (ULTRAM) 50 2-30 tablet by ity of mg tablet 00:00: mouth [place] 00 every 6 Medical (six) Branch hours as needed for Pain (scale 4-6). proMETHazin 2016- Yes 25mg Take 1 Univ ers e 25 mg 2-30 tablet by ity of tablet 00:00: mouth [place] 00 every 6 Medical (six) Branch hours as needed for Nausea and Vomiting (N/V). traMADOL 2016- Yes 50mg Take 1 Univers (ULTRAM) 50 2-30 tablet by ity of mg tablet 00:00: mouth [place] 00 every 6 Medical (six) Branch hours as needed for Pain (scale 4-6). proMETHazin 2016-05 Yes 25mg Take 1 Univ ers e 25 mg 2-30 tablet by ity of tablet 00:00: mouth [place] [id number] every 6 Medical (six) Branch hours as needed for Nausea and Vomiting (N/V). cyclobenzap 2016-05 No 1mg rine 10 mg 2-05 tablet 00:00: 00 lisinopril 2016-05 No 1mg 20 2-05 mg-hydrochl 00:00: orothiazide 00 25 mg tablet lisinopril 2016-05 No 1mg 20 2-05 mg-hydrochl 00:00: orothiazide 00 25 mg tablet promethazin 2016-05 No 10mg/5 e-DM 6.25 2-05 mL mg-15 mg/5 00:00: mL syrup 00 promethazin 2016-05 No 10mg/5 e-DM 6.25 2-05 mL mg-15 mg/5 00:00: mL syrup 00 gemfibrozil 2016-05 No 1mg 600 mg 2-05 tablet 00:00: 00 prednisone 2016-05 No 1mg 20 mg 2-05 tablet 00:00: 00 cyclobenzap 2016-05 No 1mg rine 10 mg 2-05 tablet 00:00: 00 gemfibrozil 2016-05 No 1mg 600 mg 2-05 tablet 00:00: 00 cyclobenzap 2016-05 No 1mg rine 10 mg 2-05 tablet 00:00: 00 prednisone 2016-05 No 1mg 20 mg 2-05 tablet 00:00: 00 prednisone 2016-05 No 1mg 20 mg 2-05 tablet 00:00: 00 LISINOPRIL- Yes Take by Uni vers HYDROCHLORO 5-06 mouth. ity of THIAZIDE 03:04: [address] PREGABALIN Yes Take by [facility] ers (LYRICA 5-06 mouth. ity of ORAL) 03:04: [address] LISINOPRIL- Yes Take by Uni vers HYDROCHLORO 5-06 mouth. ity of THIAZIDE 03:04: [address] PREGABALIN Yes Take by Univ ers (LYRICA 5-06 mouth. ity of ORAL) 03:04: [address] LISINOPRIL- Yes Take by Uni vers HYDROCHLORO 5-06 mouth. ity of THIAZIDE 03:04: [place] ORAL 17 Medical Branch PREGABALIN 2017-0 Yes Take by Univ ers (LYRICA 5-06 mouth. ity of ORAL) 03:04: [place] [id number] Medical Branch traMADOL 50 2017-0 Yes 50mg Take 1 Univ ers mg tablet 5-05 tablet by ity o f 00:00: mouth 00 every 6 Medical (six) Branch hours as needed for Pain unrelieved by non-narcot ic analgesics . phenazopyri 2017-0 Yes 200mg Take 1 Uni vers dine 200 mg 5-05 tablet by ity of tablet 00:00: mouth 3 (three) Medical times Branch daily. doxycycline 2017-0 Yes 100mg Take 1 Uni vers 100 mg 5-05 capsule by ity of capsule 00:00: mouth 2 (two) Medical times Branch daily. traMADOL 50 2017-0 Yes 50mg Take 1 Univ ers mg tablet 5-05 tablet by ity o f 00:00: mouth [place] 00 every 6 Medical (six) Branch hours as needed for Pain unrelieved by non-narcot ic analgesics . phenazopyri 2017-0 Yes 200mg Take 1 Uni vers dine 200 mg 5-05 tablet by ity of tablet 00:00: mouth 3 (three) Medical times Branch daily. doxycycline 2017-0 Yes 100mg Take 1 Uni vers 100 mg 5-05 capsule by ity of capsule 00:00: mouth 2 (two) Medical times Branch daily. traMADOL 50 2017-0 Yes 50mg Take 1 Univ ers mg tablet 5-05 tablet by ity o f 00:00: mouth 00 every 6 Medical (six) Branch hours as needed for Pain unrelieved by non-narcot ic analgesics . phenazopyri 2017-0 Yes 200mg Take 1 Uni vers dine 200 mg 5-05 tablet by ity of tablet 00:00: mouth 3 (three) Medical times Branch daily. doxycycline 2017-0 Yes 100mg Take 1 Uni vers 100 mg 5-05 capsule by ity of capsule 00:00: mouth 2 (two) Medical times Branch daily. Vital Signs Vital Name Observation Time Observation Value Comments Source Systolic blood 2020-03-03 22:13:00 88 mm[Hg] Univer sity of pressure [facility] Diastolic blood 2020-03-03 22:13:00 49 [facility]Hg[facility] 22:13:00 69 /min [facility] [place] [facility] Respiratory rate 2020-03-03 22:13:00 10 /min [facility] [place] [facility] Oxygen saturation in 2020-03-03 22:13:00 94 /min University of Arterial blood by [facility] Pulse oximetry Branch Body temperature 2020-03-03 19:47:00 37.39 Halima [facility] [place] [facility] Body height 2020-03-03 19:47:00 170.2 cm [facility] [place] [facility] Body weight 2020-03-03 19:47:00 122.471 kg [facility] [place] [facility] BMI 2020-03-03 19:47:00 42.29 kg/m2 [facility] [place] [facility] Systolic blood 2020-03-03 22:13:00 88 mm[Hg] Univer sity of pressure [place] [facility] Diastolic blood 2020-03-03 22:13:00 49 mm[Hg] Unive rsity of pressure [place] [facility] Heart rate 2020-03-03 22:13:00 69 /min [facility] [place] [facility] Respiratory rate 2020-03-03 22:13:00 10 /min [facility] [place] [facility] Oxygen saturation in 2020-03-03 22:13:00 94 /min University of Arterial blood by [facility] Pulse oximetry Branch Body temperature 2020-03-03 19:47:00 37.39 Halima [facility] [place] [facility] Body height 2020-03-03 19:47:00 170.2 cm [facility] [place] [facility] Body weight 2020-03-03 19:47:00 122.471 kg [facility] [place] [facility] BMI 2020-03-03 19:47:00 42.29 kg/m2 [facility] [place] [facility] Systolic blood 2019-12-28 16:00:00 162 mm[Hg] Univer sity of pressure [place] [facility] Diastolic blood 2019-12-28 16:00:00 99 mm[Hg] Unive rsity of pressure [place] [facility] Heart rate 2019-12-28 16:00:00 80 /min [facility]i ty [facility] [place] [facility] Respiratory rate 2019-12-28 16:00:00 20 /min Univ [facility] [place] [facility] Oxygen saturation in 2019-12-28 16:00:00 98 /min University of Arterial blood by [facility] Pulse oximetry Branch Body temperature 2019-12-28 15:43:00 36.67 Halima [facility] Body weight 2019-12-28 15:43:00 117.935 kg Universi ty [facility] [place] BMI 2019-12-28 15:43:00 40.72 kg/m2 Universi [facility] Systolic blood 2019-12-28 16:00:00 162 mm[Hg] Univer sity of pressure [facility] Diastolic blood 2019-12-28 16:00:00 99 mm[Hg] Unive rsity of [facility] Heart rate 2019-12-28 16:00:00 80 /min Universi ty [facility] Respiratory rate 2019-12-28 16:00:00 20 /min [facility] Oxygen saturation in 2019-12-28 16:00:00 98 /min University of Arterial blood by [facility] Pulse oximetry Branch Body temperature 2019-12-28 15:43:00 36.67 Halima [facility] Body weight 2019-12-28 15:43:00 117.935 kg Universi [facility] BMI 2019-12-28 15:43:00 40.72 kg/m2 [facility] BP Systolic 2022-02-06 08:56:00 138 mm[Hg] BP Diastolic 2022-02-06 08:56:00 89 mm[Hg] Weight Measured 2022-02-06 08:56:00 236.60 pounds Height Measured 2022-02-06 08:56:00 67.00 inches Body Temperature 2022-02-06 08:56:00 98.30 degrees Heart Rate 2022-02-06 08:56:00 125.00 /min Respiratory Rate 2022-02-06 08:56:00 BP Systolic 2022-02-05 09:44:00 133 mm[Hg] BP Diastolic 2022-02-05 09:44:00 96 mm[Hg] Weight Measured 2022-02-05 09:44:00 238.00 pounds Height Measured 2022-02-05 09:44:00 67.00 inches Body Temperature 2022-02-05 09:44:00 98.30 degrees Heart Rate 2022-02-05 09:44:00 95.00 /min Respiratory Rate 2022-02-05 09:44:00 17.00 /min BP Systolic 2022-01-09 09:35:00 156 mm[Hg] BP Diastolic 2022-01-09 09:35:00 96 mm[Hg] Weight Measured 2022-01-09 09:35:00 242.20 pounds Height Measured 2022-01-09 09:35:00 67.00 inches Body Temperature 2022-01-09 09:35:00 98.30 degrees Heart Rate 2022-01-09 09:35:00 81.00 /min Respiratory Rate 2022-01-09 09:35:00 17.00 /min BP Systolic 2021-12-12 09:01:00 156 mm[Hg] BP Diastolic 2021-12-12 09:01:00 88 mm[Hg] Weight Measured 2021-12-12 09:01:00 227.20 pounds Height Measured 2021-12-12 09:01:00 67.00 inches Body Temperature 2021-12-12 09:01:00 98.00 degrees Heart Rate 2021-12-12 09:01:00 87.00 /min Respiratory Rate 2021-12-12 09:01:00 18.00 /min BP Systolic 2021-11-14 08:45:00 127 mm[Hg] BP Diastolic 2021-11-14 08:45:00 79 mm[Hg] Weight Measured 2021-11-14 08:45:00 227.80 pounds Height Measured 2021-11-14 08:45:00 67.00 inches Body Temperature 2021-11-14 08:45:00 98.30 degrees Heart Rate 2021-11-14 08:45:00 80.00 /min Respiratory Rate 2021-11-14 08:45:00 17.00 /min BP Systolic 2021-10-17 08:58:00 144 mm[Hg] BP Diastolic 2021-10-17 08:58:00 86 mm[Hg] Weight Measured 2021-10-17 08:58:00 238.00 pounds Height Measured 2021-10-17 08:58:00 67.00 inches Body Temperature 2021-10-17 08:58:00 98.20 degrees Heart Rate 2021-10-17 08:58:00 98.20 /min Respiratory Rate 2021-10-17 08:58:00 17.00 /min BP Systolic 2021-09-19 09:45:00 158 mm[Hg] BP Diastolic 2021-09-19 09:45:00 100 mm[Hg] Weight Measured 2021-09-19 09:45:00 252.60 pounds Height Measured 2021-09-19 09:45:00 67.00 inches Body Temperature 2021-09-19 09:45:00 98.00 degrees Heart Rate 2021-09-19 09:45:00 98.00 /min Respiratory Rate 2021-09-19 09:45:00 16.00 /min BP Systolic 2021-09-05 14:48:00 129 mm[Hg] BP Diastolic 2021-09-05 14:48:00 84 mm[Hg] Weight Measured 2021-09-05 14:48:00 263.60 pounds Height Measured 2021-09-05 14:48:00 67.00 inches Body Temperature 2021-09-05 14:48:00 98.00 degrees Heart Rate 2021-09-05 14:48:00 98.00 /min Respiratory Rate 2021-09-05 14:48:00 17.00 /min BP Systolic 2021-08-21 09:44:00 148 mm[Hg] BP Diastolic 2021-08-21 09:44:00 87 mm[Hg] Weight Measured 2021-08-21 09:44:00 255.00 pounds Height Measured 2021-08-21 09:44:00 67.00 inches Body Temperature 2021-08-21 09:44:00 98.00 degrees Heart Rate 2021-08-21 09:44:00 78.00 /min Respiratory Rate 2021-08-21 09:44:00 17.00 /min BP Systolic 2021-08-06 15:05:00 147 mm[Hg] BP Diastolic 2021-08-06 15:05:00 92 mm[Hg] Weight Measured 2021-08-06 15:05:00 263.80 pounds Height Measured 2021-08-06 15:05:00 67.00 inches Body Temperature 2021-08-06 15:05:00 98.00 degrees Heart Rate 2021-08-06 15:05:00 81.00 /min Respiratory Rate 2021-08-06 15:05:00 16.00 /min Procedures Procedure Date / Time Performed Performing Clinician [facility] e CT ABDOMEN PELVIS W 2020-03-03 21:12:00 [facility] LIPASE 2020-03-03 20:08:00 Loulou Kumar [facility] HEPATIC FUNCTION PANEL 2020-03-03 20:08:00 [facility]oul[facility] [place] [id number] (ALB,T.PRO,BILI T,BU/BC,ALT,AST,ALK PHOS) BASIC METABOLIC PANEL 2020-03-03 20:08:00 Loulou Kumar [facility] [place] (NA, K, CL, CO2, Medical Branch GLUCOSE, BUN, CREATININE, CA) CBC WITH DIFF 2020-03-03 20:08:00 Loulou Kumar [facility] URINALYSIS 2020-03-03 20:08:00 Loulou Kumar [facility] NOTICE OF PRIVACY 2020-03-03 19:32:21 Doctor Unassigned, No [facility] Name Medical Branch CONSENT/REFUSAL FOR 2020-03-03 19:32:03 Doctor Unassigned, No [facility] [place] DIAGNOSIS AND Name Medical Branch TREATMENT NOTICE OF PRIVACY 2019-12-28 15:34:16 Doctor Unassigned, No [facility] Name Medical Branch CONSENT/REFUSAL FOR 2019-12-28 15:33:53 Doctor Unassigned, No [facility] [place] DIAGNOSIS AND Name Medical Branch TREATMENT Plan of Care Planned Activity Planned Date Details Comments Source Goal Plan of Care Note [code = 16878-8] Goal Plan of Care Note [code = 68798-4] Goal Plan of Care Note [code = 80239-7] Goal Plan of Care Note [code = 59421-7] Goal Plan of Care Note [code = 35428-7] Goal Plan of Care Note [code = 97743-4] Goal Plan of Care Note [code = 23586-7] Goal Plan of Care Note [code = 85334-1] Goal Plan of Care Note [code = 50267-3] Goal Plan of Care Note [code = 24133-0] Goal Plan of Care Note [code = 90058-0] Goal Plan of Care Note [code = 57253-2] Goal Plan of Care Note [code = 90773-5] Goal Plan of Care Note [code = 34075-8] Goal Plan of Care Note [code = 78397-9] Goal Plan of Care Note [code = 96543-2] Goal Plan of Care Note [code = 68344-8] Goal Plan of Care Note [code = 41466-9] Goal Plan of Care Note [code = 56234-8] Goal Plan of Care Note [code = 47855-1] Goal Plan of Care Note [code = 99067-5] Goal Plan of Care Note [code = 09876-1] Goal Plan of Care Note [code = 29082-4] Goal Plan of Care Note [code = 07132-2] Goal Plan of Care Note [code = 75817-8] Goal Plan of Care Note [code = 99264-3] Goal Plan of Care Note [code = 98774-9] Goal Plan of Care Note [code = 01047-1] Goal Plan of Care Note [code = 60079-3] Goal Plan of Care Note [code = 52394-2] Goal Plan of Care Note [code = 21024-2] Goal Plan of Care Note [code = 34003-5] Goal Plan of Care Note [code = 48889-0] Goal Plan of Care Note [code = 44253-9] Goal Plan of Care Note [code = 17348-5] Goal Plan of Care Note [code = 41169-5] Goal Plan of Care Note [code = 78051-9] Encounters Start End Encounter Admission Attending Care Care Encounter Source Date/Time Date/Time Type Type Clinicians Facility Department ID 2022-07-24 2022-07-24 Outpatient [facility] SFA [id number] Jonathan 09:28:11 09:28:11 0315 F Hardik 2022-06-26 2022-06-26 Outpatient SFA SFA [id number] Jonathan 10:20:38 10:20:38 0215 F Hardik 2022-05-29 2022-05-29 Outpatient SFA SFA [id number] 023 Jonathan 08:43:54 08:43:54 0118 F Hardik 2022-04-30 2022-04-30 Outpatient SFA SFA [id number] 022 Jonathan 09:33:20 09:33:20 1220 F [place] 2022-04-03 2022-04-03 Outpatient [facility] [id number] Jonathan 09:26:42 09:26:42 1123 F [place] 2022-03-06 2022-03-06 Outpatient [facility] [id number] 022 Jonathan 08:40:43 08:40:43 1026 F [place]aut 2022-02-05 2022-02-05 Outpatient [id number] 00:00:00 00:00:00 Visit [id number] 2020-03-03 2020-03-03 Emergency [facility] 1.2.840.114 [id number] 14:42:00 18:14:00 Loulou Garcia 350.1.13.10 [place] 4.2.7.2.686 [place] [id number] [facility] 2020-03-03 2020-03-03 Emergency [facility] 1.2.840.114 [id number] [facility] 14:42:00 18:14:00 Loulou Garcia 350.1.13.10 ity of [place] 4.2.7.2.686 [facility] [id number] [address] 2020-03-03 2020-03-03 Emergency X [email or web address] ERT [id number] Univers 14:34:00 14:34:00 ity of [facility] 2020-03-03 2020-03-03 Orders Doctor MCGUIRE 1.2.840.114 [id number] 00:00:00 00:00:00 Only Unassigned, ESTEVAN 350.1.13.10 [place] [facility] 4.2.7.2.68 [id number] 2020-03-03 2020-03-03 Orders Doctor MCGUIRE 1.2.840.114 [id number] [facility] 00:00:00 00:00:00 Only Unassigned, ESTEVAN 350.1.13.10 ity of [place] [facility] 4.2.7.2.686 Juan [id number] [address] 2019-12-28 2019-12-28 Emergency [facility] 1.2.840.114 [id number] 10:37:00 11:44:00 Loulou Garcia 350.1.13.10 [place] 4.2.7.2.686 [place] [id number] [facility] 2019-12-28 2019-12-28 Emergency [facility] 1.2.840.114 [id number] [facility] 10:37:00 11:44:00 Loulou Garcia 350.1.13.10 ity [facility] 4.2.7.2.686 [facility] [id number] [facility] [address] [place] 2019-12-28 2019-12-28 Emergency X [facility] ERT [id number] Univers 10:37:00 10:37:00 LOULOU [facility] Results Test Description Test Time Test Comments Results Result Comments Source CBC W/AUTO DIFF WITH PLATELETS 2022-02-06 10:44:52 Test Item Value Reference Range Interpretation Comme nts WBC (test code = 1001) 7.6 K/UL 3.5-11.0 RBC (test code = 1002) 4.66 M/UL 3.80-5.40 HEMOGLOBIN (test code = 1003) 13.7 G/DL 11.5-15.5 HEMATOCRIT (test code = 1004) 40.9 % 34.0-45.0 MCV (test code = 1005) 87.8 fL 80.0-99.0 MCH (test code = 1006) 29.4 PG 25.0-33.0 MCHC (test code = 1007) 33.5 G/DL 31.0-36.0 RDW (test code = 1038) 13.8 % 11.5-15.0 NEUTROPHILS (test code = 57.4 % 1008) LYMPHOCYTES (test code = 31.5 % 1010) MONOCYTES (test code = 1011) 5.5 % EOSINOPHILS (test code = 4.5 % 1012) BASOPHILS (test code = 1013) 0.8 % IMMATURE GRANULOCYTES (test 0.3 % code = 1036) NUCLEATED RBCS (test code = 0.0 /100 WBC'S See_Comment [Automated message] The 1065[employer] system which ge nerated this result transmit konstantin reference range : 0.0. The reference range was not used to interpr et this result as richardson l/abnormal. PLATELET COUNT (test code = 211 K/UL 429-947 8993) ABSOLUTE NEUTROPHILS (test 4.36 K/UL 1.50-7.50 code = 1066) ABSOLUTE LYMPHOCYTES (test 2.39 K/UL 1.00-4.00 code = 1067) ABSOLUTE MONOCYTES (test code 0.42 K/UL 0.20-1.00 = 1068) ABSOLUTE EOSINOPHILS (test 0.34 K/UL 0.00-0.50 code = 1040) ABSOLUTE BASOPHILS (test code 0.06 K/UL 0.00-0.20 = 1069) ABS IMMATURE GRANULOCYTES 0.02 K/UL 0.00-0.10 (test code = 1020) ABS NUCLEATED RBCS (test code 0.00 K/UL 0.00-0.11 = 97152) HEMOGLOBIN [id number] 08:54:18 Test Item Value Reference Range Interpretation Comments HEMOGLOBIN A1c (test 9.2 % 4.2-5.6 H [employer]IC AN DIABETES code = 35059) ASSOCIATION IDELINES FOR HGB A1C: PREDIABETES/INC REASED RISK . . . . . . . 5.7 -6.4% DIAGNOSIS OF DI ABETES . . . . . . . . . >=6 .5% WITH CONFIRMATION OR APPROPRIATE SYMPTOMS NOTE: ASSAY MAY BE AFFECTED BY HEMOGLOBINOPATH IES (SICKLE CELL ANEMIA, S- C DISEASE, OTHERS) OR ANURAG FICIALLY LOWERED BY DECR EASED RED CELL SURVIVAL ( HEMOLYTIC ANEMIAS, BLOOD LOSS, ETC.). CONSIDER ALTERN ATE TESTING OR LABORATORY C ONSULTATION. COMPREHENSIVE METABOLIC [id number] 04:39:34 Test Item Value Reference Range Interpretation Comments GLUCOSE (test code = 133 MG/DL 70-99 H 2216) BUN (test code = 16 MG/DL 10-29) CREATININE (test 0.84 MG/DL 0.60-1.30 code = 221) eGFR (2020 CKD-EPI) 88 ML/MIN/1.73 >60 (test code = 53802) CALC BUN/CREAT (test 19 RATIO 11-06 code = 2235) SODIUM (test code = 142 MEQ/L 249-124 1996) POTASSIUM (test code 3.6 MEQ/L 3.5-5.4 = 2228) CHLORIDE (test code 102 MEQ/L 95-107 = 2215) CARBON DIOXIDE (test 27 MEQ/L 19-31 code = 2206) CALCIUM (test code = 10.0 MG/DL 8.5-10.5 2208) PROTEIN, TOTAL (test 8.3 G/DL 6.1-8.3 code = 2229) ALBUMIN (test code = 4.6 G/DL 3.5-5.2 2200) CALC GLOBULIN (test 3.7 G/DL 1.9-3.7 code = 2240) CALC A/G RATIO (test 1.2 RATIO 1.0-2.6 code = 2234) BILIRUBIN, TOTAL 0.5 MG/DL See_Comment [Automated message] (test code = 220) The syste m which generated this result transmit konstantin reference range : <=1.2. The refe rence range was not u sed to interpret th is result as normal/abnormal . ALKALINE PHOSPHATASE 91 U/L 40-113 (test code = 220) AST (test code = 52 U/L 9-40 H 2217) ALT (test code = 56 U/L 5-40 H 2218) LIPID [id number] 04:39:34 Test Item Value Reference Range Interpretation Comments CHOLESTEROL (test 248 MG/DL <200 H code = 2210) TRIGLYCERIDES (test 237 MG/DL <150 H code = 2232) HDL CHOLESTEROL (test 33 MG/DL >39 L code = 2220) CALC LDL CHOL (test 175 MG/DL <100 H NOTE: C ALCULATED LDL code = 2237) IS BASED ON FARIHA-HUSAIN METHOD WHICHINCLUDES ADJUSTABLE TRIGLYCERIDE:VL DL CHOLESTEROL RAT IO.THIS FACTOR VARIES B Y MEASURED TRIGLY CERIDE AND NON-HDLCHOL ESTEROL CONCENTRATIONS WITH INCREASED CALCU LATED LDL SEENIN HIGH ER TRIGLYCERIDE OR LOWER NON-HDL SPECIME NS. FOR MOREINFORMATION , SEE CLIENT ANNOUNCE MENT AT [email or web address] [email or web address] RATIO LDL/HDL 5.30 RATIO <3.22 H UNLESS O THERWISE (test code = 2238) INDICATED , ALL TESTING PERFORMED [facility], [facility]. [address] [facility] [place] [address] [facility] DIRECTOR: FLORA TREADWELL M.D. CLIA NUMBER [id number] [facility] ACCREDITATION N O. [id number] COMPREHENSIVE METABOLIC [id number] 00:00:00 Test Item Value Reference Range Interpretation Comments GLUCOSE (test code = 2217) 133 MG/DL BUN (test code = 2208) 16 MG/DL CREATININE (test code = 2214) 0.84 MG/DL eGFR (2020 CKD-EPI) (test code 88 ML/MIN/1.73 = 09088) CALC BUN/CREAT (test code = 19 RATIO 2235) SODIUM (test code = 2231) 142 MEQ/L POTASSIUM (test code = 2228) 3.6 MEQ/L CHLORIDE (test code = 2215) 102 MEQ/L CARBON DIOXIDE (test code = 27 MEQ/L 220) CALCIUM (test code = 2209) 10.0 MG/DL PROTEIN, TOTAL (test code = 8.3 G/DL 2228) ALBUMIN (test code = 2201) 4.6 G/DL CALC GLOBULIN (test code = 3.7 G/DL 2240) CALC A/G RATIO (test code = 1.2 RATIO 4) BILIRUBIN, TOTAL (test code = 0.5 MG/DL 2206) ALKALINE PHOSPHATASE (test 91 U/L code = 2204) AST (test code = 2218) 52 U/L ALT (test code = 2219) 56 U/L COMPREHENSIVE METABOLIC [id number] 00:00:00 Test Item Value Reference Range Interpretation Comments GLUCOSE (test code = 2217) 133 MG/DL BUN (test code = 2208) 16 MG/DL CREATININE (test code = 2214) 0.84 MG/DL eGFR (2020 CKD-EPI) (test code 88 ML/MIN/1.73 = 40126) CALC BUN/CREAT (test code = 19 RATIO 2235) SODIUM (test code = 2231) 142 MEQ/L POTASSIUM (test code = 2228) 3.6 MEQ/L CHLORIDE (test code = 2215) 102 MEQ/L CARBON DIOXIDE (test code = 27 MEQ/L 2206) CALCIUM (test code = 2209) 10.0 MG/DL PROTEIN, TOTAL (test code = 8.3 G/DL 2228) ALBUMIN (test code = 2201) 4.6 G/DL CALC GLOBULIN (test code = 3.7 G/DL 2240) CALC A/G RATIO (test code = 1.2 RATIO 2234) BILIRUBIN, TOTAL (test code = 0.5 MG/DL 2206) ALKALINE PHOSPHATASE (test 91 U/L code = 2204) AST (test code = 2218) 52 U/L ALT (test code = 2219) 56 U/L LIPID [id number] 00:00:00 Test Item Value Reference Range Interpretation Comments CHOLESTEROL (test code = 2210) 248 MG/DL TRIGLYCERIDES (test code = 2232) 237 MG/DL HDL CHOLESTEROL (test code = 2220) 33 MG/DL CALC LDL CHOL (test code = 2237) 175 MG/DL RISK RATIO LDL/HDL (test code = 5.30 RATIO 2238) LIPID [id number] 00:00:00 Test Item Value Reference Range Interpretation Comments CHOLESTEROL (test code = 2210) 248 MG/DL TRIGLYCERIDES (test code = 2232) 237 MG/DL HDL CHOLESTEROL (test code = 2220) 33 MG/DL CALC LDL CHOL (test code = 2237) 175 MG/DL RISK RATIO LDL/HDL (test code = 5.30 RATIO 2238) HEMOGLOBIN [id number] 00:00:00 Test Item Value Reference Range Interpretation Comments HEMOGLOBIN A1c (test code = 09365) 9.2 % HEMOGLOBIN [id number] 00:00:00 Test Item Value Reference Range Interpretation Comments HEMOGLOBIN A1c (test code = 06193) 9.2 % HEMOGLOBIN [id number] 00:00:00 Test Item Value Reference Range Interpretation Comments HEMOGLOBIN A1c (test code = 47262) 9.2 % CBC W/AUTO [id number] 00:00:00 Test Item Value Reference Range Interpretation Comments WBC (test code = 1001) 7.6 K/UL RBC (test code = 1002) 4.66 M/UL HEMOGLOBIN (test code = 1003) 13.7 G/DL HEMATOCRIT (test code = 1004) 40.9 % MCV (test code = 1005) 87.8 fL MCH (test code = 1006) 29.4 PG MCHC (test code = 1007) 33.5 G/DL RDW (test code = 1038) 13.8 % NEUTROPHILS (test code = 1008) 57.4 % LYMPHOCYTES (test code = 1010) 31.5 % MONOCYTES (test code = 1011) 5.5 % EOSINOPHILS (test code = 1012) 4.5 % BASOPHILS (test code = 1013) 0.8 % IMMATURE GRANULOCYTES (test 0.3 % code = 1036) NUCLEATED RBCS (test code = 0.0 /100WBC'S 1065) PLATELET COUNT (test code = 211 K/UL 1015) ABSOLUTE NEUTROPHILS (test code 4.36 K/UL = 1066) ABSOLUTE LYMPHOCYTES (test code 2.39 K/UL = 1067) ABSOLUTE MONOCYTES (test code = 0.42 K/UL 1068) ABSOLUTE EOSINOPHILS (test code 0.34 K/UL = 1040) ABSOLUTE BASOPHILS (test code = 0.06 K/UL 1069) ABS IMMATURE GRANULOCYTES (test 0.02 K/UL code = 1020) ABS NUCLEATED RBCS (test code = 0.00 K/UL 31774) CBC W/AUTO [id number] 00:00:00 Test Item Value Reference Range Interpretation Comments WBC (test code = 1001) 7.6 K/UL RBC (test code = 1002) 4.66 M/UL HEMOGLOBIN (test code = 1003) 13.7 G/DL HEMATOCRIT (test code = 1004) 40.9 % MCV (test code = 1005) 87.8 fL MCH (test code = 1006) 29.4 PG MCHC (test code = 1007) 33.5 G/DL RDW (test code = 1038) 13.8 % NEUTROPHILS (test code = 1008) 57.4 % LYMPHOCYTES (test code = 1010) 31.5 % MONOCYTES (test code = 1011) 5.5 % EOSINOPHILS (test code = 1012) 4.5 % BASOPHILS (test code = 1013) 0.8 % IMMATURE GRANULOCYTES (test 0.3 % code = 1036) NUCLEATED RBCS (test code = 0.0 /100WBC'S 1065) PLATELET COUNT (test code = 211 K/UL 1015) ABSOLUTE NEUTROPHILS (test code 4.36 K/UL = 1066) ABSOLUTE LYMPHOCYTES (test code 2.39 K/UL = 1067) ABSOLUTE MONOCYTES (test code = 0.42 K/UL 1068) ABSOLUTE EOSINOPHILS (test code 0.34 K/UL = 1040) ABSOLUTE BASOPHILS (test code = 0.06 K/UL 1069) ABS IMMATURE GRANULOCYTES (test 0.02 K/UL code = 1020) ABS NUCLEATED RBCS (test code = 0.00 K/UL 26918) CBC W/AUTO [id number] 00:00:00 Test Item Value Reference Range Interpretation Comments WBC (test code = 1001) 7.6 K/UL RBC (test code = 1002) 4.66 M/UL HEMOGLOBIN (test code = 1003) 13.7 G/DL HEMATOCRIT (test code = 1004) 40.9 % MCV (test code = 1005) 87.8 fL MCH (test code = 1006) 29.4 PG MCHC (test code = 1007) 33.5 G/DL RDW (test code = 1038) 13.8 % NEUTROPHILS (test code = 1008) 57.4 % LYMPHOCYTES (test code = 1010) 31.5 % MONOCYTES (test code = 1011) 5.5 % EOSINOPHILS (test code = 1012) 4.5 % BASOPHILS (test code = 1013) 0.8 % IMMATURE GRANULOCYTES (test 0.3 % code = 1036) NUCLEATED RBCS (test code = 0.0 /100WBC'S 1065) PLATELET COUNT (test code = 211 K/UL 1015) ABSOLUTE NEUTROPHILS (test code 4.36 K/UL = 1066) ABSOLUTE LYMPHOCYTES (test code 2.39 K/UL = 1067) ABSOLUTE MONOCYTES (test code = 0.42 K/UL 1068) ABSOLUTE EOSINOPHILS (test code 0.34 K/UL = 1040) ABSOLUTE BASOPHILS (test code = 0.06 K/UL 1069) ABS IMMATURE GRANULOCYTES (test 0.02 K/UL code = 1020) ABS NUCLEATED RBCS (test code = 0.00 K/UL 62895) BUPRENORPHINE AND [id number] 18:30:21 Test Item Value Reference Interpretation Comments Range NORBUPRENORPHINE <1.0 ng/mL (test code = 03936) BUPRENORPHINE (test <1.0 ng/mL INTERPRE TIVE INFORMATION: code = 27250) Buprenorphine and Metabolites, Se rum or Plasma, QuantitativeMet hodology: Quantitative Li quid Chromatography- Tandem Mass Spectromet ryPositive cutoff: 1 ng/mL For medical purpose s only; not valid for f orensic use.The presenc e of metabolite(s) w ithout parent drug is common and may indicate us e of parent drug dur ing the prior week. The absence of expected andrwes g(s) and/or drug met abolite(s) may indicate non-compliance, inappropriate t iming of specimen collec tion relative to andrews g administration, poor drug absorption, or limitations of testing. The concentrati on value must be greater than or equal to the cu toff to be reported as pos itive. Interpretive qu estions should be direc konstantin to the laboratory.This test was developed and i ts performance characteristics determined by [facility]. I t has not been cleared or approved by the US Food and Drug Administration. This test was performed i n a CLIA certified labor atory and is intended for clinical purposes. TESTI NG PERFORMED AT [facility], [place] [address] [address] [place]. [id number] CLIA N O. [id number] BUPRENORPHINE AND [id number] 00:00:00 Test Item Value Reference Range Interpretation Comments NORBUPRENORPHINE (test code = <1.0 ng/mL 78005) BUPRENORPHINE (test code = 49628) <1.0 ng/mL BUPRENORPHINE AND [id number] 00:00:00 Test Item Value Reference Range Interpretation Comments NORBUPRENORPHINE (test code = <1.0 ng/mL 64345) BUPRENORPHINE (test code = 83060) <1.0 ng/mL DRUG SCREEN, SERUM, NO [id number] 09:30:24 Test Item Value Reference Interpretation Comments Range AMPHETAMINES (test Negative code = 22605) BARBITURATES (test Negative code = 38203) BENZODIAZEPINES Negative (test code = 77671) COCAINE METABOLITE Negative (test code = 65424) METHADONE (test Negative code = 00949) OPIATES (test code Negative = 906190) PHENCYCLIDINE (test Negative code = 758975) PROPOXYPHENE (test Negative code = 048945) THC (CANNABIS) Positive (test code = 039606) ETHANOL (test code Negative Screen D ecision Limits Drug = 813397) Analyzed Screen Units - ----- ----- Amphetamine 500 ng/mL Barbiturate 150 ng/mL Benzodiazepines 100 ng/mL Cocaine 150 ng/ mL Ethanol 10 mg/dL Toxic Blo od Ethanol >300 mg/dL Meth adone 150 ng/mL Opiates 150 ng/mL Phencyclidine 1 2 ng/mL Propoxyphene 15 0 ng/mL THC (Cannabis) 50 n g/mL A positive immuno assay result on a serum drug screen isconsidered pr esumptive evidence for th e presence of thedrug or its metabolite. Since some immu noassay testsdetect onl y inactive metabolites and others are sensitiveto carolyn y low drug levels, positiv e results may not correlatewi th the patient's physi ological state. For conf irmation of positive immuno assay results by analternate method or for consultation, ricco castro contact thelaboratory. If applicable, any drug confir mation testing reportedhere wa s developed and the perform ance characteristics determined by [facility] aboratory. This confirmati on testing has not been cleare d or approvedby the FDA. The laboratory is r egulated under CLIA asqualifie d to perform high-complexity testing. This testis used for patient testing purpose s. It should not beregarded as investigational or for research. UNLES S OTHERWISE INDICATED, ALL TESTING PERFORMED [facility] [address] [place] [address] LABORATORY DIRE CTOR: FLORA TREADWELL M.D. CLIA NUMBER [id number] [place]. [id number] DRUG SCREEN, [id number] 00:00:00 Test Item Value Reference Range Interpretation Comments AMPHETAMINES (test code = 21692) Negative BARBITURATES (test code = 88729) Negative BENZODIAZEPINES (test code = 20909) Negative COCAINE METABOLITE (test code = Negative 71715) METHADONE (test code = 54123) Negative OPIATES (test code = 623174) Negative PHENCYCLIDINE (test code = 716458) Negative PROPOXYPHENE (test code = 541185) Negative THC (CANNABIS) (test code = 250898) Positive ETHANOL (test code = 868034) Negative DRUG SCREEN, [id number] 00:00:00 Test Item Value Reference Range Interpretation Comments AMPHETAMINES (test code = 84266) Negative BARBITURATES (test code = 12845) Negative BENZODIAZEPINES (test code = 44271) Negative COCAINE METABOLITE (test code = Negative 83604) METHADONE (test code = 22864) Negative OPIATES (test code = 576203) Negative PHENCYCLIDINE (test code = 757905) Negative PROPOXYPHENE (test code = 234902) Negative THC (CANNABIS) (test code = 103830) Positive ETHANOL (test code = 674872) Negative CULTURE, [id number] 00:00:00 Test Item Value Reference Range Interpretation Comments CULTURE, ROUTINE (test SPECIMEN NUMBER: code = 51649) [id number] CULTURE, [id number] 00:00:00 Test Item Value Reference Range Interpretation Comments CULTURE, ROUTINE (test SPECIMEN NUMBER: code = 45539) [id number] CULTURE, [id number] 00:00:00 Test Item Value Reference Range Interpretation Comments CULTURE, ROUTINE (test SPECIMEN NUMBER: code = 97229) [id number] HEMOGLOBIN [id number] 00:00:00 Test Item Value Reference Range Interpretation Comments HEMOGLOBIN A1c (test code = 49669) 11.3 % HEMOGLOBIN [id number] 00:00:00 Test Item Value Reference Range Interpretation Comments HEMOGLOBIN A1c (test code = 40323) 11.3 % HEMOGLOBIN [id number] 00:00:00 Test Item Value Reference Range Interpretation Comments HEMOGLOBIN A1c (test code = 53703) 11.3 % DRUG SCREEN, [id number] 00:00:00 Test Item Value Reference Range Interpretation Comments AMPHETAMINES (test code = 63953) Negative BARBITURATES (test code = 90084) Negative BENZODIAZEPINES (test code = 59406) Negative COCAINE METABOLITE (test code = Negative 46992) METHADONE (test code = 97564) Negative OPIATES (test code = 076055) Negative PHENCYCLIDINE (test code = 197829) Negative PROPOXYPHENE (test code = 063884) Negative THC (CANNABIS) (test code = 375490) Positive ETHANOL (test code = 965502) Negative DRUG SCREEN, [id number] 00:00:00 Test Item Value Reference Range Interpretation Comments AMPHETAMINES (test code = 96782) Negative BARBITURATES (test code = 41179) Negative BENZODIAZEPINES (test code = 99619) Negative COCAINE METABOLITE (test code = Negative 47407) METHADONE (test code = 74043) Negative OPIATES (test code = 822776) Negative PHENCYCLIDINE (test code = 762235) Negative PROPOXYPHENE (test code = 564441) Negative THC (CANNABIS) (test code = 972229) Positive ETHANOL (test code = 483929) Negative BUPRENORPHINE AND [id number] 00:00:00 Test Item Value Reference Range Interpretation Comments NORBUPRENORPHINE (test code = 2.5 ng/mL 27802) BUPRENORPHINE (test code = 62117) <1.0 ng/mL BUPRENORPHINE AND [id number] 00:00:00 Test Item Value Reference Range Interpretation Comments NORBUPRENORPHINE (test code = 2.5 ng/mL 61146) BUPRENORPHINE (test code = 51402) <1.0 ng/mL CULTURE, [id number] 00:00:00 Test Item Value Reference Range Interpretation Comments CULTURE, URINE (test SPECIMEN NUMBER: code = 91230) [id number] CULTURE, [id number] 00:00:00 Test Item Value Reference Range Interpretation Comments CULTURE, URINE (test SPECIMEN NUMBER: code = 05757) [id number] GC, AMPLIFIED, [id number] 00:00:00 Test Item Value Reference Range Interpretation Comments GONORRHEA, NAAT (test code = 57327) NEGATIVE GC, AMPLIFIED, [id number] 00:00:00 Test Item Value Reference Range Interpretation Comments GONORRHEA, NAAT (test code = 42255) NEGATIVE SEDIMENTATION [id number] 00:00:00 Test Item Value Reference Range Interpretation Comments SEDIMENTATION RATE (test code = 31 MM/HOUR 1017) SEDIMENTATION [id number] 00:00:00 Test Item Value Reference Range Interpretation Comments SEDIMENTATION RATE (test code = 31 MM/HOUR 1017) C-REACTIVE [id number] 00:00:00 Test Item Value Reference Range Interpretation Comments C-REACTIVE PROTEIN (test code = 0.5 MG/DL 3513) C-REACTIVE [id number] 00:00:00 Test Item Value Reference Range Interpretation Comments C-REACTIVE PROTEIN (test code = 0.5 MG/DL 3513) URIC [id number] 00:00:00 Test Item Value Reference Range Interpretation Comments URIC ACID (test code = 2233) 4.8 MG/DL URIC [id number] 00:00:00 Test Item Value Reference Range Interpretation Comments URIC ACID (test code = 2233) 4.8 MG/DL VITAMIN D, 25 [id number] 00:00:00 Test Item Value Reference Range Interpretation Comments VITAMIN D, 25 OH (test code = 4958) 22 NG/ML VITAMIN D, 25 [id number] 00:00:00 Test Item Value Reference Range Interpretation Comments VITAMIN D, 25 OH (test code = 4958) 22 NG/ML RHEUMATOID FACTOR, [id number] 00:00:00 Test Item Value Reference Range Interpretation Comments RHEUMATOID FACTOR, QUANT (test code <10 IU/ML = 3502) RHEUMATOID FACTOR, [id number] 00:00:00 Test Item Value Reference Range Interpretation Comments RHEUMATOID FACTOR, QUANT (test code <10 IU/ML = 3502) RHEUMATOID FACTOR, [id number] 00:00:00 Test Item Value Reference Range Interpretation Comments RHEUMATOID FACTOR, QUANT (test code <10 IU/ML = 3502) NICOLA (ANTI-NUCLEAR AB) WITH REFLEX [id number] 00:00:00 Test Item Value Reference Range Interpretation Comments ANTI-NUCLEAR ANTIBODIES (test code = NEGATIVE 3506) NICOLA (ANTI-NUCLEAR AB) WITH REFLEX [id number] 00:00:00 Test Item Value Reference Range Interpretation Comments ANTI-NUCLEAR ANTIBODIES (test code = NEGATIVE 3506) CT ABDOMEN PELVIS W [id number] 22:50:21Impression: Several mildly dilated left upper quadrant small bowel loops measuring upto 3.3 cm is most likely from ileus secondary to mild acute enteritis. Status post cholecystectomy and hysterectomy.Severe diffuse fatty infiltration throughout the liver. Bilateral renal cysts. Normal appendix. RL 460End of report. Exam: CT Abdomen and Pelvis with Contrast, 03/03/2020 3:00 PM. Ordering Physician: LOULOU KUMAR. History: Abdominal pain, acute, generalized. Technique: CT images of the abdomen and pelvis was obtained withintravenous contrast. ?Coronal and sagittal reconstructed images wereobtained. CT technique and radiation exposure utilized ALARA. Comparison: None. Findings: CT abdomen:Trace dependent subsegmental atelectasis in the right lower lobe. Minimalmosaic attenuation in the remaining lung bases is suggestive of airtrapping. Cardiomegaly. Stomach is mildly distended. Status post cholecystectomy. Severe diffuse fatty infiltration throughout the liver. Liver size isnormal and there is no hepatic mass. Patent portal veins. Spleen, pancreas, and the adrenal glands are unremarkable. Bilateral kidneys have normal caliber. No hydronephrosis or hydroureter. Numerous subcentimeter low-attenuationlesions in both kidneys are too small to characterize. Several bilateralrenal cysts, all of which measure greater than 1 cm. Normal caliber abdominal aorta. Mild calcified and noncalcified plaque inthe abdominal aorta. Enlarged paracaval lymph node proximal to the verna hepatis. No pelvic noringuinal lymphadenopathy. CT pelvis:Several mildly dilated left upper quadrant small bowel loops measuring upto 3.3 cm is most likely from ileus. Fluid-filled dilated and nondilated small bowel loops in the left upperquadrant have mild diffuse circumferential wall thickening which is mostlikely from enteritis. The remaining bowel loops are notdilated. Minimal sigmoid diverticulosis without acute diverticulitis. Portions ofthe rectum and the s igmoid colon are not distended. Normal appendix. No free intraperitoneal air or fluid. Mild diffuse anterior urinary bladder wall thickening is most likely fromunderdistention, please correlate clinically to exclude the possibility ofcystitis. Status post hysterectomy. The bilateral ovaries are not visualized. Several small fat-containing midline infraumbilical and supraumbilicalventral hernias. No acute osseous abnormality. Sclerotic change of the symphysis pubis ismost likely from degenerative change. Mild levoconvex curvature of the lumbar spine. Degenerative changes in thethoracic spine and lumbar spine. [facility], Radiant Results Inft User - 03/03/2020 5:51 PM CDTExam: CT Abdomen and Pelvis with Co ntrast, 03/03/2020 3:00 PM.Ordering Physician: LOULOU KUMAR.History: Abdominal pain, acute, generalized.Technique: CT images of the abdomen and pelvis was obtained withintravenous contrast. Coronal and sagittal reconstructed images wereobtained. CT technique and radiation exposure utilized JOSE.Franky omparison: None.Findings: CT abdomen:Trace dependent subsegmental atelectasis in the right lower lobe. Minimalmosaic attenuation in the remaining lung bases is suggestive of airtrapping.Cardiomegaly.Stomach is mildly distended.Status post cholecystectomy.Severe diffuse fatty infiltration throughout the liver. Liver size isnormal and there is no hepatic mass.Patent portal veins.Spleen, pancreas, and the adrenal glands are unremarkable.Bilateral kidneys have normal caliber.No hydronephrosis or hydroureter. Numerous subcentimeter low-attenuationlesions in both kidneys are too small to characterize. Several bilateralrenal cysts, all of which measure greater than 1 cm.Normal caliber abdominal aorta. Mild calcified and noncalcified plaque inthe abdominal aorta.Enlarged paracaval lymph node proximal to the verna hepatis. No pelvic noringuinal lymphadenopathy. CT pelvis:Several mildly dilated left upperquadrant small bowel loops measuring upto 3.3 cm is most likely from ileus. Fluid-filled dilated andnondilated small bowel loops in the left upperquadrant have mild diffuse circumferential wall thickening which is mostlikely from enteritis.The remaining bowel loops are not dilated. Minimal sigmoid diverticulosis without acute diverticulitis. Portions ofthe rectum and the sigmoid colon are not distended.Normal appendix.No free intraperitoneal air or fluid.Mild diffuse anterior urinary bladder wall th ickening is most likely fromunderdistention, please correlate clinically to exclude the possibility ofcystitis.Status post hysterectomy. The bilateral ovaries are not visualized.Several small fat-containing midline infraumbilical and supraumbilicalventral hernias.No acute osseous abnormality. Sclerotic change of the symphysis pubis ismost likely from degenerative change.Mild levoconvex curvature of the lumbar spine. Degenerative changes in thethoracic spine and lumbar spine. IMPRESSIONImpression: Several mildly dilated left upper quadrant small bowel loops measuring upto 3.3 cm is most likely from ileus secondary to mild acute enteritis.Status post cholecystectomy and hysterectomy.Severe diffuse fatty infiltration throughout the liver.Bilateral renal cysts.Normal appendix.RL 460End of report. [facility] with [id number] 20:50:00 Test Item Value Reference Range Interpretation Comments WBC (test code = See_Comment [Automated 5384-2) message] The sy stem which generated this result transmitted reference range : 4.30 - 11.10 10*3/?L. The reference range was not used to interpret this result as normal/abnormal . RBC (test code = See_Comment [Automated 789-8) message] The sy stem which generated this result transmitted reference range : 3.93 - 5.25 10*6/?L. The reference range was not used to interpret this result as normal/abnormal . HGB (test code = 11.8 g/dL 11.6-15 718-7) HCT (test code = 34.8 % 35.7-45.2 L 4544-3) MCV (test code = 86.8 fL 80.6-95.5 787-2) MCH (test code = 29.4 pg 25.9-32.8 785-6) MCHC (test code = 33.9 g/dL 31.6-35.1 786-4) RDW-SD (test code = 47.0 fL 39-49.9 90207-0) RDW-CV (test code = 14.6 % 12-15.5 788-0) PLT (test code = See_Comment [Automated 777-3) message] The sy stem which generated this result transmitted reference range : 166 - 358 10*3/ ?L. The reference r poppy was not used to interpret this result as normal/abnormal . MPV (test code = 11.9 fL 9.5-12.9 73119-3) NRBC/100 WBC (test See_Comment [Automat ed code = 9781645257) message] The system which generated this result transmitted reference range : 0.0 - 10.0 /100 WBCs. The refer ence range was not u sed to interpret th is result as normal/abnormal . NRBC x10^3 (test code <0.01 See_Comment [Auto mated = 1842282356) message] The s ystem which generated this result transmitted reference range : 10*3/?L. The reference range was not used to interpret this result as normal/abnormal . GRAN MAT (NEUT) % 52.3 % (test code = 770-8) IMM GRAN % (test code 0.70 % = 9751821112) LYMPH % (test code = 34.7 % 736-9) MONO % (test code = 6.2 % 5905-5) EOS % (test code = 5.5 % 713-8) BASO % (test code = 0.6 % 706-2) GRAN MAT x10^3(ANC) 3.78 10*3/uL 1.88-7.09 (test code = 3599226594) IMM GRAN x10^3 (test 0.05 10*3/uL 0-0.06 code = 6286146495) LYMPH x10^3 (test code 2.51 10*3/uL 1.32-3.29 = 731-0) MONO x10^3 (test code 0.45 10*3/uL 0.33-0.92 = 742-7) EOS x10^3 (test code = 0.40 10*3/uL 0.03-0.39 H 711-2) BASO x10^3 (test code 0.04 10*3/uL 0.01-0.07 = 704-7) Lab Interpretation Abnormal (test code = 42373-4) [facility] 20:44:00 Test Item Value Reference Range Interpretation Comments APPEARANCE (test code Clear Clear = 2452427968) COLOR (test code = Yellow Yellow 8800124823) PH (test code = 4.8-8.0 8792660504) SP GRAVITY (test code 1.003-1.030 = 1824611227) GLU U QUAL (test code Normal Normal = 6746461540) BLOOD (test code = Negative Negative 0848097251) KETONES (test code = Negative Negative 2750484477) PROTEIN (test code = Negative Negative 2887-8) UROBILIN (test code = Normal Normal 9039768320) BILIRUBIN (test code = Negative Negative 5151646197) NITRITE (test code = Negative Negative 4228035439) LEUK PALOMA (test code Negative Negative = 7997836719) RBC/HPF (test code = <1 See_Comment [Autom ated message] 3324854945) The system [employer] generated this result transmitted ref erence range: 0 - 3 HP F. The reference range was not used to interpr et this result as normal/abnormal . WBC/HPF (test code = See_Comment [Autom ated message] 1671322834) The system [employer] generated this result transmitted ref erence range: 0 - 5 HP F. The reference range was not used to interpr et this result as normal/abnormal . BACTERIA (test code = Negative Negative 7379650168) SQ EPITH (test code = HPF 6453570099) [facility] (NA, K, CL, CO2, GLUCOSE, BUN, CREATININE, CA)2020-03-03 20:37:00 Test Item Value Reference Range Interpretation Comments NA (test code = 134 mmol/L 135-145 L 7876488685) K (test code = 3.6 mmol/L 3.5-5 2083379148) CL (test code = 99 mmol/L 98-108 7293524903) CO2 TOTAL (test code = 26 mmol/L 23-31 0272905724) AGAP (test code = 2-16 5391798125) BUN (test code = 17 mg/dL 7-23 7323459467) GLUCOSE (test code = 176 mg/dL 70-110 H 0160224911) CREATININE (test code = 0.78 mg/dL 0.5-1.04 5512857945) CALCIUM (test code = 8.9 mg/dL 8.6-10.6 2060099088) eGFR Calculation mL/min/1.73m2 (Non-) (test code = 1515901144) eGFR Calculation mL/min/1.73m2 () (test code = 0175008376) MIKA (test code = MIKA) Association of Glomerular Filtration Rate (GFR) and Staging of Kidney Disease* + --+ --+ ------+| GFR (mL/min/1.73 m2) ?| With Kidney Damage ?| ?Without Kidney Damage+ --------+ --------+ +| ?>90 ?| ?Stage one ?| ? Normal ?+ ---+ ---+ -------+| ?60-89 ?| ?Stage two ?| ? Decreased GFR ? + --+ --+ ------+| ?30-59 ?| ?Stage three ?| ? Stage three ? + --+ --+ ------+| ?15-29 ?| ?Stage four ? | ? Stage four ?+ ---+ ---+ -------+| ?<15 (or dialysis) ? ?| ?Stage five ? | ? Stage five ?+ ---+ ---+ -------+ *Each stage assumes the associated GFR level has been in effect for at least three months. ?Stages 1 to 5, with or without kidney disease, indicate chronic kidney disease. Notes: Determination of stages one and two (with eGFR >59mL/min/1.73 m2) requires estimation of kidney damage for at least three months as defined by structural or functional abnormalities of the kidney, manifested by either:Pathological abnormalities or Markers of kidney damage (including abnormalities in the composition of the blood or urine or abnormalities in imaging tests). Lab Interpretation Abnormal (test code = 88479-1) [facility] (ALB, T.PRO, BILI T, BU/BC, ALT, AST, ALK PHOS)2020-03-03 20:37:00 Test Item Value Reference Range Interpretation Comments TOTAL BILI (test code = 5500675886) 0.5 mg/dL 0.1-1.1 BILI UNCON (test code = 2662391421) 0.4 mg/dL 0.1-1.1 BILI CONJ (test code = 9953632028) 0.0 mg/dL 0-0.3 T PROTEIN (test code = 8974387562) 7.5 g/dL 6.3-8.2 ALBUMIN (test code = 5910994265) 3.8 g/dL 3.5-5 ALK PHOS (test code = 1073938626) 77 U/L 34-122 ALTv (test code = 1742-6) 66 U/L 5-35 H AST(SGOT) (test code = 7187123108) 58 U/L 13-40 H Lab Interpretation (test code = Abnormal 05502-4) [facility] CampusLipase [id number] 20:36:00 Test Item Value Reference Range Interpretation Comments LIPASE (test code = 1586224038) 143 U/L 0-220 Lab Interpretation (test code = Normal 88807-0) [facility] CampusCOMPREHENSIVE METABOLIC [id number] 00:00:00 Test Item Value Reference Range Interpretation Comments GLUCOSE (test code = 2217) 102 MG/DL BUN (test code = 2208) 13 MG/DL CREATININE (test code = 2214) 0.85 MG/DL eGFR AMER. (test code 99 ML/MIN/1.73 = 05000) eGFR NON- AMER. (test 86 ML/MIN/1.73 code = 84471) CALC BUN/CREAT (test code = 15 RATIO 2235) SODIUM (test code = 2231) 142 MEQ/L POTASSIUM (test code = 2228) 4.2 MEQ/L CHLORIDE (test code = 2215) 105 MEQ/L CARBON DIOXIDE (test code = 23 MEQ/L 2205) CALCIUM (test code = 2209) 9.4 MG/DL PROTEIN, TOTAL (test code = 7.2 G/DL 2228) ALBUMIN (test code = 2201) 4.3 G/DL CALC GLOBULIN (test code = 2.9 G/DL 2239) CALC A/G RATIO (test code = 1.5 RATIO 4) BILIRUBIN, TOTAL (test code = <0.2 MG/DL 2206) ALKALINE PHOSPHATASE (test 81 U/L code = 2204) AST (test code = 2218) 23 U/L ALT (test code = 2219) 33 U/L [id number] 00:00:00 Test Item Value Reference Range Interpretation Comments TSH, THIRD GENERATION (test code 2.710 UIU/ML = 2821) [id number] 00:00:00 Test Item Value Reference Range Interpretation Comments TSH, THIRD GENERATION (test code 2.710 UIU/ML = 2821) [id number] 00:00:00 Test Item Value Reference Range Interpretation Comments TSH, THIRD GENERATION (test code 2.710 UIU/ML = 2821) VITAMIN D, 25 [id number] 00:00:00 Test Item Value Reference Range Interpretation Comments VITAMIN D, 25 OH (test code = 4958) 23 NG/ML VITAMIN D, 25 [id number] 00:00:00 Test Item Value Reference Range Interpretation Comments VITAMIN D, 25 OH (test code = 4958) 23 NG/ML LIPID [id number] 00:00:00 Test Item Value Reference Range Interpretation Comments CHOLESTEROL (test code = 2210) 197 MG/DL TRIGLYCERIDES (test code = 2232) 336 MG/DL HDL CHOLESTEROL (test code = 2220) 31 MG/DL CALC LDL CHOL (test code = 2237) 99 MG/DL RISK RATIO LDL/HDL (test code = 3.19 RATIO 2238) LIPID [id number] 00:00:00 Test Item Value Reference Range Interpretation Comments CHOLESTEROL (test code = 2210) 197 MG/DL TRIGLYCERIDES (test code = 2232) 336 MG/DL HDL CHOLESTEROL (test code = 2220) 31 MG/DL CALC LDL CHOL (test code = 2237) 99 MG/DL RISK RATIO LDL/HDL (test code = 3.19 RATIO 2238) COMPREHENSIVE METABOLIC [id number] 00:00:00 Test Item Value Reference Range Interpretation Comments GLUCOSE (test code = 2217) 102 MG/DL BUN (test code = 2208) 13 MG/DL CREATININE (test code = 2214) 0.85 MG/DL eGFR AMER. (test code 99 ML/MIN/1.73 = 92224) eGFR NON- AMER. (test 86 ML/MIN/1.73 code = 47482) CALC BUN/CREAT (test code = 15 RATIO 2235) SODIUM (test code = 2231) 142 MEQ/L POTASSIUM (test code = 2228) 4.2 MEQ/L CHLORIDE (test code = 2215) 105 MEQ/L CARBON DIOXIDE (test code = 23 MEQ/L 2205) CALCIUM (test code = 2209) 9.4 MG/DL PROTEIN, TOTAL (test code = 7.2 G/DL 2228) ALBUMIN (test code = 2201) 4.3 G/DL CALC GLOBULIN (test code = 2.9 G/DL 2240) CALC A/G RATIO (test code = 1.5 RATIO 4) BILIRUBIN, TOTAL (test code = <0.2 MG/DL 2206) ALKALINE PHOSPHATASE (test 81 U/L code = 2204) AST (test code = 2218) 23 U/L ALT (test code = 2219) 33 U/L SEDIMENTATION [id number] 00:00:00 Test Item Value Reference Range Interpretation Comments SEDIMENTATION RATE (test code = 41 MM/HOUR 1017) SEDIMENTATION [id number] 00:00:00 Test Item Value Reference Range Interpretation Comments SEDIMENTATION RATE (test code = 41 MM/HOUR 1017) C-REACTIVE [id number] 00:00:00 Test Item Value Reference Range Interpretation Comments C-REACTIVE PROTEIN (test code = 0.4 MG/DL 3513) C-REACTIVE [id number] 00:00:00 Test Item Value Reference Range Interpretation Comments C-REACTIVE PROTEIN (test code = 0.4 MG/DL 3513) URIC [id number] 00:00:00 Test Item Value Reference Range Interpretation Comments URIC ACID (test code = 2233) 5.5 MG/DL URIC [id number] 00:00:00 Test Item Value Reference Range Interpretation Comments URIC ACID (test code = 2233) 5.5 MG/DL VITAMIN D, 25 [id number] 00:00:00 Test Item Value Reference Range Interpretation Comments VITAMIN D, 25 OH (test code = 4958) 20 NG/ML VITAMIN D, 25 [id number] 00:00:00 Test Item Value Reference Range Interpretation Comments VITAMIN D, 25 OH (test code = 4958) 20 NG/ML RHEUMATOID FACTOR, [id number] 00:00:00 Test Item Value Reference Range Interpretation Comments RHEUMATOID FACTOR, QUANT (test code <10 IU/ML = 3502) RHEUMATOID FACTOR, [id number] 00:00:00 Test Item Value Reference Range Interpretation Comments RHEUMATOID FACTOR, QUANT (test code <10 IU/ML = 3502) RHEUMATOID FACTOR, [id number] 00:00:00 Test Item Value Reference Range Interpretation Comments RHEUMATOID FACTOR, QUANT (test code <10 IU/ML = 3502) NICOLA NON-REFLEX TO [id number] 00:00:00 Test Item Value Reference Range Interpretation Comments ANTI-NUCLEAR ANTIBODIES (test code = NEGATIVE 3506) NICOLA NON-REFLEX TO [id number] 00:00:00 Test Item Value Reference Range Interpretation Comments ANTI-NUCLEAR ANTIBODIES (test code = NEGATIVE 3506) [id number] 00:00:00 Test Item Value Reference Range Interpretation Comments TSH, THIRD GENERATION (test code 7.030 UIU/ML = 2821) [id number] 00:00:00 Test Item Value Reference Range Interpretation Comments TSH, THIRD GENERATION (test code 7.030 UIU/ML = 2821) [id number] 00:00:00 Test Item Value Reference Range Interpretation Comments TSH, THIRD GENERATION (test code 7.030 UIU/ML = 2821) LIPID [id number] 00:00:00 Test Item Value Reference Range Interpretation Comments CHOLESTEROL (test code = 2210) 231 MG/DL TRIGLYCERIDES (test code = 2232) 577 MG/DL HDL CHOLESTEROL (test code = 26 MG/DL 2220) CALC LDL CHOL (test code = 2237) NOTE MG/DL RISK RATIO LDL/HDL (test code = (NOTE) RATIO 2238) LIPID [id number] 00:00:00 Test Item Value Reference Range Interpretation Comments CHOLESTEROL (test code = 2210) 231 MG/DL TRIGLYCERIDES (test code = 2232) 577 MG/DL HDL CHOLESTEROL (test code = 26 MG/DL 2220) CALC LDL CHOL (test code = 2237) NOTE MG/DL RISK RATIO LDL/HDL (test code = (NOTE) RATIO 2238) THYROID II PROFILE (T3U, T4, T7, TSH)2017-04-16 00:00:00 Test Item Value Reference Range Interpretation Comments T3 UPTAKE (test code = 2817) 26.8 % T4 (THYROXINE) (test code = 7.5 UG/DL 2819) CALCULATED T7 (FTI) (test code = 2.01 2820) TSH (test code = 2821) 4.180 UIU/ML THYROID II PROFILE (T3U, T4, T7, TSH)2017-04-16 00:00:00 Test Item Value Reference Range Interpretation Comments T3 UPTAKE (test code = 2817) 26.8 % T4 (THYROXINE) (test code = 7.5 UG/DL 2819) CALCULATED T7 (FTI) (test code = 2.01 2820) TSH (test code = 2821) 4.180 UIU/ML COMPREHENSIVE METABOLIC [id number] 00:00:00 Test Item Value Reference Range Interpretation Comments GLUCOSE (test code = 2217) 99 MG/DL BUN (test code = 2208) 13 MG/DL CREATININE (test code = 2214) 0.82 MG/DL eGFR AMER. (test code 105 ML/MIN/1.73 = 13853) eGFR NON- AMER. (test 91 ML/MIN/1.73 code = 38047) CALC BUN/CREAT (test code = 16 RATIO 2235) SODIUM (test code = 2231) 142 MEQ/L POTASSIUM (test code = 2228) 4.6 MEQ/L CHLORIDE (test code = 2215) 104 MEQ/L CARBON DIOXIDE (test code = 26 MEQ/L 2205) CALCIUM (test code = 2209) 10.0 MG/DL PROTEIN, TOTAL (test code = 7.8 G/DL 2228) ALBUMIN (test code = 2201) 4.5 G/DL CALC GLOBULIN (test code = 3.3 G/DL 2240) CALC A/G RATIO (test code = 1.4 RATIO 2234) BILIRUBIN, TOTAL (test code = 0.2 MG/DL 2206) ALKALINE PHOSPHATASE (test 80 U/L code = 2204) AST (test code = 2218) 26 U/L ALT (test code = 2219) 37 U/L COMPREHENSIVE METABOLIC [id number] 00:00:00 Test Item Value Reference Range Interpretation Comments GLUCOSE (test code = 2217) 99 MG/DL BUN (test code = 2208) 13 MG/DL CREATININE (test code = 2214) 0.82 MG/DL eGFR AMER. (test code 105 ML/MIN/1.73 = 29874) eGFR NON- AMER. (test 91 ML/MIN/1.73 code = 47781) CALC BUN/CREAT (test code = 16 RATIO 2235) SODIUM (test code = 2231) 142 MEQ/L POTASSIUM (test code = 2228) 4.6 MEQ/L CHLORIDE (test code = 2215) 104 MEQ/L CARBON DIOXIDE (test code = 26 MEQ/L 2205) CALCIUM (test code = 2209) 10.0 MG/DL PROTEIN, TOTAL (test code = 7.8 G/DL 2228) ALBUMIN (test code = 2201) 4.5 G/DL CALC GLOBULIN (test code = 3.3 G/DL 2240) CALC A/G RATIO (test code = 1.4 RATIO 2234) BILIRUBIN, TOTAL (test code = 0.2 MG/DL 2206) ALKALINE PHOSPHATASE (test 80 U/L code = 2204) AST (test code = 2218) 26 U/L ALT (test code = 2219) 37 U/L"
[2022-07-29 14:18] LABS: Arterial Blood Carboxyhemoglob 8.1 % (0-1.5); Blood Gas Oxyhemoglobin 66.4 % (94-97); Blood O2 Saturation 73.4 % (92-98.5)
[2022-07-29 14:39] LABS: Absolute Lymphocytes (CBC) 2.2 K/uL (0.7-4.9); Lymphocytes % 36.6 % (15.3-44.8); MCV 87.4 fL (80-100); MPV 10.3 fL (7.6-11.3); RBC Red Blood Cell Count 4.47 M/uL (3.86-4.86)
[2022-07-29] MEDS ORDERED: INSULIN -REGULAR HUMAN 50 UNIT/0.5 ML ML ONE (15:26)
[2022-07-29] MEDS ORDERED: NA CHLORIDE 0.9% 1,000 ML ONE (15:55)
[2022-07-29 16:29] LABS: Specific Gravity > 1.030 (1.005-1.030); Urine Bacteria None Seen /HPF (<20); Urine Bilirubin NEGATIVE (Negative); Urine Blood Negative (Negative); Urine Clarity Clear (Clear); Urine Color Colorless (Yellow); Urine Glucose 4+ (Over) (Negative); Urine Protein NEGATIVE (Negative); Urine RBC <5 /HPF (None Seen); Urine Urobilinogen Normal (Normal)
--- NOTE | 2022-07-29 20:12 | EDPHYS ---
Physician Documentation [facility] Name: Zakia Franks Age: 42 yrs Sex: Female : 1980 Arrival Date: 07/29/2022 Time: 13:10 Bed 14 Private MD: ED Physician Martir Gamez HPI: 07/29 13:41 This 42 yrs old Female presents to ER via Ambulatory with complaints of High Blood jm Sugar. 13:41 Onset: The symptoms/episode began/occurred gradually, 1 week(s) ago. This is a 42 year jmm old female with a history of DM, hlp, htn that presents to the ED with complaints of increased blood glucose, unable to control at home. Increased urination, thirst. Does not take insulin. . 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 - Social history:: Smoking status: Patient reports the use of cigarette tobacco products, smokes one pack cigarettes per day. ROS: 13:41 Constitutional: Negative for fever, chills, and weight loss, Cardiovascular: Negative jmm for chest pain, palpitations, and edema, Respiratory: Negative for shortness of breath, cough, wheezing, and pleuritic chest pain. 13:41 Endocrine: Positive for polydipsia, polyuria. 13:41 All other systems are negative. Exam: 13:41 Constitutional: This is a well developed, well nourished patient who is awake, alert, jmm and in no acute distress. Head/Face: atraumatic. Eyes: EOMI, no conjunctival erythema appreciated ENT: Moist Mucus Membranes Neck: Trachea midline, Supple Chest/axilla: Normal chest wall appearance and motion. Cardiovascular: Regular rate and rhythm. No edema appreciated Respiratory: Normal respirations, no respiratory distress appreciated Abdomen/GI: Non distended Back: Normal ROM Skin: General appearance color normal MS/ Extremity: Moves all extremities, no obvious deformities appreciated, no edema noted to the lower extremities Neuro: Awake and alert Psych: Behavior is normal, Mood is normal, Patient is cooperative and pleasant Vital Signs: 13:40 BP 112 / 83; Pulse 98; Resp 16 S; Temp 98(TE); Pulse Ox 100% on R/A; Weight 110.68 kg aa5 (R); Height 5 ft. 7 in. (R); 15:30 BP 116 / 78; Pulse 92; Resp 18; Pulse Ox 98% on R/A; ph 19:00 BP 130 / 69; Pulse 89; Resp 16; Pulse Ox 99% ; pf1 13:40 Body Mass Index 38.22 (110.68 kg, 170.18 cm) aa5 MDM: 13:41 Patient medically screened. [facility] 19:48 Differential diagnosis: hyperglyemia, dka, sepsis. Data reviewed: vital signs, nurses [facility] notes, lab test result(s). I considered the following discharge prescriptions or medication management in the emergency department Medications were administered in the Emergency Department. See 13:42 Order name: CBC with Diff; Complete Time: 14:58 [facility] 07/29 13:42 Order name: BMP; Complete Time: 15:16 [facility] 07/29 13:42 Order name: ABG: hyperglycemia; Complete Time: 14:42 [facility] 07/29 13:52 Order name: Glucose; Complete Time: 15:16 [facility] 07/29 14:02 Order name: Glucose, Ancillary Testing; Complete Time: 14:03 [facility] 07/29 15:41 Order name: Urinalysis W/Microscopic; Complete Time: 16:34 07/29 18:51 Order name: Glucose, Ancillary Testing; Complete Time: 18:55 [facility] 07/29 13:42 Order name: Urine Dipstick-Ancillary (obtain specimen); Complete Time: 16:05 [facility] 07/29 13:42 Order name: Saline Lock; Complete Time: 14:23 [facility] 07/29 18:34 Order name: Finger Stick; Complete Time: 19:10 [facility] Administered Medications: 15:30 Drug: Insulin Regular Human IVP 10 units {Co-Signature: [email or web address] (Ginette Barrios RN).} ph Route: IVP; Site: right antecubital; 18:33 Follow up: Response: No adverse reaction ph 15:31 Drug: NS 0.9% IV 1000 ml Route: IV; Rate: 1 bolus; Site: right antecubital; ph 16:05 Drug: NS 0.9% IV 1000 ml Route: IV; Rate: 1 bolus; Site: right antecubital; ph Point of Care Testing: Blood Glucose: 13:51 Blood Glucose: High (>450 mg/dL); aa5 Ranges: Critical Glucose Levels:Adult <50 mg/dl or >400 mg/dl <40 mg/dl or >180 mg/dl Disposition Summary: 07/29/22 20:11 Discharge Ordered Location: Home cp Problem: an acute exacerbation cp Symptoms: have improved cp Condition: Stable cp Diagnosis - Diabetes mellitus due to underlying condition with hyperglycemia cp Followup: jmm - With: Private Physician - When: 1 - 2 days - Reason: Recheck today's complaints, Continuance of care, Re-evaluation by your physician Discharge Instructions: - Discharge Summary Sheet jm - Hyperglycemia [facility] - Daily Diabetes Mellitus Record cp - Blood Glucose Monitoring, Adult cp - Diabetes Mellitus and Nutrition, Adult cp - Form - Return To Work cp Forms: - Medication Reconciliation Form cp - Thank You Letter cp - Antibiotic Education cp - Prescription Opioid Use cp Signatures: Dispatcher [employer] Michel Raman PA PA jmm Calderon, Audri RN RN aa5 Amaris Hodgson RN RN ph Derek Wayne PA PA cp Ginette Barrios RN ap3 Corrections: (The following items were deleted from the chart) 13:41 13:41 Allergies: Aspirin; aa5 aa5
--- NOTE | 2022-07-29 20:12 | ER ---
Nurse's Notes [facility] Name: Zakia Franks Age: 42 yrs Sex: Female : 1980 Arrival Date: 07/29/2022 Time: 13:10 Bed 14 Private MD: Diagnosis: Diabetes mellitus due to underlying condition with hyperglycemia Presentation: 07/29 13:40 Chief complaint: Patient states: "my blood sugar is over 600 for about a week". Reports aa5 urinary frequency and increased thirst. 13:40 Method Of Arrival: Ambulatory aa5 13:40 Coronavirus screen: At this time, the client does not indicate any symptoms associated aa5 with coronavirus-19. Ebola Screen: Patient denies travel to an Ebola-affected area in the 21 days before illness onset. Initial Sepsis Screen: Does the patient meet any 2 criteria? No. Patient's initial sepsis screen is negative. Does the patient have a suspected source of infection? No. Patient's initial sepsis screen is negative. Risk Assessment: Do you want to hurt yourself or someone else? Patient reports no desire to harm self or others. Onset of symptoms was July 2022. 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 - Social history:: Smoking status: Patient reports the use of cigarette tobacco products, smokes one pack cigarettes per day. Screenin:20 [facility] ED Fall Risk Assessment (Adult) History of falling in the last 3 months, ph including since admission No falls in past 3 months (0 pts) Confusion or Disorientation No (0 pts) Intoxicated or Sedated No (0 pts) Impaired Gait No (0 pts) Mobility Assist Device Used No (0 pt) Altered Elimination No (0 pt) Score/Fall Risk Level 0 - 2 = Low Risk Oriented to surroundings, Maintained a safe environment, Hourly rounding (assess needs \\T\\ fall precautionary measures) done. Abuse screen: Denies threats or abuse. Denies injuries from another. Nutritional screening: No deficits noted. Tuberculosis screening: No symptoms or risk factors identified. Assessment: 14:21 General: Appears in no apparent distress. Behavior is calm, cooperative, appropriate ph for age, drowsy, Reports fatigue for >3 days, Denies fever, fatigue. Pain: Denies pain. Neuro: Level of Consciousness is alert, obeys commands, Oriented to person, place, time, situation. Cardiovascular: Capillary refill < 3 seconds in bilateral fingers Patient's skin is warm and dry. Respiratory: Airway is patent Respiratory effort is even, unlabored, Respiratory pattern is regular, symmetrical. GI: Reports nausea, Patient currently denies vomiting. : Reports urinary frequency. Derm: Skin is intact, Skin is pink, warm \\T\\ dry. Musculoskeletal: Circulation, motion, and sensation intact. Range of motion: intact in all extremities. 16:00 Reassessment: Patient appears in no apparent distress at this time. Patient and/or ph family updated on plan of care and expected duration. Pain level reassessed. Patient is alert, oriented x 3, equal unlabored respirations, skin warm/dry/pink. 19:00 General: Appears in no apparent distress. comfortable, well groomed, well developed, pf1 Behavior is calm, cooperative, appropriate for age, quiet. 19:00 Pain: Denies pain. Neuro: No deficits noted. Level of Consciousness is awake, alert, pf1 obeys commands, Oriented to person, place, time, situation. Cardiovascular: Capillary refill < 3 seconds Patient's skin is warm and dry. Respiratory: No deficits noted. Airway is patent Respiratory effort is even, unlabored, Respiratory pattern is regular, symmetrical. GI: Reports nausea, Patient currently denies abdominal pain, vomiting. : No deficits noted. EENT: No deficits noted. Vital Signs: 13:40 BP 112 / 83; Pulse 98; Resp 16 S; Temp 98(TE); Pulse Ox 100% on R/A; Weight 110.68 kg aa5 (R); Height 5 ft. 7 in. (R); 15:30 BP 116 / 78; Pulse 92; Resp 18; Pulse Ox 98% on R/A; ph 19:00 BP 130 / 69; Pulse 89; Resp 16; Pulse Ox 99% ; pf1 13:40 Body Mass Index 38.22 (110.68 kg, 170.18 cm) aa5 ED Course: 13:10 Patient arrived in ED. am2 13:13 Michel Crouch PA is PHCP. [facility] 13:13 Martir Gamez MD is Attending Physician. [facility] 13:40 Arm band placed on. aa5 13:53 Triage completed. aa5 14:00 Amaris Hodgson, OSCAR is Primary Nurse. ph 14:21 Patient has correct armband on for positive identification. Placed in gown. Bed in low ph position. Call light in reach. Side rails up X 1. Pulse ox on. NIBP on. Door closed. Noise minimized. 14:21 Initial lab(s) drawn, by la, sent to lab. Inserted saline lock: 22 gauge in right ph antecubital area, using aseptic technique. Blood collected. 14:23 Glucose Sent. ph 14:23 BMP Sent. ph 14:23 CBC with Diff Sent. ph 19:46 No provider procedures requiring assistance completed. ph 19:55 PHCP role handed off by Michel Crouch PA cp 19:55 Derek Wayne PA is PHCP. cp 20:17 IV discontinued, intact, bleeding controlled, No redness/swelling at site. Pressure pf1 dressing applied. Administered Medications: 15:30 Drug: Insulin Regular Human IVP 10 units {Co-Signature: [email or web address] (Ginette Barrios RN).} ph Route: IVP; Site: right antecubital; 18:33 Follow up: Response: No adverse reaction ph 15:31 Drug: NS 0.9% IV 1000 ml Route: IV; Rate: 1 bolus; Site: right antecubital; ph 16:05 Drug: NS 0.9% IV 1000 ml Route: IV; Rate: 1 bolus; Site: right antecubital; ph Medication: 14:21 VIS not applicable for this client. ph Point of Care Testing: Blood Glucose: 13:51 Blood Glucose: High (>450 mg/dL); aa5 Ranges: Outcome: 20:11 Discharge ordered by . cp 20:17 Discharged to home ambulatory. pf1 20:17 Condition: stable 20:17 Discharge instructions given to patient, Instructed on discharge instructions, follow up and referral plans. Demonstrated understanding of instructions, follow-up care. 20:17 Patient left the ED. pf1 Signatures: Michel Crouch PA PA jmm Calderon, Audri, RN RN aa5 Amaris Hodgson RN RN ph Derek Wayne, Ginette Menjivar cp, am2 Landy lloyd RN RN pf1 Ginette Barrios RN ap3 Corrections: (The following items were deleted from the chart) 13:41 13:41 Allergies: Aspirin; aa5 aa5
[2022-07-30 06:00] VITALS: TEMP 98
[2022-07-30 06:02] VITALS: BP 116/78; O2SAT 98
== END 2022-07-29 20:17 | disposition home or self-care (01) ==
LOC: ER 13:06
DX: E11.65 Type 2 diabetes mellitus with hyperglycemia (principal)
CPT/HCPCS: 36415; 80048; 81001; 82805; 82947; 85025; J1815; J7030